=== PATIENT | female | born 1935 | race Caucasian/White ===

== ENCOUNTER 2017-03-12 15:36 | Inpatient (IN) ==
[2017-03-12 16:15] LABS: Basophils % 0.1 %; Eosinophils # 0.2 K/mcL (0.0-0.6); Eosinophils % 2.4 %; Hematocrit 20.9 % (35.3-44.9); Immature Granulocytes % 0.1 % (0-4); Lymphocytes # 2.7 K/mcL (0.6-4.6); Lymphocytes % 38.3 %; Mean Corpuscular HGB Conc 30.6 g/dL (31.6-35.5); Mean Corpuscular Volume 94.6 fL (83.0-100.0); Mean Platelet Volume 10.1 fL (9.4-12.4); Monocytes # 0.6 K/mcL (0.0-1.3); Monocytes % 8.3 %; Neutrophils # 3.6 K/mcL (1.6-8.9); Nucleated Red Blood Cells 0.3 /100 WBC (0); Platelet Count 284 K/mcL (140-400); Red Blood Count 2.21 M/mcL (3.82-4.97); Red Cell Distribution Width 14.2 % (11.5-14.5); Segmented Neutrophils % 50.8 %
[2017-03-12] MEDS ORDERED: 0.9 % Sodium Chloride 1,000 ML IVC ONE (16:20)
--- NOTE | 2017-03-12 16:20 | Emergency Department Note ---
Disposition Clinical Impression: GI bleed Qualifiers: GI bleed type/associated pathology: melena Qualified Code(s): K92.1 - Melena Anemia Qualifiers: Anemia type: unspecified type Qualified Code(s): D64.9 - Anemia, unspecified Disposition: Admitted As Inpatient Time of Disposition: 17:28 General Adult HPI - General Chief complaint: ED Weakness Stated complaint: Low hgb Time Seen by Provider: 03/12/17 15:40 Source: patient, EMS Mode of arrival: EMS Limitations: no limitations Nursing Notes Reviewed: Yes Vital Signs Reviewed: Yes - History of Present Illness HPI Narrative: 81-year-old female history of CAD, hypertension, diabetes, DVT on Eliquis presents to the ED via EMS from [facility] for abnormal hemoglobin. She is a poor historian and cannot provide insight into today's events. Per EMS report patient was sent here for a blood transfusion due to hemoglobin 6.0. She reports black tarry stools or a past several days. Denies any headache, chest pain, shortness of breath or abdominal pain. She reports episode of nausea last night which she believes was due to something she ate. She denies any trauma or fall. Upon medical record review she takes Eliquis for DVT as of November. In [facility] patient has been referred to Dr. Simmons for suspected G.I. bleed. Endoscopy was not performed due to no POA to give consent. Pain Scale: 0 - Related Data Allergies Allergy/AdvReac Type Severity Reaction Status Date / Time No Known Allergies Allergy Verified 03/12/17 16:33 All systems ED: reviewed and negative except as stated. Constitutional: Denies: fever, chills, weakness Cardiovascular: Denies: chest pain Respiratory: Denies: cough, dyspnea Gastrointestinal: Reports: melena. Denies: abdominal pain, nausea, vomiting Genitourinary: Denies: urgency, dysuria Musculoskeletal: Denies: back pain, neck pain Integumentary: Denies: rash, abrasion Neurological: Denies: headache Past Medical History - Past Medical History Attestation: Yes The following information was validated with the patient. Source: patient Medical history: Reports: coronary artery disease, diabetes, hypertension Psychiatric history: Reports: no psych history - Social History Smoking Status: Never smoker Smokeless Tobacco Status: No Alcohol use: Reports: none Drug use: Reports: none Physical Exam - General Limitations: no limitations General appearance: alert, in no apparent distress, other - Head Head exam: atraumatic, normocephalic, normal inspection - Eye Eye exam: Present: normal appearance, PERRL, EOMI, other (pale conjunctiva). Absent: scleral icterus - ENT ENT exam: normal exam, normal oropharynx, mucous membranes moist - Neck Neck exam: Present: normal inspection, full ROM, trachea midline - Chest Chest inspection: Present: normal inspection, symmetric chest wall rise - Respiratory Respiratory exam: Present: normal lung sounds bilaterally - Cardiovascular Cardiovascular exam: Present: regular rate, normal rhythm, normal heart sounds - Abdominal Exam Abdominal exam: Present: soft, Non-Tender, normal bowel sounds. Absent: tenderness, distention, guarding, rebound, rigidity - Rectal Exam Associate Juvenile Court Judge present during exam: Yes Rectal exam: Present: heme (+) stool, black stool, hemorrhoids - Extremities Exam Extremities exam: Present: normal inspection, full ROM, normal capillary refill. Absent: tenderness, pedal edema, calf tenderness - Back Exam Back exam: Present: normal inspection, full ROM. Absent: tenderness, CVA tenderness (R), CVA tenderness (L), vertebral tenderness - Neurological Exam Neurological exam: Present: alert, oriented X3 - Expanded Neurological Exam Patient oriented to: Present: person, place (She knows this is a hospital but answered [facility]), time (February is the month) Speech: Present: fluid speech Cranial nerves: EOM function (II, III, IV, ): Normal, facial sensation (V): Normal, facial palsy (VII): Normal, spinal accessory function (XI): Normal, tongue deviation (XII): Normal Upper motor neuron exam: lasha neglect: Absent bilaterally, pronator drift: Absent bilaterally Sensory exam upper extremity: light touch: Normal Sensory exam lower extremity: light touch: Normal - Psychiatric Psychiatric exam: Present: normal affect, normal mood - Skin Skin exam: Present: warm, dry, intact, normal color Course Course Narrative: 81-year-old female presents for possible blood transfusion. Report hemoglobin 6 at retirement. Reports melanic stool over the past several days. She appears in no acute distress. Conjunctiva pale. No sclera icterus. She is alert and oriented to person and time. She mistaken that this was [facility] but she knew that it was a hospital. Denies any chest pain or shortness of breath. Lung sounds are clear bilaterally. Abdomen is soft nontender nondistended. Rectal exam revealed a normal tone with black tarry stool. Will check that hemoglobin, chemistry, type and screen, and troponin. EKG performed showing LBBB, no old EKG for comparison. Anticipate admission. Review of medical records reveals scheduled EGD with Dr. Simmons in December 2016 but no endoscopy has been performed. She takes Eliquis for DVT - Reevaluation(s) Reevaluation #1: Stool hemoccult positive. Hemoglobin 6.4. Will transfuse 2 units pRBCs. Plan to admit. Patient reported to RN that she may have fallen today. Will order CT head with history of anticoagulant use. Awaiting hospitalist for admission. Time: 16:49 Reevaluation #2: CT head does not reveal acute intracranial abnormality. Will order protonix for GI bleed. Currently transfusing unit of pRBC. Time: 18:18 - Consultations Consultation #1: Spoke with on-call hospitalist lila Jacobs to admit for GI bleed anemia. No further orders at this time. Currently receiving 2 units pRBC transfusion. Consent obtained with attending physician Dr. Robin and myself. Time: 18:02 Vital Signs Temperature 98.0 F 03/12/17 15:44 Pulse Rate 88 03/12/17 15:44 Respiratory Rate 16 03/12/17 15:44 Blood Pressure 151/68 03/12/17 15:44 O2 Sat by Pulse Oximetry 98 03/12/17 15:44 Temperature 97.9 F 03/12/17 18:10 Pulse Rate 91 03/12/17 18:10 Respiratory Rate 18 03/12/17 18:10 Blood Pressure 139/54 03/12/17 18:10 O2 Sat by Pulse Oximetry 96 03/12/17 18:10 Oxygen Delivery Oxygen Delivery Room Air Medical Decision Making - Medical Records Medical records reviewed: Yes I reviewed the patient's medical records. - Lab Data Lab results reviewed: Yes I reviewed the patient's lab results. Result diagrams: 03/12/17 16:02 03/12/17 16:02 Lab Results 03/12/17 03/12/17 03/12/17 Range/Units 16:02 16:02 16:04 WBC 7.0 (4.3-11.1) K/mcL RBC 2.21 L (3.82-4.97) M/mcL Hgb 6.4 L (11.5-15.4) g/dL Hct 20.9 L (35.3-44.9) % MCV 94.6 (83.0-100.0) fL MCH 29.0 (28.0-33.3) pg MCHC 30.6 L (31.6-35.5) g/dL RDW 14.2 (11.5-14.5) % Plt Count 284 (140-400) K/mcL MPV 10.1 (9.4-12.4) fL Immature Gran % 0.1 (0-4) % Seg Neutrophils % 50.8 % Lymphocytes % 38.3 % Monocytes % 8.3 % Eosinophils % 2.4 % Basophils % 0.1 % Neutrophils # 3.6 (1.6-8.9) K/mcL Lymphocytes # 2.7 (0.6-4.6) K/mcL Monocytes # 0.6 (0.0-1.3) K/mcL Eosinophils # 0.2 (0.0-0.6) K/mcL Basophils # 0.0 (0.0-0.2) K/mcL Nucleated RBCs/100 WBC 0.3 H (0) /100 WBC Sodium 137 (136-145) mEq/L Potassium 4.5 (3.5-4.5) mEq/L Chloride 107 (98-109) mEq/L Carbon Dioxide 22 (19-29) mEq/L BUN 32 H (7-20) mg/dL Creatinine 1.26 H (0.57-1.11) mg/dL Est GFR ( Amer) 49 L (> 60) Est GFR (Non-Af Amer) 41 L (> 60) BUN/Creatinine Ratio 25 (6-26) Glucose 250 H (70-99) mg/dL Calculated Osmolality 299 (280-300) Calcium 8.6 (8.6-10.8) mg/dL Troponin I (0-0.03) ng/mL Stool Occult Blood Positive A (Negative) Blood Type Antibody Screen Crossmatch 03/12/17 03/12/17 Range/Units 16:09 16:10 WBC (4.3-11.1) K/mcL RBC (3.82-4.97) M/mcL Hgb (11.5-15.4) g/dL Hct (35.3-44.9) % MCV (83.0-100.0) fL MCH (28.0-33.3) pg MCHC (31.6-35.5) g/dL RDW (11.5-14.5) % Plt Count (140-400) K/mcL MPV (9.4-12.4) fL Immature Gran % (0-4) % Seg Neutrophils % % Lymphocytes % % Monocytes % % Eosinophils % % Basophils % % Neutrophils # (1.6-8.9) K/mcL Lymphocytes # (0.6-4.6) K/mcL Monocytes # (0.0-1.3) K/mcL Eosinophils # (0.0-0.6) K/mcL Basophils # (0.0-0.2) K/mcL Nucleated RBCs/100 WBC (0) /100 WBC Sodium (136-145) mEq/L Potassium (3.5-4.5) mEq/L Chloride (98-109) mEq/L Carbon Dioxide (19-29) mEq/L BUN (7-20) mg/dL Creatinine (0.57-1.11) mg/dL Est GFR ( Amer) (> 60) Est GFR (Non-Af Amer) (> 60) BUN/Creatinine Ratio (6-26) Glucose (70-99) mg/dL Calculated Osmolality (280-300) Calcium (8.6-10.8) mg/dL Troponin I 0.03 (0-0.03) ng/mL Stool Occult Blood (Negative) Blood Type AB POSITIVE Antibody Screen NEGATIVE Crossmatch See Detail - Radiology Data Radiology results reviewed: Yes I reviewed the patient's radiology results. Head CT 03/12/17 16:50 IMPRESSION: No acute intracranial abnormality is identified. Age-appropriate cortical atrophy, with chronic microvascular ischemic change. D/ / Darrell Zarate MD / Darrell Zarate MD Interpreting Provider: Darrell Zarate MD - EKG Data EKG #1 EKG attestation: Yes I reviewed and interpreted this EKG. EKG results narrative: EKG performed 1550 normal sinus rhythm with left bundle branch block QRS 143, there is appropriate disconcordant T wave inversion. No Sgarbossa criteria met. No old EKG available for comparison. Patient is not complaining of chest pain.
[2017-03-12 16:29] LABS: Calcium 8.6 mg/dL (8.6-10.8); Potassium 4.5 mEq/L (3.5-4.5)
[2017-03-12 16:34] LABS: Hemoglobin 6.4 g/dL (11.5-15.4)
--- NOTE | 2017-03-12 17:00 | Emergency Department Note ---
START Narrative - START START: I examined this patient and my medical decision-making was reviewed with the NETWORK OPERATIONS CENTER TECHNICIAN/PA/Advanced Practice Nurse/Resident Physician. I agree with the documented findings, disposition and treatment plan as described except to the extent set forth below. ED attending note: Patient seen with emergency medicine resident Dr. Goldsmith. Please see a copy of his note for details of the H&P, evaluation, management and disposition of this patient. 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 Patient complaining of black tarry stools she did have melenic guaiac positive stools. Hemoglobin is 6.4. 2 units PRBCs are being ordered for transfusion. Admission anticipated awaiting callback from hospitalist. Provided 45 minutes of critical care services for this patient.
[2017-03-12] MEDS ORDERED: Pantoprazole 40 MG VIAL IVP ONE ×2 (18:23→22:11)
[2017-03-12] MEDS ORDERED: Naloxone 0.4 MG/ML INJ IVP PRN (19:49)
[2017-03-12] MEDS ORDERED: Ondansetron ODT 4 MG TAB.RAPDIS PO PRN (19:57)
[2017-03-12] MEDS ORDERED: Cefuroxime PO 500 MG TABLET PO SCH (21:00)
[2017-03-12] MEDS ORDERED: metroNIDAZOLE 250 MG TABLET PO SCH (21:00)
[2017-03-12] MEDS ORDERED: Furosemide 40 MG/4 ML VIAL IVP ONE (21:24)
[2017-03-12] MEDS ORDERED: Ipratropium/Albuterol Neb 3 ML IH ONE (21:25)
[2017-03-12] MEDS ORDERED: Ipratropium/Albuterol Neb 3 ML ONE (21:27)
[2017-03-12 21:31] LABS: ABG Base Excess 0.4 mEq/L (-2.0 to 3.0); ABG Oxygen Saturation 99 % (95-98); ABG PCO2 33 mmHg (35-45); ABG PH 7.47 pH Units (7.32-7.45); ABG PO2 152 mmHg (85-104)
[2017-03-12 21:35] LABS: Blood Gas FiO2 40 %
[2017-03-12] MEDS ORDERED: Ondansetron 4 MG/2 ML VIAL IVP PRN (22:09)
--- NOTE | 2017-03-12 22:16 | Event Note ---
Date of Encounter: 03/12/17 Time of Encounter: 22:13 Patient seen and examined with nurse practitioner. 81-year-old female with Daisha the past few days. Hemoglobin 6 we are unsure of her baseline level. Suspected G.I. bleed probably upper. Protonix drip initiated. Patient had an event on arrival to the floor and actually a rapid response was called. nurse practitioner witnessed the patient choking on food. Her x-ray however shows evidence of pulmonary congestion after she had received one unit of blood. 40 IV Lasix was given. She is currently on 5 L of nasal oxygen. Will keep NPO. Speech to see. She denies any problems swallowing before
[2017-03-12] MEDS: Pantoprazole 40 MG in 0.9 % Sodium Chloride Mini Bag 100 ML IVC SCH (22:26)
[2017-03-12 22:53] LABS: INR 1.2; Prothrombin Time 12.6 Seconds (9.4-12.1)
[2017-03-12 22:56] LABS: Activated Partial Thrombo Time 30.6 Seconds (26.0-36.0)
--- NOTE | 2017-03-12 23:37 | Internal Med History&Physical ---
Date of Encounter: 03/13/17 Time of Encounter: 22:00 Assessment and Plan (1) GI bleed Current visit: Yes Status: Acute Patient has been monitored for possible GI bleed was supposed to undergo a endoscopy per however had not obtained consent from power of operator catalyst concentration she resides at [facility] and has been experiencing melena she had a drop in hemoglobin 6.4. Type and screen for 2 units PRBCs transfused. Continue to monitor for active bleeding Monitor CBC Patient's nothing by mouth Consult GI Protonix drip Qualifiers: GI bleed type/associated pathology: melena Qualified Code(s): K92.1 - Melena (2) CAD (coronary artery disease) Current visit: Yes Status: Acute He will continue with metoprolol will hold aspirin for now due to possible bleed Qualifiers: Coronary Disease-Associated Artery/Lesion type: [place] artery [place] vs. transplanted heart: [place] heart Associated angina: without angina Qualified Code(s): I25.10 - Atherosclerotic heart disease of [place] coronary artery without angina pectoris (3) Diabetes mellitus Current visit: Yes Status: Acute Patient is nothing by mouth Accu-Cheks every 6 hours with sliding scale. Once patient able to take oral will resume Accu-Cheks before meals at bedtime with sliding scale and basal insulin Qualifiers: Diabetes mellitus type: type 2 Diabetes mellitus complication status: without complication Diabetes mellitus terminal worker insulin use: with shelter use Qualified Code(s): E11.9 - Type 2 diabetes mellitus without complications ; Z79.4 - half-way (current) use of insulin (4) HTN (hypertension) Current visit: Yes Status: Acute Presently controlled we will continue with metoprolol Qualifiers: Hypertension type: essential hypertension Qualified Code(s): I10 - Essential (primary) hypertension (5) DVT prophylaxis Current visit: Yes Status: Acute (6) Hx of deep venous thrombosis Current visit: Yes Status: Acute 1 SCD - possible GI bleed Internal Medicine - H&P: HPI Chief complaint: low Hgb Admitted From: Emergency Dept Plans for Post Hospital Care: Home History of present illness: Ms. Sanchez is a 81 year old female past medical history of coronary artery disease hypertension dementia diabetes DVT on Eliquis information obtained from medical records patient is a poor historian has history of dementia. Coronary records patient resides in an [facility] she presently being monitored for possible GI bleed. Blood work drawn today revealed low hemoglobin in 6.4 She has been experiencing some black tarry stools. Apparently she has been referred to Dr. Simmons for suspected GI bleed she is to undergo endoscopy however it has not been performed due to power of operator catalyst concentration has not given consent. She was sent to the ER for evaluation. Upon presentation hemoglobin rechecked revealed hemoglobin 6.4 she stool occult positive troponin was 0.03 patient's creatinine was 1.20. Patient was typed and crossed for 2 units and and transfused. Protonic strip initiated she was admitted for further workup and evaluation.Upon arrival to the floor I walked into the room and witnessed the patient choking on food. A rapid response was called. She was suctioned Oxygen applied ABG/ xray obtained Her x-ray shows evidence of pulmonary congestion after she had received one unit of blood. 40 IV Lasix was given. She is currently on 5 L of nasal oxygen. Will keep NPO. She denies any problems swallowing, consult speech. Lung sound with scattered crackles heart sounds S1 S2 no rubs clicks gallops murmur noted Discussed case with Dr Tolbert who agrees with plan Past Med Surg Social Fam HX - Past Medical History Medical history: coronary artery disease, diabetes, hypertension, other Psychiatric history: no psych history - Past Surgical History Surgical History: cholecystectomy, hysterectomy, knee replacement - Social History Smoking Status: Never smoker Smokeless Tobacco Status: No Alcohol use: none Drug use: none - Family History Brother History Unknown: Yes Internal Medicine - H&P: Meds ALPRAZolam [Xanax 0.5 MG Tablet] 0.5 mg PO TID PRN 03/12/17 [History] Acetaminophen [Tylenol] 650 mg PO Q4H PRN 03/12/17 [History] Apixaban [Eliquis] 2.5 mg PO BID 03/12/17 [History] Aspirin Enteric Coated [Aspirin EC] 81 mg PO DAILY 03/12/17 [History] Cefuroxime PO [Ceftin] 500 mg PO BID 03/12/17 [History] Glimepiride [Amaryl] 4 mg PO BID 03/12/17 [History] Insulin Glargine [Lantus] 10 unit SQ QAM 03/12/17 [History] Insulin LISPRO [HumaLOG] 2 - 12 units SQ ACHS 03/12/17 [History] Metoprolol [Lopressor] 25 mg PO BID 03/12/17 [History] Ondansetron HCl [Zofran] 4 mg PO Q8H PRN 03/12/17 [History] OxyCODONE Immed Rel [Roxicodone 5 MG] 5 - 10 mg PO Q4HR PRN 03/12/17 [History] Sennosides/Docusate Sodium [Senna Plus] 1 each PO BID 03/12/17 [History] metroNIDAZOLE [Flagyl] 250 mg PO BID 03/12/17 [History] Allergies sulfamethoxazole [From Bactrim] Adverse Reaction (Verified 03/12/17 18:49) See Comments list from [place] trimethoprim [From Bactrim] Adverse Reaction (Verified 03/12/17 18:49) See Comments list from [place] ROS unobtainable: due to mental status All Systems PM: A 10-system review of systems was performed and is negative for pertinent findings except as documented above in the HPI. - Constitutional Vitals: Temp Pulse Resp BP Pulse Ox 97.9 F 134 24 150/72 91 03/12/17 21:30 03/12/17 22:02 03/12/17 22:02 03/12/17 21:30 03/12/17 22:02 General appearance: Present: A&O X 3 - Head Head exam: Present: atraumatic, normocephalic - Eye Eye exam: Present: PERRL, conjuntiva pink, sclera anicteric Pupils: Present: PERRL - Neck Neck exam general surgery: Present: supple, trachea midline. Absent: lymphadenopathy - Respiratory Respiratory exam: Present: rales. Absent: accessory muscle use, rhonchi, wheezes - Cardiovascular Cardiovascular exam: Present: RRR, +S1, +S2. Absent: diastolic murmur, gallop, rubs, systolic murmur - GI/Abdominal GI/Abdominal exam: Present: normal bowel sounds, soft, no peritoneal signs. Absent: distended, tenderness - Extremities Exam Extremities exam: Present: warm, radial pulses palpable and symetrical. Absent : calf tenderness, cyanotic, pedal edema - Neurological Exam Neurological exam: Present: CN II-XII intact, oriented X3, no focal deficits. Absent: pronater drift, facial droop, speech deficit - Skin Skin exam: Present: dry, intact Internal Med - H&P Results - Labs CBC & Chem 7: 03/12/17 16:02 03/12/17 16:02 - ABG Interpretation ABG results: 03/12/17 21:24 ABG pH 7.47 H ABG pCO2 33 L ABG pO2 152 H ABG HCO3 24.0 ABG Total CO2 25.0 ABG O2 Saturation 99 H ABG Base Excess 0.4 - Impressions ITS Impressions Chest X-Ray 03/12/17 21:29 IMPRESSION: Bilateral airspace disease is suspicious for pulmonary edema. Suspected left pleural effusion. Pneumonia could also have appearance. Follow-up is recommended D/ / Rosette Hidalgo Cha, MD / Rosette Hidalgo Cha, MD Interpreting Provider: Rosette Hidalgo Cha, MD - Diagnostic Studies Other Images Additional comments: Head CT 03/12/17 16:50 IMPRESSION: No acute intracranial abnormality is identified. Age-appropriate cortical atrophy, with chronic microvascular ischemic change. D/ / Darrell Zarate MD / Darrell Zarate MD Interpreting Provider: Darrell Zarate MD Chest X-Ray 03/12/17 21:29 IMPRESSION: Bilateral airspace disease is suspicious for pulmonary edema. Suspected left pleural effusion. Pneumonia could also have appearance. Follow-up is recommended D/ / Rosette Hidalgo Cha, MD / Rosette Hidalgo Cha, MD Interpreting Provider: Rosette Hidalgo Cha, MD - VTE Documentation of Mechanical Device: Graduated compression elastic hosiery
[2017-03-13] MEDS ORDERED: D5% in Water 1,000 ML IVC PRN (00:08)
[2017-03-13] MEDS ORDERED: Dextrose Gel 15 GM PO PRN ×2 (00:08)
[2017-03-13] MEDS ORDERED: *HR* Dextrose 50 % in Water (Syg) 50 ML SYRINGE IVP PRN (00:08)
[2017-03-13] MEDS: Pantoprazole 40 MG in 0.9 % Sodium Chloride Mini Bag 100 ML IVC SCH ×3 (02:35→23:23)
[2017-03-13] MEDS ORDERED: Pantoprazole 40 MG VIAL IVP SCH (06:00)
[2017-03-13] MEDS: Insulin LISPRO 300 UNITS/3 ML VIAL SQ SCH ×3 (06:08→17:21)
[2017-03-13 06:25] LABS: Basophils % 0.3 %; Eosinophils # 0.2 K/mcL (0.0-0.6); Hematocrit 20.4 % (35.3-44.9); Hemoglobin 6.4 g/dL (11.5-15.4); Immature Granulocytes % 0.5 % (0-4); Lymphocytes # 2.4 K/mcL (0.6-4.6); Lymphocytes % 35.3 %; Mean Corpuscular HGB Conc 31.4 g/dL (31.6-35.5); Mean Corpuscular Volume 92.3 fL (83.0-100.0); Mean Platelet Volume 9.9 fL (9.4-12.4); Monocytes # 0.6 K/mcL (0.0-1.3); Monocytes % 8.4 %; Neutrophils # 3.5 K/mcL (1.6-8.9); Nucleated Red Blood Cells 0.3 /100 WBC (0); Platelet Count 235 K/mcL (140-400); Red Blood Count 2.21 M/mcL (3.82-4.97); Red Cell Distribution Width 14.5 % (11.5-14.5); Segmented Neutrophils % 52.5 %
[2017-03-13 06:42] LABS: Calcium 8.3 mg/dL (8.6-10.8); Potassium 4.5 mEq/L (3.5-4.5)
[2017-03-13] MEDS ORDERED: Insulin DETEMIR 100 UNIT/ML X5UNITS SQ SCH (09:00)
--- NOTE | 2017-03-13 09:29 | Internal Med Progress Note ---
Date of Encounter: 03/13/17 Time of Encounter: 09:26 - Assessment and plan (1) CAD (coronary artery disease) Current Visit: No Status: Acute Qualifiers: Coronary Disease-Associated Artery/Lesion type: [place] artery [place] vs. transplanted heart: [place] heart Associated angina: without angina Qualified Code(s): I25.10 - Atherosclerotic heart disease of [place] coronary artery without angina pectoris (2) DVT prophylaxis Current Visit: Yes Status: Acute Assessment and plan: Due to GI bleed she is on SCDs only (3) Diabetes mellitus Current Visit: Yes Status: Acute Assessment and plan: Accu-Chek 4 times a day with sliding scale coverage Qualifiers: Diabetes mellitus type: type 2 Diabetes mellitus complication status: without complication Diabetes mellitus medical terminologist insulin use: with intermediate use Qualified Code(s): E11.9 - Type 2 diabetes mellitus without complications ; Z79.4 - [facility] (current) use of insulin (4) GI bleed Current Visit: Yes Status: Acute Assessment and plan: Patient is on the Levaquin and had melanotic stools. H&H every 6 transfused 2 units continue IV fluids and IV Protonix. General surgery plans to do EGD. Qualifiers: GI bleed type/associated pathology: melena Qualified Code(s): K92.1 - Melena (5) HTN (hypertension) Current Visit: Yes Status: Acute Assessment and plan: Continue home medicines for blood pressure as needed Qualifiers: Hypertension type: essential hypertension Qualified Code(s): I10 - Essential (primary) hypertension (6) Hx of deep venous thrombosis Current Visit: Yes Status: Acute Assessment and plan: Patient had DVT in November. I would like to know the details from the previous record about the exact location. She has been on Levaquin since however I am not sure if it has been a stop ever since she has recently developed malaise and not melena - Subjective Interval history: Ms. Latonya Berrios is an 81-year-old female who has come in with GI bleed. Apparently she has history of coronary artery disease hypertension diabetes and recent DVT diagnosed in November 2016. Patient has been on a liquid's and it is not clear to me if she currently takes it not but in any case few weeks back she developed melanotic stool problem and was seen by Dr. israel for an EGD which could not be performed as there was no one to provide consent. Patient to return to the ER with abdominal pain and hemoglobin of 6. She plans to be transfused and her surgery has been consulted for possible EGD. And denies any chest pain however it was noted that last night she choke on food and there ended up having aspiration. Chest x-ray showed bilateral atelectasis and some pleural effusion. I will add IV Zosyn for now while she is already on Protonix. Her antiplatelets and to look for nerve VII on hold. We will check her hemoglobin every 6 hours CBC and CMP on regular basis and will continue to give her IV fluid gently. I would like to know if she had any recent echocardiogram to evaluate her cardiac status. - Constitutional Vitals: Temp Pulse Resp BP Pulse Ox 98.6 F 91 18 131/70 94 03/13/17 07:53 03/13/17 07:53 03/13/17 07:53 03/13/17 07:53 03/13/17 07:53 General appearance: Present: A&O X 3 - Head Head exam: Present: atraumatic, normocephalic - Eye Eye exam: Present: PERRL, conjuntiva pink, sclera anicteric Pupils: Present: PERRL - Neck Neck exam general surgery: Present: supple, trachea midline. Absent: lymphadenopathy - Respiratory Respiratory exam: Present: CTAB. Absent: accessory muscle use, rales, rhonchi, wheezes - Cardiovascular Cardiovascular exam: Present: RRR, +S1, +S2. Absent: diastolic murmur, gallop, rubs, systolic murmur - GI/Abdominal GI/Abdominal exam: Present: normal bowel sounds, soft, no peritoneal signs. Absent: distended, tenderness - Extremities Exam Extremities exam: Present: warm, radial pulses palpable and symetrical. Absent : calf tenderness, cyanotic, pedal edema - Neurological Exam Neurological exam: Present: CN II-XII intact, oriented X3, no focal deficits. Absent: pronater drift, facial droop, speech deficit - Skin Skin exam: Present: dry, intact Internal Medicine: Result - Labs CBC & Chem 7: 03/13/17 10:03 03/13/17 06:11 Labs: Short CBC 03/13/17 Range/Units 06:11 WBC 6.7 (4.3-11.1) K/mcL Hgb 6.4 L (11.5-15.4) g/dL Hct 20.4 L (35.3-44.9) % Plt Count 235 (140-400) K/mcL Neutrophils # 3.5 (1.6-8.9) K/mcL BMP 03/13/17 06:11 Sodium 141 Potassium 4.5 Chloride 111 H Carbon Dioxide 23 BUN 31 H Creatinine 1.30 H Glucose 173 H Calcium 8.3 L - ABG Interpretation ABG results: ABG ABG pH 7.47 pH Units (7.32-7.45) H 03/12/17 21:24 ABG pCO2 33 mmHg (35-45) L 03/12/17 21:24 ABG pO2 152 mmHg (85-104) H 03/12/17 21:24 ABG O2 Saturation 99 % (95-98) H 03/12/17 21:24 PT/INR, D-dimer PT 12.6 Seconds (9.4-12.1) H 03/12/17 22:21 - VTE Documentation of Mechanical Device: Graduated compression elastic hosiery Consult Discharge Plan - Plan Referrals: Yissel Mclean MD [Primary Care Provider] -
[2017-03-13 10:19] LABS: Hematocrit 22.6 % (35.3-44.9)
--- NOTE | 2017-03-13 10:53 | Gastroenterology Consult Note ---
Date of Encounter: 03/13/17 Time of Encounter: 10:10 - Assessment and plan (1) GI bleed Current Visit: Yes Status: Acute Assessment and plan: Pt with melena. Plan for EGD today to r/o esophagitis, gastritis, duodenitis, PUD, MW tear, or AVM. Pt was alert and oriented x 3, and signed consent for EGD with RN present, who agreed with patient's decision making capability. Qualifiers: GI bleed type/associated pathology: melena Qualified Code(s): K92.1 - Melena (2) Anemia Current Visit: Yes Status: Acute Assessment and plan: Secondary to GI bleed. Hgb on admission 6.4, 4 units PRBC have been ordered. Continue to monitor CBC and transfuse PRBC as needed. plan for EGD today. Check iron and ferritin from ED sample. Qualifiers: Anemia type: unspecified type Qualified Code(s): D64.9 - Anemia, unspecified (3) CAD (coronary artery disease) Current Visit: No Status: Acute Qualifiers: Coronary Disease-Associated Artery/Lesion type: [place] artery [place] vs. transplanted heart: [place] heart Associated angina: without angina Qualified Code(s): I25.10 - Atherosclerotic heart disease of [place] coronary artery without angina pectoris - Time Spent With Patient Total time spent is greater than 50% in coordination of care (as documented) at patient's floor/unit and/or counseling patient: GI History of Present Illness - Data of Consult Patient: known to practice within the last 3 years Consult date: 03/13/17 Requesting Physician: July Cross - Consult Narrative Reason for consult: GI Bleed History of present illness: Ms. Sanchez is a 81 year old female with PMHx of CAD, DM, HTN, dementia, DVT on Eliquis who was sent to the ED with Hgb 6.4. She was experiencing black tarry stools. Upon presentation hemoglobin rechecked revealed hemoglobin 6.4 she stool occult positive troponin was 0.03 patient's creatinine was 1.20. She was started on PPI drip. On arrival to the floor, the INBOUND SALES MANAGER witnessed he patient choking on food. Her x-ray however shows evidence of pulmonary congestion after she had received one unit of blood. 40 IV Lasix was given. The patient was referred to GI in November 2016 for nausea. The pt saw Dr. Simmons on 01/20/17 for her nausea, and EGD was ordered, and consent was not signed. We were awaiting POA to sign consent. Per discussion with Mago Richardson ([email or web address]), the patient signs her own consents. The patient is alert and oriented this AM, and answering all questions appropriately. She denies fever, chills, chest pain, abdominal pain, nausea, vomiting, or hematochezia. Procedures: None NSAIDs: ASA Anticoagulation: Eliquis Past Med Surg Social Fam HX - Past Medical History Medical history: coronary artery disease, diabetes, hypertension, other Psychiatric history: no psych history - Past Surgical History Surgical History: cholecystectomy, hysterectomy, knee replacement - Social History Smoking Status: Never smoker Smokeless Tobacco Status: No Alcohol use: none Drug use: none - Family History Brother History Unknown: Yes - Gastrointestinal Gastrointestinal: Present: as per HPI - Constitutional Constitutional: as per HPI - EENT Eyes: as per HPI Ears: Present: as per HPI Nose, mouth and throat: Present: as per HPI - Cardiovascular Cardiovascular ROS: Present: as per HPI - Respiratory Respiratory IM: Present: as per HPI - Genitourinary Genitourinary: Absent: change in color, Urinary frequency - Neurological ROS Neurological GI: Present: as per HPI - Hematologic/Lymphatic Hematologic/Lymphatic pediatric: Present: as per HPI - Musculoskeletal Musculoskeletal ROS GI: Present: as per HPI - Integumentary Integumentary GI: Present: as per HPI - Psychiatric ROS Psychiatric GI: Present: as per HPI - Endocrine Endocrine IM: Present: as per HPI - Constitutional Vitals: Temp Pulse Resp BP Pulse Ox 98.6 F 91 18 131/70 94 03/13/17 07:53 03/13/17 07:53 03/13/17 07:53 03/13/17 07:53 03/13/17 07:53 General appearance: Present: cooperative, A&O X 3, no acute distress, answers questions appropriately - Head Head exam: Present: atraumatic, normocephalic - Eye Eye exam: Present: normal appearance, sclera anicteric - ENT ENT exam: Present: mucous membranes dry - Neck Neck exam general surgery: Present: normal inspection, trachea midline - Respiratory Respiratory exam: Present: decreased breath sounds, CTAB - Cardiovascular Cardiovascular exam: Present: RRR, +S1, +S2 - GI/Abdominal GI/Abdominal exam: Present: soft, no peritoneal signs. Absent: distended, firm , guarding, tenderness - Rectal Rectal exam: Present: deferred - Extremities Exam Extremities exam: Present: warm - Neurological Exam Neurological exam: Present: oriented X3, no focal deficits - Psychiatric Psychiatric exam: Present: normal affect, normal mood - Skin Skin exam: Present: dry, intact, normal color, warm Results - Labs CBC & Chem 7: 03/13/17 10:03 03/13/17 06:11 Labs: Last Result Calcium 8.3 mg/dL (8.6-10.8) L 03/13/17 06:11 Troponin I 0.03 ng/mL (0-0.03) 03/12/17 16:09 Stool Occult Blood Positive (Negative) A 03/12/17 16:04 Entire Visit Hgb 7.0 g/dL (11.5-15.4) L 03/13/17 10:03 Hct 22.6 % (35.3-44.9) L 03/13/17 10:03 PT 12.6 Seconds (9.4-12.1) H 03/12/17 22:21 - ABG ABG results: ABG ABG pH 7.47 pH Units (7.32-7.45) H 03/12/17 21:24 ABG pCO2 33 mmHg (35-45) L 03/12/17 21:24 ABG pO2 152 mmHg (85-104) H 03/12/17 21:24 ABG O2 Saturation 99 % (95-98) H 03/12/17 21:24 PT/INR, D-dimer PT 12.6 Seconds (9.4-12.1) H 03/12/17 22:21 Consult Discharge Plan - Plan Referrals: Yissel Mclean MD [Primary Care Provider] -
[2017-03-13] MEDS ORDERED: 0.9 % Sodium Chloride 250 ML ONE (13:17)
[2017-03-13] MEDS: Piperacillin/Tazobactam 3.375 GM in D5% in Water (Mini-Bag+) 100 ML IVPB SCH ×2 (17:22→23:24)
[2017-03-13 21:02] LABS: Hematocrit 27.2 % (35.3-44.9)
[2017-03-13 21:03] LABS: Hemoglobin 8.7 g/dL (11.5-15.4)
[2017-03-14] MEDS: Insulin LISPRO 300 UNITS/3 ML VIAL SQ SCH ×5 (00:19→21:08)
[2017-03-14] MEDS: Pantoprazole 40 MG in 0.9 % Sodium Chloride Mini Bag 100 ML IVC SCH ×3 (04:21→04:43)
[2017-03-14 04:59] LABS: Basophils % 0.3 %; Eosinophils # 0.3 K/mcL (0.0-0.6); Eosinophils % 3.8 %; Hemoglobin 8.9 g/dL (11.5-15.4); Immature Granulocytes % 0.3 % (0-4); Lymphocytes # 2.3 K/mcL (0.6-4.6); Lymphocytes % 26.1 %; Mean Corpuscular HGB Conc 31.8 g/dL (31.6-35.5); Mean Corpuscular Hemoglobin 28.7 pg (28.0-33.3); Mean Corpuscular Volume 90.3 fL (83.0-100.0); Mean Platelet Volume 9.7 fL (9.4-12.4); Monocytes # 0.8 K/mcL (0.0-1.3); Monocytes % 8.8 %; Neutrophils # 5.4 K/mcL (1.6-8.9); Platelet Count 251 K/mcL (140-400); Red Cell Distribution Width 14.6 % (11.5-14.5); Segmented Neutrophils % 60.7 %
[2017-03-14 05:27] LABS: Albumin 2.6 g/dL (3.5-5.0); Albumin/Globulin Ratio 0.8 (1.1-2.2); Bilirubin,Total 1.1 mg/dL (0.2-1.2); Calcium 8.4 mg/dL (8.6-10.8); Globulin 3.4 g/dL (2.4-3.5); Potassium 4.2 mEq/L (3.5-4.5)
[2017-03-14] MEDS: Piperacillin/Tazobactam 3.375 GM in D5% in Water (Mini-Bag+) 100 ML IVPB SCH ×2 (07:31→15:57)
[2017-03-14] MEDS ORDERED: *HR* Midazolam HCl 5 MG/5 ML VIAL IVP ONE (07:55)
[2017-03-14] MEDS ORDERED: *HR* FentaNYL (PF) 100 MCG/2 ML VIAL ONE (07:55)
[2017-03-14] MEDS ORDERED: Tetracaine/Benzocaine/Butamben 200MG/SPRAY (100SPY/BOT) MM ONE (08:25)
[2017-03-14] MEDS ORDERED: *HR* FentaNYL (PF) 100 MCG/2 ML VIAL IVP PRN (08:25)
[2017-03-14] MEDS ORDERED: *HR* Midazolam HCl 5 MG/5 ML VIAL IVP PRN (08:25)
[2017-03-14 10:42] LABS: Hematocrit 27.4 % (35.3-44.9); Hemoglobin 8.8 g/dL (11.5-15.4)
--- NOTE | 2017-03-14 12:31 | Electrocardiograph Report ---
[place] [id number] Test Date: 2017-03-12 Pat Name: Latonya Sanchez Department: 105 Room: 3A Gender: F Chorus Master: JOSE MANUEL : 1935 Requested By: Kayode Goldsmith Order Number: [id number] Reading MD: Tony Partida Measurements Intervals [place] Rate: 88 P: 60 PA: 183 QRS: 11 QRSD: 143 T: 193 QT: 403 QTc: 449 Interpretive Statements SINUS RHYTHM LEFT BUNDLE BRANCH BLOCK Electronically Signed On 03-14-2017 12:29:16 EDT by Tony Partida
[2017-03-14 16:18] LABS: Hematocrit 31.3 % (35.3-44.9); Hemoglobin 9.7 g/dL (11.5-15.4)
--- NOTE | 2017-03-14 18:44 | Internal Med Progress Note ---
Date of Encounter: 03/14/17 Time of Encounter: 18:42 - Assessment and plan (1) CAD (coronary artery disease) Current Visit: No Status: Acute Qualifiers: Coronary Disease-Associated Artery/Lesion type: [place] artery [place] vs. transplanted heart: [place] heart Associated angina: without angina Qualified Code(s): I25.10 - Atherosclerotic heart disease of [place] coronary artery without angina pectoris (2) DVT prophylaxis Current Visit: Yes Status: Acute (3) Diabetes mellitus Current Visit: Yes Status: Acute Qualifiers: Diabetes mellitus type: type 2 Diabetes mellitus complication status: without complication Diabetes mellitus terminal clerk insulin use: with halfway use Qualified Code(s): E11.9 - Type 2 diabetes mellitus without complications ; Z79.4 - skilled nursing (current) use of insulin (4) GI bleed Current Visit: Yes Status: Acute Qualifiers: GI bleed type/associated pathology: melena Qualified Code(s): K92.1 - Melena (5) HTN (hypertension) Current Visit: Yes Status: Acute Qualifiers: Hypertension type: essential hypertension Qualified Code(s): I10 - Essential (primary) hypertension (6) Hx of deep venous thrombosis Current Visit: Yes Status: Acute - Subjective Interval history: Ms. Latonya Berrios is an 81-year-old female who has come in with GI bleed. Apparently she has history of coronary artery disease hypertension diabetes and recent DVT diagnosed in November 2016. Patient has been on a liquid's and it is not clear to me if she currently takes it not but in any case few weeks back she developed melanotic stool problem and was seen by Dr. israel for an EGD which could not be performed as there was no one to provide consent. Patient to return to the ER with abdominal pain and hemoglobin of 6. She plans to be transfused and her surgery has been consulted for possible EGD. And denies any chest pain however it was noted that last night she choke on food and there ended up having aspiration. Chest x-ray showed bilateral atelectasis and some pleural effusion. I will add IV Zosyn for now while she is already on Protonix. Her antiplatelets and to look for nerve VII on hold. We will check her hemoglobin every 6 hours CBC and CMP on regular basis and will continue to give her IV fluid gently. I would like to know if she had any recent echocardiogram to evaluate her cardiac status. 03/14 patient was seen this morning and she looked much better however in the afternoon she started looking exhausted coughing and developed low-grade temperature tachycardia. We are going to get a chest x-ray which is being ordered. Currently she is on Zosyn which provides survey Preet for which for aspiration pneumonia however if she develop white count of fever and we may add vancomycin to cover for hospital-acquired pneumonia. Hemoglobin is stable and is 9.7 this morning. She is iron deficient and might need some IV iron but vital due to fever I will avoid it. Her creatinine is slowly going up and now it is 1.6. - Constitutional Vitals: Temp Pulse Resp BP Pulse Ox 100.3 F H 103 18 166/88 95 03/14/17 18:18 03/14/17 18:18 03/14/17 18:18 03/14/17 18:18 03/14/17 18:18 General appearance: Present: A&O X 3 - Head Head exam: Present: atraumatic, normocephalic - Eye Eye exam: Present: PERRL, conjuntiva pink, sclera anicteric Pupils: Present: PERRL - Neck Neck exam general surgery: Present: supple, trachea midline. Absent: lymphadenopathy - Respiratory Respiratory exam: Present: CTAB. Absent: accessory muscle use, rales, rhonchi, wheezes - Cardiovascular Cardiovascular exam: Present: RRR, +S1, +S2. Absent: diastolic murmur, gallop, rubs, systolic murmur - GI/Abdominal GI/Abdominal exam: Present: normal bowel sounds, soft, no peritoneal signs. Absent: distended, tenderness - Extremities Exam Extremities exam: Present: warm, radial pulses palpable and symetrical. Absent : calf tenderness, cyanotic, pedal edema - Neurological Exam Neurological exam: Present: CN II-XII intact, oriented X3, no focal deficits. Absent: pronater drift, facial droop, speech deficit - Skin Skin exam: Present: dry, intact Internal Medicine: Result - Labs CBC & Chem 7: 03/14/17 15:46 03/14/17 04:36 Labs: Short CBC 03/13/17 03/14/17 03/14/17 Range/Units 20:53 04:36 09:10 WBC 8.9 (4.3-11.1) K/mcL Hgb 8.7 L D 8.9 L 8.8 L (11.5-15.4) g/dL Hct 27.2 L 28.0 L 27.4 L (35.3-44.9) % Plt Count 251 (140-400) K/mcL Neutrophils # 5.4 (1.6-8.9) K/mcL 03/14/17 Range/Units 15:46 WBC (4.3-11.1) K/mcL Hgb 9.7 L (11.5-15.4) g/dL Hct 31.3 L (35.3-44.9) % Plt Count (140-400) K/mcL Neutrophils # (1.6-8.9) K/mcL BMP 03/14/17 04:36 Sodium 139 Potassium 4.2 Chloride 110 H Carbon Dioxide 21 BUN 27 H Creatinine 1.36 H Glucose 122 H Calcium 8.4 L Liver Function 03/14/17 Range/Units 04:36 Total Bilirubin 1.1 (0.2-1.2) mg/dL AST 19 (5-34) Units/L ALT 16 (0-55) Units/L Alkaline Phosphatase 82 (38-126) Units/L Albumin 2.6 L (3.5-5.0) g/dL - ABG Interpretation ABG results: ABG ABG pH 7.47 pH Units (7.32-7.45) H 03/12/17 21:24 ABG pCO2 33 mmHg (35-45) L 03/12/17 21:24 ABG pO2 152 mmHg (85-104) H 03/12/17 21:24 ABG O2 Saturation 99 % (95-98) H 03/12/17 21:24 PT/INR, D-dimer PT 12.6 Seconds (9.4-12.1) H 03/12/17 22:21 - VTE Documentation of Mechanical Device: Graduated compression elastic hosiery Consult Discharge Plan - Plan Referrals: Yissel Mclean MD [Primary Care Provider] -
[2017-03-14] MEDS ORDERED: Furosemide 20 MG/2 ML VIAL IVP ONE (19:07)
[2017-03-14 21:53] LABS: Hematocrit 29.7 % (35.3-44.9); Hemoglobin 9.6 g/dL (11.5-15.4)
[2017-03-15] MEDS: Piperacillin/Tazobactam 3.375 GM in D5% in Water (Mini-Bag+) 100 ML IVPB SCH ×4 (00:10→23:26)
[2017-03-15 05:38] LABS: Basophils % 0.3 %; Eosinophils # 0.1 K/mcL (0.0-0.6); Eosinophils % 0.6 %; Hematocrit 28.9 % (35.3-44.9); Hemoglobin 9.2 g/dL (11.5-15.4); Immature Granulocytes % 0.5 % (0-4); Lymphocytes # 2.3 K/mcL (0.6-4.6); Lymphocytes % 22.6 %; Mean Corpuscular HGB Conc 31.8 g/dL (31.6-35.5); Mean Corpuscular Hemoglobin 28.8 pg (28.0-33.3); Mean Corpuscular Volume 90.3 fL (83.0-100.0); Mean Platelet Volume 9.6 fL (9.4-12.4); Monocytes # 1.1 K/mcL (0.0-1.3); Monocytes % 10.5 %; Neutrophils # 6.7 K/mcL (1.6-8.9); Platelet Count 240 K/mcL (140-400); Red Cell Distribution Width 14.3 % (11.5-14.5); Segmented Neutrophils % 65.5 %
[2017-03-15 05:52] LABS: Albumin 2.6 g/dL (3.5-5.0); Albumin/Globulin Ratio 0.7 (1.1-2.2); Bilirubin,Total 1.6 mg/dL (0.2-1.2); Calcium 8.7 mg/dL (8.6-10.8); Globulin 3.5 g/dL (2.4-3.5); Potassium 4.1 mEq/L (3.5-4.5); Total Protein 6.1 g/dL (6.0-8.3)
[2017-03-15 09:06] LABS: Hematocrit 29.3 % (35.3-44.9); Hemoglobin 9.3 g/dL (11.5-15.4)
[2017-03-15] MEDS: Insulin LISPRO 300 UNITS/3 ML VIAL SQ SCH ×4 (09:14→22:13)
[2017-03-15] MEDS ORDERED: SODIUM CHLORIDE/NAHCO3/KCL/PEG 4,000 ML SOLN.RECON PO ONE (09:49)
--- NOTE | 2017-03-15 14:10 | Internal Med Progress Note ---
Date of Encounter: 03/15/17 Time of Encounter: 14:08 - Assessment and plan (1) CAD (coronary artery disease) Current Visit: No Status: Acute Qualifiers: Coronary Disease-Associated Artery/Lesion type: [place] artery [place] vs. transplanted heart: [place] heart Associated angina: without angina Qualified Code(s): I25.10 - Atherosclerotic heart disease of [place] coronary artery without angina pectoris (2) DVT prophylaxis Current Visit: Yes Status: Acute (3) Diabetes mellitus Current Visit: Yes Status: Acute Qualifiers: Diabetes mellitus type: type 2 Diabetes mellitus complication status: without complication Diabetes mellitus termite technician insulin use: with fdc use Qualified Code(s): E11.9 - Type 2 diabetes mellitus without complications ; Z79.4 - [facility] (current) use of insulin (4) GI bleed Current Visit: Yes Status: Acute Qualifiers: GI bleed type/associated pathology: melena Qualified Code(s): K92.1 - Melena (5) HTN (hypertension) Current Visit: Yes Status: Acute Qualifiers: Hypertension type: essential hypertension Qualified Code(s): I10 - Essential (primary) hypertension (6) Hx of deep venous thrombosis Current Visit: Yes Status: Acute - Subjective Interval history: Ms. Latonya Berrios is an 81-year-old female who has come in with GI bleed. Apparently she has history of coronary artery disease hypertension diabetes and recent DVT diagnosed in November 2016. Patient has been on a liquid's and it is not clear to me if she currently takes it not but in any case few weeks back she developed melanotic stool problem and was seen by Dr. israel for an EGD which could not be performed as there was no one to provide consent. Patient to return to the ER with abdominal pain and hemoglobin of 6. She plans to be transfused and her surgery has been consulted for possible EGD. And denies any chest pain however it was noted that last night she choke on food and there ended up having aspiration. Chest x-ray showed bilateral atelectasis and some pleural effusion. I will add IV Zosyn for now while she is already on Protonix. Her antiplatelets and to look for nerve VII on hold. We will check her hemoglobin every 6 hours CBC and CMP on regular basis and will continue to give her IV fluid gently. I would like to know if she had any recent echocardiogram to evaluate her cardiac status. 03/14 patient was seen this morning and she looked much better however in the afternoon she started looking exhausted coughing and developed low-grade temperature tachycardia. We are going to get a chest x-ray which is being ordered. Currently she is on Zosyn which provides survey Preet for which for aspiration pneumonia however if she develop white count of fever and we may add vancomycin to cover for hospital-acquired pneumonia. Hemoglobin is stable and is 9.7 this morning. She is iron deficient and might need some IV iron but vital due to fever I will avoid it. Her creatinine is slowly going up and now it is 1.6. 03/15 was still complaining of not feeling good however her examination is pretty unremarkable especially the abdominal examination. Yesterday we did a chest x-ray showed bilateral effusion more on the left and right pneumonia on the left and vascular congestion. I gave her Lasix 20 mg and I think that seemed to help her. I will repeat the same dose today. Her lab work essentially has improved showing normal white count hemoglobin is stable and renal function are improving however the bilirubin is 1.6 by rest of the LFTs are normal. I repeated tomorrow to see which direction they are going but if they worsen he can certainly lead to an ultrasound. - Constitutional Vitals: Temp Pulse Resp BP Pulse Ox 99.1 F 84 18 151/74 100 03/15/17 12:26 03/15/17 12:26 03/15/17 12:26 03/15/17 12:26 03/15/17 12:26 General appearance: Present: A&O X 3 - Head Head exam: Present: atraumatic, normocephalic - Eye Eye exam: Present: PERRL, conjuntiva pink, sclera anicteric Pupils: Present: PERRL - Neck Neck exam general surgery: Present: supple, trachea midline. Absent: lymphadenopathy - Respiratory Respiratory exam: Present: CTAB. Absent: accessory muscle use, rales, rhonchi, wheezes - Cardiovascular Cardiovascular exam: Present: RRR, +S1, +S2. Absent: diastolic murmur, gallop, rubs, systolic murmur - GI/Abdominal GI/Abdominal exam: Present: normal bowel sounds, soft, no peritoneal signs. Absent: distended, tenderness - Extremities Exam Extremities exam: Present: warm, radial pulses palpable and symetrical. Absent : calf tenderness, cyanotic, pedal edema - Neurological Exam Neurological exam: Present: CN II-XII intact, oriented X3, no focal deficits. Absent: pronater drift, facial droop, speech deficit - Skin Skin exam: Present: dry, intact Internal Medicine: Result - Labs CBC & Chem 7: 03/15/17 08:59 03/15/17 05:19 Labs: Short CBC 03/14/17 03/14/17 03/15/17 Range/Units 15:46 21:37 05:19 WBC 10.2 (4.3-11.1) K/mcL Hgb 9.7 L 9.6 L 9.2 L (11.5-15.4) g/dL Hct 31.3 L 29.7 L 28.9 L (35.3-44.9) % Plt Count 240 (140-400) K/mcL Neutrophils # 6.7 (1.6-8.9) K/mcL 03/15/17 Range/Units 08:59 WBC (4.3-11.1) K/mcL Hgb 9.3 L (11.5-15.4) g/dL Hct 29.3 L (35.3-44.9) % Plt Count (140-400) K/mcL Neutrophils # (1.6-8.9) K/mcL BMP 03/15/17 05:19 Sodium 136 Potassium 4.1 Chloride 106 Carbon Dioxide 23 BUN 20 Creatinine 1.19 H Glucose 201 H Calcium 8.7 Liver Function 03/15/17 Range/Units 05:19 Total Bilirubin 1.6 H (0.2-1.2) mg/dL AST 21 (5-34) Units/L ALT 11 (0-55) Units/L Alkaline Phosphatase 74 (38-126) Units/L Albumin 2.6 L (3.5-5.0) g/dL - ABG Interpretation ABG results: ABG ABG pH 7.47 pH Units (7.32-7.45) H 03/12/17 21:24 ABG pCO2 33 mmHg (35-45) L 03/12/17 21:24 ABG pO2 152 mmHg (85-104) H 03/12/17 21:24 ABG O2 Saturation 99 % (95-98) H 03/12/17 21:24 PT/INR, D-dimer PT 12.6 Seconds (9.4-12.1) H 03/12/17 22:21 - Impressions Impressions Chest X-Ray 03/14/17 18:39 IMPRESSION: Findings are overall most consistent with CHF with bilateral pleural effusions. Asymmetric airspace disease in the left lung base could represent atelectasis or concurrent pneumonia D/ / Tao Hawkins MD / Tao Hawkins MD Interpreting Provider: Tao Hawkins MD - VTE Documentation of Mechanical Device: Graduated compression elastic hosiery Consult Discharge Plan - Plan Referrals: Yissel Mclean MD [Primary Care Provider] -
[2017-03-15] MEDS ORDERED: Furosemide 20 MG/2 ML VIAL IVP ONE (14:12)
[2017-03-15 15:12] LABS: Hematocrit 31.1 % (35.3-44.9)
[2017-03-16 05:12] LABS: Basophils % 0.3 %; Eosinophils % 0.1 %; Hematocrit 29.2 % (35.3-44.9); Hemoglobin 9.4 g/dL (11.5-15.4); Immature Granulocytes % 0.5 % (0-4); Lymphocytes % 14.7 %; Mean Corpuscular HGB Conc 32.2 g/dL (31.6-35.5); Mean Corpuscular Hemoglobin 28.8 pg (28.0-33.3); Mean Corpuscular Volume 89.6 fL (83.0-100.0); Mean Platelet Volume 10.9 fL (9.4-12.4); Monocytes # 1.3 K/mcL (0.0-1.3); Monocytes % 9.5 %; Platelet Count 187 K/mcL (140-400); Red Blood Count 3.26 M/mcL (3.82-4.97); Segmented Neutrophils % 74.9 %
[2017-03-16 05:21] LABS: Albumin 2.3 g/dL (3.5-5.0); Albumin/Globulin Ratio 0.7 (1.1-2.2); Bilirubin,Total 1.7 mg/dL (0.2-1.2); Calcium 8.2 mg/dL (8.6-10.8); Globulin 3.4 g/dL (2.4-3.5); Total Protein 5.7 g/dL (6.0-8.3)
[2017-03-16 05:22] LABS: Potassium 4.1 mEq/L (3.5-4.5)
[2017-03-16 05:26] LABS: Neutrophils # 10.3 K/mcL (1.6-8.9)
[2017-03-16 05:28] LABS: Platelet Estimate Normal (Normal)
[2017-03-16] MEDS: Piperacillin/Tazobactam 3.375 GM in D5% in Water (Mini-Bag+) 100 ML IVPB SCH ×3 (07:32→23:59)
[2017-03-16] MEDS: Insulin LISPRO 300 UNITS/3 ML VIAL SQ SCH ×4 (07:37→21:17)
[2017-03-16] MEDS ORDERED: Iron Dextran Complex 100 MG in 0.9 % Sodium Chloride 500 ML IVPB SCH (12:45)
[2017-03-16] MEDS ORDERED: Ferumoxytol 510 MG in 0.9 % Sodium Chloride 100 ML IVPB ONE (13:15)
--- NOTE | 2017-03-16 13:47 | Internal Med Progress Note ---
Date of Encounter: 03/16/17 Time of Encounter: 13:51 - Assessment and plan (1) CAD (coronary artery disease) Current Visit: No Status: Acute Qualifiers: Coronary Disease-Associated Artery/Lesion type: [place] artery [place] vs. transplanted heart: [place] heart Associated angina: without angina Qualified Code(s): I25.10 - Atherosclerotic heart disease of [place] coronary artery without angina pectoris (2) DVT prophylaxis Current Visit: Yes Status: Acute Assessment and plan: Due to GI bleed she is on SCDs only (3) Diabetes mellitus Current Visit: Yes Status: Acute Assessment and plan: Accu-Chek 4 times a day with sliding scale coverage Lantus 15 units added Qualifiers: Diabetes mellitus type: type 2 Diabetes mellitus complication status: without complication Diabetes mellitus prison insulin use: with intermission coordinator use Qualified Code(s): E11.9 - Type 2 diabetes mellitus without complications ; Z79.4 - terminal make up operator (current) use of insulin (4) GI bleed Current Visit: Yes Status: Acute Assessment and plan: EGD done she will be on Protonix. Qualifiers: GI bleed type/associated pathology: melena Qualified Code(s): K92.1 - Melena (5) HTN (hypertension) Current Visit: Yes Status: Acute Qualifiers: Hypertension type: essential hypertension Qualified Code(s): I10 - Essential (primary) hypertension (6) Hx of deep venous thrombosis Current Visit: Yes Status: Acute - Subjective Interval history: Ms. Latonya Berrios is an 81-year-old female who has come in with GI bleed. Apparently she has history of coronary artery disease hypertension diabetes and recent DVT diagnosed in November 2016. Patient has been on a liquid's and it is not clear to me if she currently takes it not but in any case few weeks back she developed melanotic stool problem and was seen by Dr. israel for an EGD which could not be performed as there was no one to provide consent. Patient to return to the ER with abdominal pain and hemoglobin of 6. She plans to be transfused and her surgery has been consulted for possible EGD. And denies any chest pain however it was noted that last night she choke on food and there ended up having aspiration. Chest x-ray showed bilateral atelectasis and some pleural effusion. I will add IV Zosyn for now while she is already on Protonix. Her antiplatelets and to look for nerve VII on hold. We will check her hemoglobin every 6 hours CBC and CMP on regular basis and will continue to give her IV fluid gently. I would like to know if she had any recent echocardiogram to evaluate her cardiac status. 03/14 patient was seen this morning and she looked much better however in the afternoon she started looking exhausted coughing and developed low-grade temperature tachycardia. We are going to get a chest x-ray which is being ordered. Currently she is on Zosyn which provides survey August for which for aspiration pneumonia however if she develop white count of fever and we may add vancomycin to cover for hospital-acquired pneumonia. Hemoglobin is stable and is 9.7 this morning. She is iron deficient and might need some IV iron but vital due to fever I will avoid it. Her creatinine is slowly going up and now it is 1.6. 03/15 was still complaining of not feeling good however her examination is pretty unremarkable especially the abdominal examination. Yesterday we did a chest x-ray showed bilateral effusion more on the left and right pneumonia on the left and vascular congestion. I gave her Lasix 20 mg and I think that seemed to help her. I will repeat the same dose today. Her lab work essentially has improved showing normal white count hemoglobin is stable and renal function are improving however the bilirubin is 1.6 by rest of the LFTs are normal. I repeated tomorrow to see which direction they are going but if they worsen he can certainly lead to an ultrasound. 03/16 Lasix seems to be helping patient well. Need to take her Huffman off. I will keep on Lasix 20 mg daily. Lantus 15 units at it. Her total bilirubin is rising now to 1.7. Ultrasound liver ordered. Follow ultrasound - Constitutional Vitals: Temp Pulse Resp BP Pulse Ox 98.4 F 79 18 102/71 100 03/16/17 10:50 03/16/17 10:50 03/16/17 10:50 03/16/17 10:50 03/16/17 10:50 General appearance: Present: A&O X 3 - Head Head exam: Present: atraumatic, normocephalic - Eye Eye exam: Present: PERRL, conjuntiva pink, sclera anicteric Pupils: Present: PERRL - Neck Neck exam general surgery: Present: supple, trachea midline. Absent: lymphadenopathy - Respiratory Respiratory exam: Present: CTAB. Absent: accessory muscle use, rales, rhonchi, wheezes - Cardiovascular Cardiovascular exam: Present: RRR, +S1, +S2. Absent: diastolic murmur, gallop, rubs, systolic murmur - GI/Abdominal GI/Abdominal exam: Present: normal bowel sounds, soft, no peritoneal signs. Absent: distended, tenderness - Extremities Exam Extremities exam: Present: pedal edema, warm, radial pulses palpable and symetrical. Absent: calf tenderness, cyanotic - Neurological Exam Neurological exam: Present: CN II-XII intact, oriented X3, no focal deficits. Absent: pronater drift, facial droop, speech deficit - Skin Skin exam: Present: dry, intact Internal Medicine: Result - Labs CBC & Chem 7: 03/16/17 03:59 03/16/17 03:59 Labs: Short CBC 03/15/17 03/16/17 Range/Units 14:57 03:59 WBC 13.8 H (4.3-11.1) K/mcL Hgb 10.0 L 9.4 L (11.5-15.4) g/dL Hct 31.1 L 29.2 L (35.3-44.9) % Plt Count 187 (140-400) K/mcL Neutrophils # 10.3 H (1.6-8.9) K/mcL BMP 03/16/17 03:59 Sodium 134 L Potassium 4.1 Chloride 105 Carbon Dioxide 19 BUN 20 Creatinine 1.16 H Glucose 203 H Calcium 8.2 L Liver Function 03/16/17 Range/Units 03:59 Total Bilirubin 1.7 H (0.2-1.2) mg/dL AST 20 (5-34) Units/L ALT 10 (0-55) Units/L Alkaline Phosphatase 60 (38-126) Units/L Albumin 2.3 L (3.5-5.0) g/dL - ABG Interpretation ABG results: ABG ABG pH 7.47 pH Units (7.32-7.45) H 03/12/17 21:24 ABG pCO2 33 mmHg (35-45) L 03/12/17 21:24 ABG pO2 152 mmHg (85-104) H 03/12/17 21:24 ABG O2 Saturation 99 % (95-98) H 03/12/17 21:24 PT/INR, D-dimer PT 12.6 Seconds (9.4-12.1) H 03/12/17 22:21 - VTE Documentation of Mechanical Device: Graduated compression elastic hosiery Consult Discharge Plan - Plan Referrals: Yissel Mclean MD [Primary Care Provider] -
[2017-03-16] MEDS ORDERED: *HR* Midazolam HCl 2 MG/2 ML VIAL IVP PRN (15:35)
[2017-03-16] MEDS ORDERED: Simethicone 40 MG/0.6 ML MLS IR ONE (15:35)
[2017-03-16] MEDS ORDERED: *HR* FentaNYL (PF) 100 MCG/2 ML VIAL IVP PRN (15:35)
[2017-03-16] MEDS ORDERED: *HR* Midazolam HCl 5 MG/5 ML VIAL IVP ONE (15:36)
[2017-03-16] MEDS ORDERED: *HR* FentaNYL (PF) 100 MCG/2 ML VIAL ONE (15:37)
--- NOTE | 2017-03-16 15:39 | Pre-Sedation Evaluation ---
Pre-sedation evaluation - Pre-sedation checklist Date of procedure: 03/16/17 Procedure: Colonoscopy Recent Vitals: Last Vital Signs Temp 98.4 F 03/16/17 10:50 Pulse 79 03/16/17 10:50 Resp 18 03/16/17 10:50 BP 102/71 03/16/17 10:50 Pulse Ox 100 03/16/17 10:50 H&P (including ROS) documented in medical record: Yes Previous reaction to sedatives/anesthetics: No Dietary Status: NPO after Midnight Airway Assessment: Patient can open mouth completely, TMJ function normal Dentition: dentures removed Possible difficult airway: No ASA Classification *see protocol: CLASS II-Mild systemic disease
[2017-03-16] MEDS ORDERED: 0.9 % Sodium Chloride 1,000 ML IVC SCH (16:00)
--- NOTE | 2017-03-16 16:23 | Internal Med Progress Note ---
Date of Encounter: 03/16/17 Time of Encounter: 16:21 - Assessment and plan (1) Gastroparesis Current Visit: Yes Status: Chronic Assessment and plan: Looking back through the Notes in [facility]. 3 months ago seen in the GI office.. she had nausea. The possible Gastroparesis would explain this. Therefore she requires more frequent feedings, HOB elevated and Pureed diet. (2) AVM (arteriovenous malformation) of colon Current Visit: Yes Status: Acute Assessment and plan: This was small, no signs of recent bleeding and prob. a incidental finding. This was cauterized during colonoscopy. (3) Anemia Current Visit: Yes Status: Acute Assessment and plan: The etiology of this is elusive..do not have baseling HGB. There is no blood in her GI tract. Either one she bled from the small intestine, complicated by Eliquis OR she has iron Def. with another abnormality. Those labs I have ordered. I discussed this with the Hospitalist. Qualifiers: Anemia type: unspecified type Qualified Code(s): D64.9 - Anemia, unspecified - Constitutional Vitals: Temp Pulse Resp BP Pulse Ox 99.6 F 86 16 96/46 97 03/16/17 15:44 03/16/17 16:09 03/16/17 16:09 03/16/17 16:09 03/16/17 16:09 General appearance: Present: A&O X 3 Internal Medicine: Result - Labs CBC & Chem 7: 03/16/17 03:59 03/16/17 03:59 Labs: Short CBC 03/16/17 Range/Units 03:59 WBC 13.8 H (4.3-11.1) K/mcL Hgb 9.4 L (11.5-15.4) g/dL Hct 29.2 L (35.3-44.9) % Plt Count 187 (140-400) K/mcL Neutrophils # 10.3 H (1.6-8.9) K/mcL BMP 03/16/17 03:59 Sodium 134 L Potassium 4.1 Chloride 105 Carbon Dioxide 19 BUN 20 Creatinine 1.16 H Glucose 203 H Calcium 8.2 L Liver Function 03/16/17 Range/Units 03:59 Total Bilirubin 1.7 H (0.2-1.2) mg/dL AST 20 (5-34) Units/L ALT 10 (0-55) Units/L Alkaline Phosphatase 60 (38-126) Units/L Albumin 2.3 L (3.5-5.0) g/dL - ABG Interpretation ABG results: ABG ABG pH 7.47 pH Units (7.32-7.45) H 03/12/17 21:24 ABG pCO2 33 mmHg (35-45) L 03/12/17 21:24 ABG pO2 152 mmHg (85-104) H 03/12/17 21:24 ABG O2 Saturation 99 % (95-98) H 03/12/17 21:24 PT/INR, D-dimer PT 12.6 Seconds (9.4-12.1) H 03/12/17 22:21 - VTE Documentation of Mechanical Device: Graduated compression elastic hosiery Consult Discharge Plan - Plan Referrals: Yissel Mclean MD [Primary Care Provider] -
[2017-03-16] MEDS: VITAMIN A TP SCH ×2 (17:34→21:05)
[2017-03-16] MEDS: [UNRECOGNIZED DRUG - OTHER] TP SCH ×2 (17:34→21:05)
[2017-03-16] MEDS: Furosemide 20 MG TABLET PO SCH (17:34)
[2017-03-16 19:59] LABS: Folate 13.4 ng/mL (7.0-31.4)
[2017-03-16] MEDS: Insulin DETEMIR 100 UNIT/ML X5UNITS SQ SCH (21:17)
[2017-03-17 07:46] LABS: Basophils % 0.4 %; Eosinophils # 0.2 K/mcL (0.0-0.6); Eosinophils % 2.2 %; Hematocrit 25.1 % (35.3-44.9); Hemoglobin 8.1 g/dL (11.5-15.4); Immature Granulocytes % 0.4 % (0-4); Lymphocytes # 2.2 K/mcL (0.6-4.6); Lymphocytes % 23.2 %; Mean Corpuscular HGB Conc 32.3 g/dL (31.6-35.5); Mean Platelet Volume 10.4 fL (9.4-12.4); Monocytes # 0.8 K/mcL (0.0-1.3); Monocytes % 8.4 %; Neutrophils # 6.3 K/mcL (1.6-8.9); Platelet Count 216 K/mcL (140-400); Red Blood Count 2.79 M/mcL (3.82-4.97); Red Cell Distribution Width 13.8 % (11.5-14.5); Segmented Neutrophils % 65.4 %
[2017-03-17 08:02] LABS: Albumin 2.1 g/dL (3.5-5.0); Albumin/Globulin Ratio 0.6 (1.1-2.2); Calcium 8.5 mg/dL (8.6-10.8); Globulin 3.5 g/dL (2.4-3.5); Potassium 3.4 mEq/L (3.5-4.5); Total Protein 5.6 g/dL (6.0-8.3)
[2017-03-17] MEDS: Piperacillin/Tazobactam 3.375 GM in D5% in Water (Mini-Bag+) 100 ML IVPB SCH (08:58)
[2017-03-17] MEDS: [UNRECOGNIZED DRUG - OTHER] TP SCH ×3 (09:01→20:44)
[2017-03-17] MEDS: VITAMIN A TP SCH ×3 (09:01→20:44)
[2017-03-17] MEDS: Furosemide 20 MG TABLET PO SCH (09:02)
[2017-03-17] MEDS: Insulin LISPRO 300 UNITS/3 ML VIAL SQ SCH ×4 (09:08→20:32)
[2017-03-17] MEDS ORDERED: Ferumoxytol 510 MG in 0.9 % Sodium Chloride 100 ML IVPB ONE (12:15)
--- NOTE | 2017-03-17 15:42 | Internal Med Progress Note ---
Date of Encounter: 03/17/17 Time of Encounter: 15:36 - Assessment and plan (1) CAD (coronary artery disease) Current Visit: No Status: Acute Qualifiers: Coronary Disease-Associated Artery/Lesion type: [place] artery [place] vs. 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 Latonya Berrios is an 81-year-old female who has come in with GI bleed. Apparently she has history of coronary artery disease hypertension diabetes and recent DVT diagnosed in November 2016. Patient has been on a liquid's and it is not clear to me if she currently takes it not but in any case few weeks back she developed melanotic stool problem and was seen by Dr. israel for an EGD which could not be performed as there was no one to provide consent. Patient to return to the ER with abdominal pain and hemoglobin of 6. She plans to be transfused and her surgery has been consulted for possible EGD. And denies any chest pain however it was noted that last night she choke on food and there ended up having aspiration. Chest x-ray showed bilateral atelectasis and some pleural effusion. I will add IV Zosyn for now while she is already on Protonix. Her antiplatelets and to look for nerve VII on hold. We will check her hemoglobin every 6 hours CBC and CMP on regular basis and will continue to give her IV fluid gently. I would like to know if she had any recent echocardiogram to evaluate her cardiac status. 03/14 patient was seen this morning and she looked much better however in the afternoon she started looking exhausted coughing and developed low-grade temperature tachycardia. We are going to get a chest x-ray which is being ordered. Currently she is on Zosyn which provides survey Preet for which for aspiration pneumonia however if she develop white count of fever and we may add vancomycin to cover for hospital-acquired pneumonia. Hemoglobin is stable and is 9.7 this morning. She is iron deficient and might need some IV iron but vital due to fever I will avoid it. Her creatinine is slowly going up and now it is 1.6. 03/15 was still complaining of not feeling good however her examination is pretty unremarkable especially the abdominal examination. Yesterday we did a chest x-ray showed bilateral effusion more on the left and right pneumonia on the left and vascular congestion. I gave her Lasix 20 mg and I think that seemed to help her. I will repeat the same dose today. Her lab work essentially has improved showing normal white count hemoglobin is stable and renal function are improving however the bilirubin is 1.6 by rest of the LFTs are normal. I repeated tomorrow to see which direction they are going but if they worsen he can certainly lead to an ultrasound. 03/16 Lasix seems to be helping patient well. Need to take her Huffman off. I will keep on Lasix 20 mg daily. Lantus 15 units at it. Her total bilirubin is rising now to 1.7. Ultrasound liver ordered. Follow ultrasound 03/17 Ultrasound liver showed some fluid around the gallbladder. While we are waiting for further gastroenterology to give opinion HIDA scan can be scheduled. Discuss with Dr. Obrien yesterday. Patient will be off blood thinners and antiplatelets - Constitutional Vitals: Temp Pulse Resp BP Pulse Ox 98.2 F 77 18 132/66 95 03/17/17 11:44 03/17/17 11:44 03/17/17 11:44 03/17/17 11:44 03/17/17 11:44 General appearance: Present: A&O X 3 - Head Head exam: Present: atraumatic, normocephalic - Eye Eye exam: Present: PERRL, conjuntiva pink, sclera anicteric Pupils: Present: PERRL - Neck Neck exam general surgery: Present: supple, trachea midline. Absent: lymphadenopathy - Respiratory Respiratory exam: Present: CTAB. Absent: accessory muscle use, rales, rhonchi, wheezes - Cardiovascular Cardiovascular exam: Present: RRR, +S1, +S2. Absent: diastolic murmur, gallop, rubs, systolic murmur - GI/Abdominal GI/Abdominal exam: Present: normal bowel sounds, soft, no peritoneal signs. Absent: distended, tenderness - Extremities Exam Extremities exam: Present: pedal edema, warm, radial pulses palpable and symetrical. Absent: calf tenderness, cyanotic - Neurological Exam Neurological exam: Present: CN II-XII intact, oriented X3, no focal deficits. Absent: pronater drift, facial droop, speech deficit - Skin Skin exam: Present: dry, intact Internal Medicine: Result - Labs CBC & Chem 7: 03/17/17 06:20 03/17/17 06:20 Labs: Short CBC 03/17/17 Range/Units 06:20 WBC 9.6 (4.3-11.1) K/mcL Hgb 8.1 L (11.5-15.4) g/dL Hct 25.1 L (35.3-44.9) % Plt Count 216 (140-400) K/mcL Neutrophils # 6.3 (1.6-8.9) K/mcL BMP 03/17/17 06:20 Sodium 137 Potassium 3.4 L Chloride 106 Carbon Dioxide 25 BUN 20 Creatinine 1.27 H Glucose 70 Calcium 8.5 L Liver Function 03/17/17 Range/Units 06:20 Total Bilirubin 1.0 (0.2-1.2) mg/dL AST 14 (5-34) Units/L ALT 8 (0-55) Units/L Alkaline Phosphatase 58 (38-126) Units/L Albumin 2.1 L (3.5-5.0) g/dL - ABG Interpretation ABG results: ABG ABG pH 7.47 pH Units (7.32-7.45) H 03/12/17 21:24 ABG pCO2 33 mmHg (35-45) L 03/12/17 21:24 ABG pO2 152 mmHg (85-104) H 03/12/17 21:24 ABG O2 Saturation 99 % (95-98) H 03/12/17 21:24 PT/INR, D-dimer PT 12.6 Seconds (9.4-12.1) H 03/12/17 22:21 - Impressions Impressions Gallbladder Ultrasound 03/17/17 13:00 IMPRESSION: 1. Gallbladder is contracted and poorly visualized. This can be seen if the patient has not been fasting prior to exam. 2. Possible small amount of non-specific free fluid near the gallbladder fossa. 3. Suspected hepatic steatosis. 4. Right pleural effusion is incidentally noted. D/ / 03/17/2017 15:02:09 Omar Mata MD / christian Interpreting Provider: Omar Mata MD - VTE Documentation of Mechanical Device: Graduated compression elastic hosiery Consult Discharge Plan - Plan Referrals: Yissel Mclean MD [Primary Care Provider] -
[2017-03-18] MEDS: Insulin DETEMIR 100 UNIT/ML X5UNITS SQ SCH (00:11)
[2017-03-18 07:26] LABS: Basophils % 0.5 %; Eosinophils # 0.2 K/mcL (0.0-0.6); Eosinophils % 2.6 %; Hematocrit 27.3 % (35.3-44.9); Hemoglobin 8.7 g/dL (11.5-15.4); Immature Granulocytes % 0.4 % (0-4); Lymphocytes % 23.2 %; Mean Corpuscular HGB Conc 31.9 g/dL (31.6-35.5); Mean Corpuscular Hemoglobin 28.7 pg (28.0-33.3); Mean Corpuscular Volume 90.1 fL (83.0-100.0); Mean Platelet Volume 10.1 fL (9.4-12.4); Monocytes # 0.7 K/mcL (0.0-1.3); Monocytes % 8.3 %; Neutrophils # 5.5 K/mcL (1.6-8.9); Platelet Count 272 K/mcL (140-400); Red Blood Count 3.03 M/mcL (3.82-4.97); Red Cell Distribution Width 13.6 % (11.5-14.5)
[2017-03-18 07:56] LABS: Albumin 2.1 g/dL (3.5-5.0); Albumin/Globulin Ratio 0.5 (1.1-2.2); Bilirubin,Total 0.7 mg/dL (0.2-1.2); Calcium 8.6 mg/dL (8.6-10.8); Potassium 3.5 mEq/L (3.5-4.5); Total Protein 6.1 g/dL (6.0-8.3)
[2017-03-18] MEDS: Insulin LISPRO 300 UNITS/3 ML VIAL SQ SCH ×2 (09:52→12:24)
[2017-03-18] MEDS: Furosemide 20 MG TABLET PO SCH (09:52)
[2017-03-18] MEDS: [UNRECOGNIZED DRUG - OTHER] TP SCH (09:52)
[2017-03-18] MEDS: VITAMIN A TP SCH (09:52)
[2017-03-18 12:00] VITALS: BP 130/87
--- NOTE | 2017-03-18 13:48 | Discharge Summary ---
Date of Encounter: 03/18/17 Time of Encounter: 13:41 - Discharge Diagnosis (1) CAD (coronary artery disease) Priority: Secondary Status: Acute Qualifiers: Coronary Disease-Associated Artery/Lesion type: [place] artery [place] vs. transplanted heart: [place] heart Associated angina: without angina Qualified Code(s): I25.10 - Atherosclerotic heart disease of [place] coronary artery without angina pectoris (2) DVT prophylaxis Priority: Secondary Status: Acute (3) Diabetes mellitus Priority: Secondary Status: Acute Qualifiers: Diabetes mellitus type: type 2 Diabetes mellitus complication status: without complication Diabetes mellitus [place] insulin use: with prison use Qualified Code(s): E11.9 - Type 2 diabetes mellitus without complications ; Z79.4 - long term care pharmacist (current) use of insulin (4) GI bleed Priority: Primary Status: Acute Qualifiers: GI bleed type/associated pathology: melena Qualified Code(s): K92.1 - Melena (5) HTN (hypertension) Priority: Secondary Status: Acute Qualifiers: Hypertension type: essential hypertension Qualified Code(s): I10 - Essential (primary) hypertension (6) Hx of deep venous thrombosis Priority: Secondary Status: Acute (7) Congestive heart failure Priority: Secondary Status: Acute Qualifiers: Congestive heart failure type: unspecified congestive heart failure type Congestive heart failure chronicity: acute Qualified Code(s): I50.9 - Heart failure, unspecified - Discharge Medications Prescriptions: Amoxicillin/Clavulanate [Augmentin] 500 mg PO BIDWM #16 tablet Furosemide [Lasix] 20 mg PO DAILY #30 tablet Lisinopril 2.5 mg PO DAILY #30 tablet Omeprazole [PriLOSEC] 20 mg PO BID #60 capsule.dr Home Medications: ALPRAZolam [Xanax 0.5 MG Tablet] 0.5 mg PO TID PRN 03/12/17 [History] Acetaminophen [Tylenol] 650 mg PO Q4H PRN 03/12/17 [History] Glimepiride [Amaryl] 4 mg PO BID 03/12/17 [History] Insulin LISPRO [HumaLOG] 2 - 12 units SQ ACHS 03/12/17 [History] Metoprolol [Lopressor] 25 mg PO BID 03/12/17 [History] Ondansetron HCl [Zofran] 4 mg PO Q8H PRN 03/12/17 [History] OxyCODONE Immed Rel [Roxicodone 5 MG] 5 - 10 mg PO Q4HR PRN 03/12/17 [History] Sennosides/Docusate Sodium [Senna Plus] 1 each PO BID 03/12/17 [History] Amoxicillin/Clavulanate [Augmentin] 500 mg PO BIDWM #16 tablet 03/18/17 [Rx] Furosemide [Lasix] 20 mg PO DAILY #30 tablet 03/18/17 [Rx] Insulin Glargine [Lantus] 15 unit SQ QAM #0 03/18/17 [Rx] Lisinopril 2.5 mg PO DAILY #30 tablet 03/18/17 [Rx] Omeprazole [PriLOSEC] 20 mg PO BID #60 capsule. 03/18/17 [Rx] Allergies/Adverse Reactions: Allergies sulfamethoxazole [From Bactrim] Adverse Reaction (Verified 03/12/17 18:49) See Comments list from [facility] trimethoprim [From Bactrim] Adverse Reaction (Verified 03/12/17 18:49) See Comments list from [facility] Procedures/tests Complete & Pending: Procedures Performed prior 72 hours Category Date Time Status NM hepatobiliary [NM] Stat Exams 03/17/17 15:30 Completed US gall bladder [US] Stat Exams 03/17/17 13:00 Draft Date of admission: 03/13/17 00:07 Primary care physician: Yissel Mclean MD Discharging clinician: Marck Oh Anticipated date of discharge: 03/18/17 - Patient Status Disposition: Transfer SNF Condition: Fair Overall status at discharge: patient is back to baseline - Discharge Instructions Follow Up With: Yissel Mclean MD [Primary Care Provider] - - Diet and Activity Activity: as per physical therapy, resume usual activities as tolerated Diet: advance to your usual diet, diabetic diet, low fat, low cholesterol, low salt diet Hospital course: Ms. Sanchez is a 81 year old female who has come in with GI bleed. Apparently she has history of coronary artery disease hypertension diabetes and recent DVT diagnosed in November 2016. Patient has been on a Elliquis and it is not clear to me if she currently takes it or not but in any case few weeks back she developed melanotic stool problem and was seen by Dr. israel for an EGD which could not be performed as there was no one to provide consent. Patient to return to the ER with abdominal pain and hemoglobin of 6. She plans to be transfused and her surgery has been consulted for possible EGD. And denies any chest pain however it was noted that last night she choke on food and there ended up having aspiration. Swallowing evaluation recommended. puree Diet with thin liquids Chest x-ray showed bilateral atelectasis and some pleural effusion. She was treated with IV Zosyn repeat chest x-ray showed bilateral effusion more on the left and right pneumonia on the left and vascular congestion. She was given Lasix and she diuresed well. After diuresis her renal function improved. the bilirubin is 1.6 but rest of the LFTs are normal. Ultrasound liver was unremarkable. She had cholecystectomy in the past. I made the following adjustment in her home medication including taking her off elliquis and aspirin as I discuss it with Dr. Obrien , her family doctor and I added Lasix 20 mg daily and Lantus dose is increased 15 units . Her bilirubin has normalized. Further care and decision to restart antiplatelets and anticoagulation as per primary care physician Dr. Obrien. It is recommended that she should get an echocardiogram from Dr. Obrien office. I have already added low-dose lisinopril but her renal function needs to be followed. Current creatinine is 1.17 which is improving day by day. - Time Spent with Patient Total time spent providing and/or coordinating discharge services: Greater than 30 minutes - Constitutional Vitals: Temp Pulse Resp BP Pulse Ox 98.5 F 76 19 130/87 95 03/18/17 11:59 03/18/17 11:59 03/18/17 11:59 03/18/17 11:59 03/18/17 11:59 General appearance: Present: A&O X 3 - Head Head exam: Present: atraumatic, normocephalic - Eye Eye exam: Present: PERRL, conjuntiva pink, sclera anicteric Pupils: Present: PERRL - Neck Neck exam general surgery: Present: supple, trachea midline. Absent: lymphadenopathy - Respiratory Respiratory exam: Present: CTAB. Absent: accessory muscle use, rales, rhonchi, wheezes - Cardiovascular Cardiovascular exam: Present: RRR, +S1, +S2. Absent: diastolic murmur, gallop, rubs, systolic murmur - GI/Abdominal GI/Abdominal exam: Present: normal bowel sounds, soft, no peritoneal signs. Absent: distended, tenderness - Extremities Exam Extremities exam: Present: pedal edema, warm, radial pulses palpable and symetrical. Absent: calf tenderness, cyanotic - Neurological Exam Neurological exam: Present: CN II-XII intact, oriented X3, no focal deficits. Absent: pronater drift, facial droop, speech deficit - Skin Skin exam: Present: dry, intact - VTE Documentation of Mechanical Device: Graduated compression elastic hosiery
--- NOTE | 2017-03-18 14:07 | Physician Discharge Referral ---
ExtendedCare Referral Info Transfer To: f Provider in Charge: fallon Provider in Charge after Transfer: PCP Institutional Level of Care: Skilled - Diagnosis (1) CAD (coronary artery disease) Status: Acute (2) DVT prophylaxis Status: Acute (3) Diabetes mellitus Status: Acute (4) GI bleed Status: Acute (5) HTN (hypertension) Status: Acute (6) Hx of deep venous thrombosis Status: Acute (7) Congestive heart failure Status: Acute - Transfer Medications Prescriptions: Amoxicillin/Clavulanate [Augmentin] 500 mg PO BIDWM #16 tablet Furosemide [Lasix] 20 mg PO DAILY #30 tablet Lisinopril 2.5 mg PO DAILY #30 tablet Omeprazole [PriLOSEC] 20 mg PO BID #60 capsule. Home Medications: ALPRAZolam [Xanax 0.5 MG Tablet] 0.5 mg PO TID PRN 03/12/17 [History] Acetaminophen [Tylenol] 650 mg PO Q4H PRN 03/12/17 [History] Glimepiride [Amaryl] 4 mg PO BID 03/12/17 [History] Insulin LISPRO [HumaLOG] 2 - 12 units SQ ACHS 03/12/17 [History] Metoprolol [Lopressor] 25 mg PO BID 03/12/17 [History] Ondansetron HCl [Zofran] 4 mg PO Q8H PRN 03/12/17 [History] OxyCODONE Immed Rel [Roxicodone 5 MG] 5 - 10 mg PO Q4HR PRN 03/12/17 [History] Sennosides/Docusate Sodium [Senna Plus] 1 each PO BID 03/12/17 [History] Amoxicillin/Clavulanate [Augmentin] 500 mg PO BIDWM #16 tablet 03/18/17 [Rx] Furosemide [Lasix] 20 mg PO DAILY #30 tablet 03/18/17 [Rx] Insulin Glargine [Lantus] 15 unit SQ QAM #0 03/18/17 [Rx] Lisinopril 2.5 mg PO DAILY #30 tablet 03/18/17 [Rx] Omeprazole [PriLOSEC] 20 mg PO BID #60 capsule. 03/18/17 [Rx] Allergies/Adverse Reactions: Allergies sulfamethoxazole [From Bactrim] Adverse Reaction (Verified 03/12/17 18:49) See Comments list from [place] trimethoprim [From Bactrim] Adverse Reaction (Verified 03/12/17 18:49) See Comments list from [place] - Respiratory Orders Smoking Cessation: Smoking cessation has been advised. For more information, call the [place] Tobacco Quit Line at 7-440-CAZY-NOW. CERTIFICATION: I certify that the transfer of the above named patient to an Extended Care Facility is necessary for the continuing treatment of the diagnosis listed. The above information is true and accurate reflection of patient's current condition. Confidential - Redisclosure prohibited without a patient's written consent.
[2017-03-18] MEDS ORDERED: Amoxicillin/Clavulanate 500 MG TABLET PO SCH (17:00)
== END 2017-03-18 16:00 | DRG 377 ==
LOC: 3ANU 15:36 → EMEROO 15:36 → 3ANU 19:00
PROVIDERS: ADMIT Nurse Practitioner Acute Care; ATTEND Nurse Practitioner Family

== ENCOUNTER 2019-03-19 16:22 | Inpatient (IN) ==
--- NOTE | 2019-03-19 16:41 | Emergency Department Note ---
Disposition Clinical Impression: Altered mental status Disposition: Admitted As Inpatient Condition: Fair Time of Disposition: 22:05 General Adult HPI - General Chief complaint: ED Neuro Symptoms/Deficit Stated complaint: stroke like symptoms Time Seen by Provider: 03/19/19 16:28 Source: EMS Limitations: no limitations - History of Present Illness HPI Narrative: Ms. Madera is a 83-year-old female presented to the ED from [place] due to neurological deficit. Per EMS she was last seen well at 7 AM today at her nursing facility. EMS they have noticed speech dysarthria and weakness on left side although at admission to the ED she see appears to have a right-sided facial droop. In route her glucose was noted to be 300 received 5 units of insulin with known history of diabetes. In the ED she is unable to verbalize need for some time as she reports she is having difficulty speaking. She is not complaining of any symptoms. Is awake and alert but cannot verbalize her name or date of breath. She has no other complaint at this time. She does wince to deep palpation of her abdomen. Unsure of her baseline that she is unable to verbalize very much of the questionnaires. Pain Scale: 0 - Related Data Home Medications Medication Instructions Recorded Confirmed Acetaminophen [Tylenol] 650 mg PO Q4H PRN 03/12/17 03/19/19 Glimepiride [Amaryl] 4 mg PO BID 03/12/17 03/19/19 Insulin LISPRO [HumaLOG] 2 - 12 units SQ ACHS 03/12/17 03/19/19 Metoprolol [Lopressor] 25 mg PO BID 03/12/17 03/19/19 Acetaminophen [Tylenol 650mg SUPP] 650 mg RC Q4H PRN 03/19/19 03/19/19 Insulin Glargine [Lantus] 26 unit SQ QAM 03/19/19 03/19/19 Lidocaine HCl [Aspercreme] 1 gm TP Q6H PRN 03/19/19 03/19/19 Polyvinyl Alcohol [Artificial 1 drop OP BID PRN 03/19/19 03/19/19 Tears] Previous Rx's Medication Instructions Recorded Furosemide [Lasix] 20 mg PO DAILY #30 tablet 03/18/17 Lisinopril 2.5 mg PO DAILY #30 tablet 03/18/17 Omeprazole [PriLOSEC] 20 mg PO BID #60 capsule. 03/18/17 Allergies Allergy/AdvReac Type Severity Reaction Status Date / Time sulfamethoxazole AdvReac See Verified 03/12/17 18:49 [From Bactrim] Comments trimethoprim [From Bactrim] AdvReac See Verified 03/12/17 18:49 Comments All systems ED: reviewed and negative except as stated. Limitations: ROS unobtainable due to patients medical condition (Unable to obtain all the ROS due to her mental status) Constitutional: Denies: fever, chills, weakness Eyes: Denies: eye pain, eye discharge, vision change ENT ED: Denies: ear pain Cardiovascular: Denies: chest pain, palpitations, dyspnea on exertion Respiratory: Denies: cough, dyspnea, wheezes Gastrointestinal: Reports: abdominal pain (Her pelvic region). Denies: nausea, vomiting Genitourinary: Denies: urgency, dysuria Integumentary: Denies: rash, abrasion Neurological: Reports: other (Difficulty speaking). Denies: headache Past Medical History - Past Medical History Medical history: Reports: coronary artery disease, diabetes, hypertension, other Surgical history: Reports: cholecystectomy, hysterectomy, knee replacement Psychiatric history: Reports: no psych history - Social History Smoking Status: Never smoker Smokeless Tobacco Status: No Alcohol use: Reports: none Drug use: Reports: none Physical Exam - General Limitations: no limitations General appearance: alert, in no apparent distress - Head Head exam: atraumatic, normocephalic - Eye Eye exam: Present: normal appearance, EOMI. Absent: scleral icterus - ENT ENT exam: normal exam, normal oropharynx, mucous membranes moist - Neck Neck exam: Present: normal inspection, full ROM, trachea midline - Chest Chest inspection: Present: normal inspection, symmetric chest wall rise. Absent: tenderness - Respiratory Respiratory exam: Present: normal lung sounds bilaterally. Absent: respiratory distress, wheezes - Cardiovascular Cardiovascular exam: Present: regular rate, normal rhythm, +S1, +S2 - Extremities Exam Extremities exam: Present: normal inspection. Absent: tenderness, pedal edema - Neurological Exam Neurological exam: Present: alert, other (Dysarthria and right facial droop). Absent: oriented X3 (Cannot verbalize orientation), CN II-XII intact (Extraocular movement nonintact ) - Skin Skin exam: Present: warm, dry, intact Course Vital Signs Temperature 98.1 F 03/19/19 16:24 Pulse Rate 76 03/19/19 16:24 Respiratory Rate 18 03/19/19 16:24 Blood Pressure 174/149 03/19/19 16:24 O2 Sat by Pulse Oximetry 100 03/19/19 16:24 Temperature 97.9 F 03/19/19 22:00 Pulse Rate 76 03/19/19 22:00 Respiratory Rate 15 03/19/19 22:00 Blood Pressure 153/62 03/19/19 22:00 O2 Sat by Pulse Oximetry 98 03/19/19 22:00 Oxygen Delivery Oxygen Delivery Room Air Medical Decision Making - MDM Narrative Medical decision making narrative: Ms. Madera is 83-year-old female presented from [facility] due to new neurological findings. Per EMS they had reported she had left-sided body weakness and difficulty speaking. She was last seen well at 7 AM. Unknown of her baseline but according to EMS her speech was intact yesterday when she was last seen well. Stroke alert was called. She underwent CT of the head which did not show any acute abnormalities. Spoke with Dr. Hendrix over the phone from [place] [facility] and he reported not seeing any acute abnormalities. CTA of the head and neck were also ordered no acute intracranial abnormalities were noted there were findings of nodularities in her lung. Analysis has been ordered due to changes in her mentation. Would benefit from MRI. Spoke with the admitting hospitalist and she would be admitted to observation unit further workup on her mentation. - Lab Data Lab results reviewed: Yes I reviewed the patient's lab results. Result diagrams: 03/19/19 16:34 03/19/19 16:34 Lab Results 03/19/19 03/19/19 03/19/19 Range/Units 16:34 16:34 16:34 WBC 8.3 (4.3-11.1) K/mcL RBC 3.67 L (3.82-4.97) M/mcL Hgb 11.5 (11.5-15.4) g/dL Hct 36.1 (35.3-44.9) % MCV 98.4 (83.0-100.0) fL MCH 31.3 (28.0-33.3) pg MCHC 31.9 (31.6-35.5) g/dL RDW 12.5 (11.5-14.5) % Plt Count 230 (140-400) K/mcL MPV 10.0 (9.4-12.4) fL PT 10.7 (9.4-12.1) Seconds INR 0.9 APTT 36.5 H (26.0-36.0) Seconds Sodium 140 (136-145) mEq/L Potassium 4.6 (3.5-5.1) mEq/L Chloride 104 (98-107) mEq/L Carbon Dioxide 26 (23-29) mEq/L BUN 28 H (8-23) mg/dL Creatinine 1.44 H (0.60-1.20) mg/dL Est GFR ( Amer) 42 L (> 60) Est GFR (Non-Af Amer) 35 L (> 60) BUN/Creatinine Ratio 19 (6-26) Glucose 269 H (70-105) mg/dL Calculated Osmolality 305 H (280-300) Calcium 9.3 (8.6-10.3) mg/dL Troponin I < 0.03 (< 0.04) ng/mL - Radiology Data Radiology results reviewed: Yes I reviewed the patient's radiology results. Attestation Statement - Attestation Attestation: I, Tony Elizabeth, examined this patient and my medical decision-making was reviewed with the [employer]/PA/Advanced Practice Nurse/Resident Physician. I agree with the documented findings, disposition and treatment plan as described except to the extent set forth below. 83-year-old female presents emergency Department with concerns of dysarthria. Patient was noted to have left upper and left lower extremity weakness by the senior care facility intermittently since 7 AM this morning. On her physical exam she does have dysarthria which she states is not her baseline she also has a right lower facial droop. There is a mild right pronator drift on my exam. Stroke alert was called after the initial evaluation. CT does not show evidence of intracranial hemorrhage. [facility] agreed that she is not a candidate for TPA. CTA of the head and neck were negative negative for obvious abnormality. She will be admitted to hospitalist for further care and evaluation. She was given aspirin at the senior care facility prior to arrival.
[2019-03-19] MEDS ORDERED: Isovue-370 500 ML BOTTLE IVP ONE (16:51)
[2019-03-19 16:55] LABS: Hematocrit 36.1 % (35.3-44.9); Hemoglobin 11.5 g/dL (11.5-15.4); Mean Corpuscular HGB Conc 31.9 g/dL (31.6-35.5); Mean Corpuscular Hemoglobin 31.3 pg (28.0-33.3); Mean Corpuscular Volume 98.4 fL (83.0-100.0); Platelet Count 230 K/mcL (140-400); Red Blood Count 3.67 M/mcL (3.82-4.97); Red Cell Distribution Width 12.5 % (11.5-14.5); White Blood Count 8.3 K/mcL (4.3-11.1)
[2019-03-19 17:03] LABS: INR 0.9; Prothrombin Time 10.7 Seconds (9.4-12.1)
[2019-03-19 17:06] LABS: Activated Partial Thrombo Time 36.5 Seconds (26.0-36.0)
[2019-03-19 17:15] LABS: BUN/Creatinine Ratio 19 (6-26); Blood Urea Nitrogen 28 mg/dL (8-23); Calcium 9.3 mg/dL (8.6-10.3); Carbon Dioxide 26 mEq/L (23-29); Chloride 104 mEq/L (98-107); Glucose 269 mg/dL (70-105); Osmolality,Calculated 305 (280-300); Potassium 4.6 mEq/L (3.5-5.1); Sodium 140 mEq/L (136-145); Troponin I < 0.03 ng/mL (< 0.04); eGFR For African Americans 42 (> 60); eGFR For Non-African Americans 35 (> 60)
[2019-03-19] MEDS ORDERED: *HR* LORazepam 2 MG/ML VIAL IVP ONE (18:52)
[2019-03-19] MEDS ORDERED: *HR* Dextrose 50 % in Water (Syg) 50 ML SYRINGE IVP PRN (20:29)
[2019-03-19] MEDS ORDERED: D5% in Water 1,000 ML IVC PRN (20:29)
[2019-03-19] MEDS ORDERED: Dextrose Gel 15 GM/37.5 ML TUBE PO PRN ×2 (20:29)
--- NOTE | 2019-03-19 20:32 | Internal Med History&Physical ---
Date of Encounter: 03/19/19 Time of Encounter: 20:30 Internal Medicine - H&P: HPI Chief complaint: Stroke like Sx History of present illness: Ms. Sanchez is a 83 year old female with past medical history of coronary artery disease hypertension, dementia, diabetes, and DVT who presented from [facility] due to concern for strokelike symptoms. Information o btained from medical records patient is a poor historian and has significant dysarthria on current presentation. Per EMS patient was last seen well at 7 AM earlier today. Reports of dysarthria and weakness on the left side reported. Stroke alert was called shortly after arrival. Workup including CT of the head and CTA of the head and neck was unremarkable for any acute findings. Laboratory workup was also relatively benign aside for mild elevation in patient's creatinine. UA is still pending but patient has leukocytosis or fever. On arrival patient was hypertensive with a blood pressure 174.149. On my assessment patient had a significant dysarthria and right-sided facial paresis and so I was unable to understand what she was saying. Patient was able to follow commands. Patient will be admitted for CVA workup. Patient is a DNR CCA DNI. Past Med Surg Social Fam HX - Past Medical History Medical history: coronary artery disease, diabetes, hypertension, other Additional medical history: Anemia Psychiatric history: no psych history - Past Surgical History Surgical History: cholecystectomy, hysterectomy, knee replacement Additional surgical history: knee - Social History Smoking Status: Never smoker Smokeless Tobacco Status: No Alcohol use: none Drug use: none Internal Medicine - H&P: Meds Acetaminophen [Tylenol] 650 mg PO Q4H PRN 03/12/17 [History] Glimepiride [Amaryl] 4 mg PO BID 03/12/17 [History] Insulin LISPRO [HumaLOG] 2 - 12 units SQ ACHS 03/12/17 [History] Metoprolol [Lopressor] 25 mg PO BID 03/12/17 [History] Furosemide [Lasix] 20 mg PO DAILY #30 tablet 03/18/17 [Rx] Lisinopril 2.5 mg PO DAILY #30 tablet 03/18/17 [Rx] Omeprazole [PriLOSEC] 20 mg PO BID #60 capsule. 03/18/17 [Rx] Acetaminophen [Tylenol 650mg SUPP] 650 mg RC Q4H PRN 03/19/19 [History] Insulin Glargine [Lantus] 26 unit SQ QAM 03/19/19 [History] Lidocaine HCl [Aspercreme] 1 gm TP Q6H PRN 03/19/19 [History] Polyvinyl Alcohol [Artificial Tears] 1 drop OP BID PRN 03/19/19 [History] Allergy/AdvReac Type Severity Reaction Status Date / Time sulfamethoxazole AdvReac See Verified 03/12/17 18:49 [From Bactrim] Comments trimethoprim [From Bactrim] AdvReac See Verified 03/12/17 18:49 Comments All Systems PM: A 10-system review of systems was performed and is negative for pertinent findings except as documented above in the HPI. - Constitutional Constitutional: no chills, no fever(s), no night sweats - EENT Eyes: no change in vision, no discharge, no pain, no photophobia Ears: no ear discharge, no ear pain, no tinnitus Nose, mouth and throat: no dysphagia, no nasal discharge, no neck pain, no sore throat - Cardiovascular Cardiovascular ROS IM: no chest pain, no diaphoresis, no dyspnea, no lightheadedness, no palpitations, no syncope - Respiratory Respiratory: no cough, no dyspnea, no wheezing, no excessive phlegm production - Gastrointestinal Gastrointestinal: no abdominal pain, no diarrhea, no hematemesis, no hematoche uriel, no melena, no nausea, no vomiting - Genitourinary Genitourinary: no change in urinary stream, no dysuria, no flank pain, no hematuria - Musculoskeletal Musculoskeletal ROS IM: no numbness, no tingling - Integumentary Integumentary IM: no rash, no unusual bruising - Neurological Neurological ROS: no confusion, no convulsions, no focal weakness, no numbness, no tingling, no tremor(s) - Hematologic/Lymphatic Hematologic/Lymphatic: no easy bruising - Constitutional Vitals: Temp Pulse Resp BP Pulse Ox 98.1 F 78 17 169/74 99 03/19/19 16:24 03/19/19 18:00 03/19/19 20:14 03/19/19 20:14 03/19/19 18:00 Exam: General: Alert and oriented 1 however unable to assess person or place due to dysarthria Skin:Normal color, no rash, no lesions. HEENT:EOM, pupils equal, round and reactive. Cardiovascular:Normal S1 & S2, no rubs, murmurs or gallops. No JVD. Pulse regular. Lungs:Normal breath sounds, no wheezes or crackles. Abdomen:Soft, non-tender, no rigidity. Extremities:No deformity, no edema or tenderness, no joint swelling or clubbing. Neurological: Patient able to follow commands. Pupils sluggish to react. Right-sided facial paresis. Remainder of cranial nerves intact. Sensation intact. Muscle strength in the upper extremities 5 out of 5 bilaterally. Muscle strength lower extremities 4 out of 5 bilaterally. No dysmetria Pulses:Carotid and radial pulses normal +2. Rest of the physical exam is non contributory Internal Med - H&P Results - Labs CBC & Chem 7: 03/20/19 00:50 03/20/19 00:50 Labs: Short CBC 03/19/19 Range/Units 16:34 WBC 8.3 (4.3-11.1) K/mcL Hgb 11.5 (11.5-15.4) g/dL Hct 36.1 (35.3-44.9) % Plt Count 230 (140-400) K/mcL BMP 03/19/19 16:34 Sodium 140 Potassium 4.6 Chloride 104 Carbon Dioxide 26 BUN 28 H Creatinine 1.44 H Glucose 269 H Calcium 9.3 Cardiac Enzymes 03/19/19 Range/Units 16:34 Troponin I < 0.03 (< 0.04) ng/mL - Impressions ITS Impressions Chest X-Ray 03/19/19 16:29 IMPRESSION: No acute cardiopulmonary disease. D/ / Kristi Kate MD / Kristi Kate MD Interpreting Provider: Kristi Kate MD Head CT 03/19/19 16:29 IMPRESSION: No findings diagnostic of an acute infarct Small prior infarcts are suggested in the cerebellum Mild small vessel ischemic changes in the white matter. Critical results were called by Dr. Willian Villanueva to Patricia Moffett on 03/19/2019 at 16:56. D/ / Willian Villanueva / Willian Villanueva Interpreting Provider: Willian Villanueva Head CTA 03/19/19 16:51 IMPRESSION: No focal significant arterial narrowing in the neck No focal significant arterial narrowing in the head Low-density and high density small thyroid lesions are likely benign. No follow-up imaging is recommended Small upper lung zone nodules as described. RECOMMENDATIONS: Fleischner Society guidelines for follow-up and management of incidentally detected pulmonary nodules: Multiple Solid Nodules: Nodule size less than 6 mm In a low-risk patient, no routine follow-up. In a high-risk patient, optional CT at 12 months. Nodule size equals 6-8 mm In a low-risk patient, CT at 3-6 months, then consider CT at 18-24 months. In a high-risk patient, CT at 3-6 months, then CT at 18-24 months. Nodule size greater than 8 mm In a low-risk patient, CT at 3-6 months, then consider CT at 18-24 months. In a high-risk patient, CT at 3-6 months, then CT at 18-24 months. - Low risk patients include individuals with minimal or absent history of smoking and other known risk factors. - High risk patients include individuals with a history or smoking or known risk factors. Radiology 2017 http://pubs.rsna.org/doi/full/10.1148/radiol.5457699034 D/ / Willian Villanueva / Willian Villanueva Interpreting Provider: Willian Villanueva Neck CTA 03/19/19 16:51 IMPRESSION: No focal significant arterial narrowing in the neck No focal significant arterial narrowing in the head Low-density and high density small thyroid lesions are likely benign. No follow-up imaging is recommended Small upper lung zone nodules as described. RECOMMENDATIONS: Fleischner Society guidelines for follow-up and management of incidentally detected pulmonary nodules: Multiple Solid Nodules: Nodule size less than 6 mm In a low-risk patient, no routine follow-up. In a high-risk patient, optional CT at 12 months. Nodule size equals 6-8 mm In a low-risk patient, CT at 3-6 months, then consider CT at 18-24 months. In a high-risk patient, CT at 3-6 months, then CT at 18-24 months. Nodule size greater than 8 mm In a low-risk patient, CT at 3-6 months, then consider CT at 18-24 months. In a high-risk patient, CT at 3-6 months, then CT at 18-24 months. - Low risk patients include individuals with minimal or absent history of smoking and other known risk factors. - High risk patients include individuals with a history or smoking or known risk factors. Radiology 2017 http://pubs.rsna.org/doi/full/10.1148/radiol.[email or web address] D/ / Willian Villanueva / Willian Villanueva Interpreting Provider: Willian Villanueva - Assessment and Plan (1) CVA (cerebral vascular accident) Current Visit: Yes Status: Acute Assessment and plan: 83-year-old female with a past medical history of diabetes and hypertension presenting from longterm with stroke like symptoms concerning for CVA. Noted to have significant dysarthria and right-sided facial paresis. Baseline according to longterm is a patient with is able to speak normally. Pupils were sluggish to react to light. Reports of pronator drift appreciated in the ED was not noted. No evidence of unilateral weakness. Laboratory workup notable for hyperglycemia and mild acute kidney injury. CT of the head showing nothing of acute however small prior infarcts are suggested in the cerebellum as well as mild small vessel ischemic changes in the white matter. CTA of the he ad/neck showing no focal significant arterial narrowing. -Telemetry -Hold antihypertensives to allow for permissive hypertension -Neurochecks -Bedside swallow evaluation to follow -Obtain echo and carotid duplex in the morning -PT/OT consult -MRI without contrast in the morning -Neurology consult Qualifiers: CVA mechanism: unspecified Qualified Code(s): I63.9 - Cerebral infarction, unspecified (2) CAD (coronary artery disease) Current Visit: No Status: Acute Assessment and plan: History of coronary artery disease. -Hold evening dose of metoprolol and resume after 24 hours. Continue with statin patient able to take by mouth. Qualifiers: Coronary Disease-Associated Artery/Lesion type: [place] artery [place] vs. transplanted heart: [place] heart Associated angina: angina presence unspecified Qualified Code(s): I25.10 - Atherosclerotic heart disease of [place] coronary artery without angina pectoris (3) Congestive heart failure Current Visit: No Status: Acute Assessment and plan: History of congestive heart failure documented in patient's PMH. Patient does not appear to be volume overloaded at this time. -Monitor I's and O's; daily weights -We will hold tonight's Lasix due to mild elevation in patient's creatinine. -Follow up echocardiogram Qualifiers: Heart failure chronicity: unspecified Qualified Code(s): I50.9 - Heart failure, unspecified (4) Diabetes mellitus Current Visit: No Status: Acute Assessment and plan: History of type 2 diabetes. Blood glucose found to be 269 on admission. -Start patient on sliding scale plus basal insulin and monitor every 6 hours. Goal blood glucose 140-180. Qualifiers: Qualified Code(s): E11.9 - Type 2 diabetes mellitus without complications (5) HTN (hypertension) Current Visit: No Status: Acute Assessment and plan: Blood pressure on arrival 174/149. - Hold antihypertensives to allow for permissive hypertension. Qualifiers: Hypertension type: essential hypertension Qualified Code(s): I10 - Essential (primary) hypertension (6) Acute kidney injury Current Visit: Yes Status: Acute Assessment and plan: Patient found to have a creatinine of 1.44 and GFR 35 in the setting of what appears to be stage III chronic kidney disease. Baseline creatinine appears to be closer to 1.2. -We will start patient on gentle hydration and reassess kidney function. -We will hold dose of Lasix today if she is not artery taken it. (7) DVT prophylaxis Current Visit: No Status: Acute Assessment and plan: Subcutaneous heparin - Time Spent With Patient Total time spent is greater than 50% in coordination of care (as documented) at patient's floor/unit and/or counseling patient:
[2019-03-19] MEDS ORDERED: 0.9 % Sodium Chloride 1,000 ML IVC SCH (20:45)
[2019-03-19] MEDS: *HR* Heparin 5,000 UNIT/ML VIAL SQ SCH (22:39)
[2019-03-19] MEDS ORDERED: Acetaminophen 650 MG RECTAL SUPP RC PRN (22:49)
[2019-03-19] MEDS ORDERED: Trolamine Salicylate/Aloe Vera 35.4 GM TUBE TP PRN (22:49)
[2019-03-19] MEDS ORDERED: Acetaminophen 325 MG TABLET PO PRN (22:49)
[2019-03-20] MEDS: Insulin LISPRO 300 UNITS/3 ML VIAL SQ SCH ×4 (00:06→18:46)
[2019-03-20 01:39] LABS: Hematocrit 32.4 % (35.3-44.9); Hemoglobin 10.4 g/dL (11.5-15.4); Mean Corpuscular HGB Conc 32.1 g/dL (31.6-35.5); Mean Corpuscular Hemoglobin 31.2 pg (28.0-33.3); Mean Corpuscular Volume 97.3 fL (83.0-100.0); Mean Platelet Volume 10.3 fL (9.4-12.4); Platelet Count 213 K/mcL (140-400); Red Blood Count 3.33 M/mcL (3.82-4.97); Red Cell Distribution Width 12.5 % (11.5-14.5); White Blood Count 7.1 K/mcL (4.3-11.1)
[2019-03-20 01:52] LABS: Prothrombin Time 11.2 Seconds (9.4-12.1)
[2019-03-20 01:56] LABS: Alanine Aminotransferase 16 Units/L (7-52); Albumin 3.4 g/dL (3.5-5.7); Albumin/Globulin Ratio 1.1 (1.1-2.2); Alkaline Phosphatase 69 Units/L (34-104); Aspartate Amino Transferase 14 Units/L (13-39); BUN/Creatinine Ratio 20 (6-26); Bilirubin,Total 0.5 mg/dL (0.3-1.0); Blood Urea Nitrogen 25 mg/dL (8-23); Calcium 8.9 mg/dL (8.6-10.3); Carbon Dioxide 27 mEq/L (23-29); Chloride 108 mEq/L (98-107); Chol/HDL Ratio 3.3 (0-4.9); Cholesterol 147 mg/dL (< 200); Glucose 66 mg/dL (70-105); HDL Cholesterol 44 mg/dL (40-59); LDL Cholesterol,Calculated 79 mg/dL (0-99); Osmolality,Calculated 295 (280-300); Potassium 4.1 mEq/L (3.5-5.1); Sodium 141 mEq/L (136-145); Total Protein 6.4 g/dL (6.4-8.9); Triglycerides 121 mg/dL (< 150); Troponin I < 0.03 ng/mL (< 0.04); eGFR For African Americans 51 (> 60); eGFR For Non-African Americans 42 (> 60)
[2019-03-20] MEDS: Artificial Tears SOLN 15 ML BOTTLE OP PRN ×2 (02:39→10:02)
[2019-03-20 02:44] LABS: Estimated Average Glucose 194 mg/dl
[2019-03-20] MEDS: *HR* Heparin 5,000 UNIT/ML VIAL SQ SCH ×3 (05:06→20:39)
--- NOTE | 2019-03-20 08:59 | Internal Med Progress Note ---
Hospitalist Progress Note - Encounter Date of Encounter: 03/20/19 Time of Encounter: 08:59 - Subjective Interval History: Recent was seen and examined at bedside. Patient still exhibiting dysarthria she also has right sided facial droop discussed results of CAT scan awaiting neurology's recommendations - Exam Vitals: Temp Pulse Resp BP Pulse Ox 98.2 F 77 16 158/69 99 03/20/19 07:05 03/20/19 07:05 03/20/19 07:05 03/20/19 07:05 03/20/19 07:05 Exam: General: Alert and oriented 1 however unable to assess person or place due to dysarthria Skin:Normal color, no rash, no lesions. HEENT:EOM, pupils equal, round and reactive. Cardiovascular:Normal S1 & S2, no rubs, murmurs or gallops. No JVD. Pulse regular. Lungs:Normal breath sounds, no wheezes or crackles. Abdomen:Soft, non-tender, no rigidity. Extremities:No deformity, no edema or tenderness, no joint swelling or clubbing. Neurological: Patient able to follow commands. Pupils sluggish to react. Right-sided facial paresis. Remainder of cranial nerves intact. Sensation intact. Muscle strength in the upper extremities 5 out of 5 bilaterally. Muscle strength lower extremities 4 out of 5 bilaterally. No dysmetria Pulses:Carotid and radial pulses normal +2. Rest of the physical exam is non contributory - Assessment and Plan (1) CVA (cerebral vascular accident) Current Visit: Yes Status: Acute Assessment and Plan: 83-year-old female with a past medical history of diabetes and hypertension presenting from [facility] with stroke like symptoms concerning for CVA. Noted to have significant dysarthria and right-sided facial paresis. Baseline according to detention is a patient with is able to speak normally. Pupils were sluggish to react to light. Reports of pronator drift appreciated in the ED was not noted. No evidence of unilateral weakness. Laboratory workup notable for hyperglycemia and mild acute kidney injury. CT of the head showing nothing of acute however small prior infarcts are suggested in the cerebellum as well as mild small vessel ischemic changes in the white matter. CTA of the head/neck showing no focal significant arterial narrowing. -Telemetry -Hold antihypertensives to allow for permissive hypertension -Neurochecks -Bedside swallow evaluation completed -Obtain echo and carotid duplex pending -PT/OT consult -MRI without contrast i-pending -Neurology consult -Continue with aspirin and statin Check lipid profile (2) CAD (coronary artery disease) Current Visit: No Status: Acute Assessment and Plan: History of coronary artery disease. -Hold evening dose of metoprolol and resume after 24 hours. Continue with statin patient able to take by mouth. (3) Diabetes mellitus Current Visit: No Status: Acute Assessment and Plan: History of type 2 diabetes. Blood glucose found to be 269 on admission. -Start patient on sliding scale plus basal insulin and monitor before meals at bedtime Goal blood glucose 140-180. (4) HTN (hypertension) Current Visit: No Status: Acute Assessment and Plan: Blood pressure on arrival 174/149. - Hold antihypertensives to allow for permissive hypertension. (5) DVT prophylaxis Current Visit: No Status: Acute Assessment and Plan: Subcutaneous heparin (6) Congestive heart failure Current Visit: No Status: Acute Assessment and Plan: History of congestive heart failure documented in patient's PMH. Patient does not appear to be volume overloaded at this time. -Monitor I's and O's; daily weights -We will hold tonight's Lasix due to mild elevation in patient's creatinine. Creatinine at baseline -Follow up echocardiogram which is pending at this time (7) Acute kidney injury Current Visit: Yes Status: Acute Assessment and Plan: Patient found to have a creatinine of 1.44 and GFR 35 in the setting of what appears to be stage III chronic kidney disease. Baseline creatinine appears to be closer to 1.2. -We will start patient on gentle hydration and reassess kidney function. -We will hold dose of Lasix today if she is not artery taken it. 03/20 Patient has seemed to return to baseline Continue to monitor closely (8) Conjunctivitis Current Visit: Yes Status: Acute Assessment and Plan: Patient has been experiencing matting of eyes bilaterally as well as slight redness we will place on Cipro eyedrops - Time Spent with Patient Total time spent is greater than 50% in coordination of care (as documented) at patient's floor/unit and/or counseling patient: Internal Medicine: Result - Labs CBC & Chem 7: 03/20/19 00:50 03/20/19 00:50 Labs: Short CBC 03/19/19 03/20/19 Range/Units 16:34 00:50 WBC 8.3 7.1 (4.3-11.1) K/mcL Hgb 11.5 10.4 L (11.5-15.4) g/dL Hct 36.1 32.4 L (35.3-44.9) % Plt Count 230 213 (140-400) K/mcL BMP 03/19/19 03/20/19 16:34 00:50 Sodium 140 141 Potassium 4.6 4.1 Chloride 104 108 H Carbon Dioxide 26 27 BUN 28 H 25 H Creatinine 1.44 H 1.22 H Glucose 269 H 66 L Calcium 9.3 8.9 Cardiac Enzymes 03/19/19 03/20/19 Range/Units 16:34 00:50 Troponin I < 0.03 < 0.03 (< 0.04) ng/mL Liver Function 03/20/19 Range/Units 00:50 Total Bilirubin 0.5 (0.3-1.0) mg/dL AST 14 (13-39) Units/L ALT 16 (7-52) Units/L Alkaline Phosphatase 69 (34-104) Units/L Albumin 3.4 L (3.5-5.7) g/dL - ABG Interpretation ABG results: PT/INR, D-dimer PT 11.2 Seconds (9.4-12.1) 03/20/19 00:50 - Impressions Impressions Chest X-Ray 03/19/19 16:29 IMPRESSION: No acute cardiopulmonary disease. D/ / Kristi Kate MD / Kristi Kate MD Interpreting Provider: Kristi Kate MD Head CT 03/19/19 16:29 IMPRESSION: No findings diagnostic of an acute infarct Small prior infarcts are suggested in the cerebellum Mild small vessel ischemic changes in the white matter. Critical results were called by Dr. Willian Villanueva to Patricia Moffett on 03/19/2019 at 16:56. D/ / Willian Villanueva / Willian Villanueva Interpreting Provider: Willian Villanueva Head CTA 03/19/19 16:51 IMPRESSION: No focal significant arterial narrowing in the neck No focal significant arterial narrowing in the head Low-density and high density small thyroid lesions are likely benign. No follow-up imaging is recommended Small upper lung zone nodules as described. RECOMMENDATIONS: Fleischner Society guidelines for follow-up and management of incidentally detected pulmonary nodules: Multiple Solid Nodules: Nodule size less than 6 mm In a low-risk patient, no routine follow-up. In a high-risk patient, optional CT at 12 months. Nodule size equals 6-8 mm In a low-risk patient, CT at 3-6 months, then consider CT at 18-24 months. In a high-risk patient, CT at 3-6 months, then CT at 18-24 months. Nodule size greater than 8 mm In a low-risk patient, CT at 3-6 months, then consider CT at 18-24 months. In a high-risk patient, CT at 3-6 months, then CT at 18-24 months. - Low risk patients include individuals with minimal or absent history of smoking and other known risk factors. - High risk patients include individuals with a history or smoking or known risk factors. Radiology 2017 http://pubs.rsna.org/doi/full/10.1148/radiol.[email or web address] D/ / Willian Villanueva / Willian Villanueva Interpreting Provider: Willian Villanueva Neck CTA 03/19/19 16:51 IMPRESSION: No focal significant arterial narrowing in the neck No focal significant arterial narrowing in the head Low-density and high density small thyroid lesions are likely benign. No follow-up imaging is recommended Small upper lung zone nodules as described. RECOMMENDATIONS: Fleischner Society guidelines for follow-up and management of incidentally detected pulmonary nodules: Multiple Solid Nodules: Nodule size less than 6 mm In a low-risk patient, no routine follow-up. In a high-risk patient, optional CT at 12 months. Nodule size equals 6-8 mm In a low-risk patient, CT at 3-6 months, then consider CT at 18-24 months. In a high-risk patient, CT at 3-6 months, then CT at 18-24 months. Nodule size greater than 8 mm In a low-risk patient, CT at 3-6 months, then consider CT at 18-24 months. In a high-risk patient, CT at 3-6 months, then CT at 18-24 months. - Low risk patients include individuals with minimal or absent history of smoking and other known risk factors. - High risk patients include individuals with a history or smoking or known risk factors. Radiology 2017 http://pubs.rsna.org/doi/full/10.1148/radiol.1470809166 D/ / Willian Villanueva / Willian Villanueva Interpreting Provider: Willian Villanueva Consult Discharge Plan - Plan Referrals: Yissel Mclean MD [Primary Care Provider] - (1) CVA (cerebral vascular accident) Qualifiers: CVA mechanism: unspecified Qualified Code(s): I63.9 - Cerebral infarction, unspecified (2) CAD (coronary artery disease) Qualifiers: (3) Diabetes mellitus Qualifiers: (4) HTN (hypertension) Qualifiers: (8) Conjunctivitis Qualifiers: Conjunctivitis type: unspecified Laterality: bilateral Qualified Code(s): H10.9 - Unspecified conjunctivitis
--- NOTE | 2019-03-20 16:17 | Neurology - Consult Note ---
Date of Encounter: 03/20/19 Time of Encounter: 16:14 Assessment and Plan (1) CVA (cerebral vascular accident) Current Visit: Yes Status: Acute I presume that this patient is experiencing evidence of acute injury involving the left cerebral hemisphere. Likely ischemic stroke. CT scan of the head revealed no evidence of hemorrhage, mass effect or edema or neoplasm. She does have stroke risk factors. However CTA scan of the head and neck were negative. I am not certain why this patient had not previously been on aspirin but it seems that she is on aspirin 81 mg currently. Stroke workup is still pending which includes echocardiogram, carotid Doppler study as well as MRI scan of the brain. Maintain aspirin currently along with statin therapy and antihypertensives. Patient will also likely need a speech and swallow evaluation further recommendations will be made pending the outcome of tests and how she evolves during her hospital stay. Qualifiers: CVA mechanism: unspecified Qualified Code(s): I63.9 - Cerebral infarction, unspecified History of Present Illness HPI: The chart was reviewed, the patient was seen and examined. Ms. Sanchez is a 83 year old female who is being seen for neurologic consultation at the request of the hospitalist secondary to concern of dysarthria and weakness. Patient arrived here from the [facility] secondary to strokelike symptoms. I the patient has significant dysarthria and is really unable to give her own medical account. According to the medical record past medical history is positive for hypertension, diabetes mellitus, coronary artery disease and dementia. She is able to follow commands however. Her blood pressure has been labile since admission being elevated as high as 188/80. CTA scans of the head and neck were negative for evidence of any occlusive lesions. MRI scan of the brain at this time is yet pending. CT scan of the brain reveals significant cortical atrophy along with questionable small infarct in the right cerebellar hemisphere. Past Med Surg Social Fam HX - Past Medical History Medical history: coronary artery disease, diabetes, hypertension, other Additional medical history: Anemia Psychiatric history: no psych history - Past Surgical History Surgical History: cholecystectomy, hysterectomy, knee replacement Additional surgical history: knee - Social History Smoking Status: Never smoker Smokeless Tobacco Status: No Alcohol use: none Drug use: none Medications and Allergies Acetaminophen [Tylenol] 650 mg PO Q4H PRN 03/12/17 [History] Glimepiride [Amaryl] 4 mg PO BID 03/12/17 [History] Insulin LISPRO [HumaLOG] 2 - 12 units SQ ACHS 03/12/17 [History] Metoprolol [Lopressor] 25 mg PO BID 03/12/17 [History] Furosemide [Lasix] 20 mg PO DAILY #30 tablet 03/18/17 [Rx] Lisinopril 2.5 mg PO DAILY #30 tablet 03/18/17 [Rx] Omeprazole [PriLOSEC] 20 mg PO BID #60 capsule. 03/18/17 [Rx] Acetaminophen [Tylenol 650mg SUPP] 650 mg RC Q4H PRN 03/19/19 [History] Insulin Glargine [Lantus] 26 unit SQ QAM 03/19/19 [History] Lidocaine HCl [Aspercreme] 1 gm TP Q6H PRN 03/19/19 [History] Polyvinyl Alcohol [Artificial Tears] 1 drop OP BID PRN 03/19/19 [History] Allergy/AdvReac Type Severity Reaction Status Date / Time sulfamethoxazole AdvReac See Verified 03/12/17 18:49 [From Bactrim] Comments trimethoprim [From Bactrim] AdvReac See Verified 03/12/17 18:49 Comments ROS unobtainable: other (Speech is extremely dysarthric.) All Systems: The remainder of the systems were reviewed and are negative Physical Examination - Vital Signs Vital Signs: Initial Vital Signs Temp Pulse Resp BP Pulse Ox 98.1 F 76 18 174/149 100 03/19/19 16:24 03/19/19 16:24 03/19/19 16:24 03/19/19 16:24 03/19/19 16:24 - Exam Exam: General Examination: *CONSTITUTIONAL: normal *GENERAL APPEARANCE OF PATIENT appears healthy and well groomed *EYES: pupils equal, round, reactive to light and accommodation, conjunctiva clear without masses or ulcerations, fundi normal. *CARDIOVASCULAR no peripheral edema, distal temperature normal, dorsalis pedis pulses normal. Refer to vital signs Musculoskeletal: *GAIT AND STATION -not assessed *ASSESSMENT OF MUSCLE STRENGTH IN THE UPPER AND LOWER EXTREMITIES patient does have 4/5 strength of the right upper extremity along muscles. She has normal strength of the left upper extremity. She appears to have normal strength of both lower extremities in all muscle groups. *MUSCLE TONE IN THE UPPER AND LOWER EXTREMITIES normal. No abnormal movements, fasciculations or atrophy identified. Neurological: *ORIENTATION to place *RECURRENT AND REMOTE MEMORY both seem to be impaired. *ATTENTION AND CONCENTRATION are impaired. Patient is somnolent. However arouses to voice. *LANGUAGE FUNCTION patient speech is severely dysarthric. Apparently this is new. She is able to follow commands however. *FUND OF KNOWLEDGE difficult to assess due to dysarthria *MENTAL attention span is diminished as she is somnolent however is arousable. *CN II optic fundi were normal, no papilledema noted. *CN III,IV, PERRLA extraocular eye movements were full, no nystagmus and no ptosis noted. *CN V shows normal sensation and jaw opens symmetrically. *CN VII shows significant right facial droop. *CN VIII shows no significant hearing loss on examination in the office. *CN IX,,X palate elevated symmetrically and normal gag reflex was noted. *CN XI normal strength in the sternocleidomastoid muscles, symmetrical shoulder shrugging. *CN XII tongue protruded in the midline, with normal strength and movement. *SENSORY EXAMINATION difficult to assess in the patient with significant dysarthria. *REFLEXES: deep tendon reflexes were normal and symmetrical , grade 1/4 diffusely, Achilles reflexes are absent symmetrically *CEREBELLAR TESTING not assessed Results - Laboratory Findings CBC and BMP: 03/20/19 00:50 03/20/19 00:50 Abnormal lab findings: Abnormal lab results RBC 3.33 M/mcL (3.82-4.97) L 03/20/19 00:50 Hgb 10.4 g/dL (11.5-15.4) L 03/20/19 00:50 Hct 32.4 % (35.3-44.9) L 03/20/19 00:50 APTT 36.5 Seconds (26.0-36.0) H 03/19/19 16:34 Chloride 108 mEq/L (98-107) H 03/20/19 00:50 BUN 25 mg/dL (8-23) H 03/20/19 00:50 1.22 mg/dL (0.60-1.20) H 03/20/19 00:50 Est GFR ( Amer) 51 (> 60) L 03/20/19 00:50 Est GFR (Non-Af Amer) 42 (> 60) L 03/20/19 00:50 Glucose 66 mg/dL (70-105) L 03/20/19 00:50 POC Glucose 260 mg/dL (70-99) H 03/19/19 16:24 8.4 % (-5.6) H 03/20/19 00:50 305 (280-300) H 03/19/19 16:34 3.4 g/dL (3.5-5.7) L 03/20/19 00:50 Consult Discharge Plan - Plan Referrals: Yissel Mclean MD [Primary Care Provider] -
[2019-03-20] MEDS: Ciprofloxacin HCL Soln 5 ML BOTTLE LEFT EYE SCH ×3 (16:55→23:59)
[2019-03-20] MEDS: Ciprofloxacin HCL Soln 5 ML BOTTLE RIGHT EYE SCH ×3 (16:55→23:59)
[2019-03-20 22:40] LABS: Bilirubin,Urine Negative (Negative); Blood,Urine Trace (Negative); Clarity,Urine Cloudy (Clear); Color,Urine Yellow (Yellow); Glucose,Urine (UA) Normal (Normal); Ketones,Urine Negative (Negative); Leukocyte Esterase,Urine Large (Negative); Nitrite,Urine Positive (Negative); PH,Urine 5.5 pH Units (5.0-8.0); Protein,Urine 100 mg/dL (Neg-Trace); Specific Gravity,Urine 1.012 (1.010-1.025); Urobilinogen,Urine Normal (Normal)
[2019-03-20 22:43] LABS: WBC,Urine TNTC per hpf (0-3)
[2019-03-20 22:44] LABS: Bacteria,Urine Present per hpf (None-Few)
[2019-03-21] MEDS: Insulin LISPRO 300 UNITS/3 ML VIAL SQ SCH ×4 (00:02→18:48)
[2019-03-21 01:56] LABS: Basophils % 0.6 %; Eosinophils # 0.3 K/mcL (0.0-0.6); Eosinophils % 3.8 %; Hematocrit 32.8 % (35.3-44.9); Hemoglobin 10.5 g/dL (11.5-15.4); Immature Granulocytes % 0.1 % (0-4); Lymphocytes # 2.9 K/mcL (0.6-4.6); Lymphocytes % 40.7 %; Mean Corpuscular Hemoglobin 31.3 pg (28.0-33.3); Mean Corpuscular Volume 97.9 fL (83.0-100.0); Monocytes # 0.6 K/mcL (0.0-1.3); Monocytes % 8.4 %; Neutrophils # 3.3 K/mcL (1.6-8.9); Platelet Count 207 K/mcL (140-400); Red Blood Count 3.35 M/mcL (3.82-4.97); Red Cell Distribution Width 12.6 % (11.5-14.5); Segmented Neutrophils % 46.4 %; White Blood Count 7.2 K/mcL (4.3-11.1)
[2019-03-21 02:18] LABS: Potassium 4.7 mEq/L (3.5-5.1)
[2019-03-21] MEDS: Ciprofloxacin HCL Soln 5 ML BOTTLE RIGHT EYE SCH ×6 (03:11→21:49)
[2019-03-21] MEDS: Ciprofloxacin HCL Soln 5 ML BOTTLE LEFT EYE SCH ×6 (03:11→21:49)
[2019-03-21] MEDS: *HR* Heparin 5,000 UNIT/ML VIAL SQ SCH ×3 (05:07→21:50)
--- NOTE | 2019-03-21 08:47 | Internal Med Progress Note ---
Hospitalist Progress Note - Encounter Date of Encounter: 03/22/19 Time of Encounter: 08:47 - Subjective Interval History: Recent was seen and examined at bedside continues to experience dysarthria attempts to follow commands and attempts to answer questions - Exam Vitals: Temp Pulse Resp BP Pulse Ox 97.9 F 78 16 168/63 98 03/21/19 07:03 03/21/19 07:03 03/21/19 07:03 03/21/19 07:03 03/21/19 07:03 Exam: General: Alert and oriented 1 however unable to assess person or place due to dysarthria Skin:Normal color, no rash, no lesions. HEENT:EOM, pupils equal, round and reactive. Cardiovascular:Normal S1 & S2, no rubs, murmurs or gallops. No JVD. Pulse regular. Lungs:Normal breath sounds, no wheezes or crackles. Abdomen:Soft, non-tender, no rigidity. Extremities:No deformity, no edema or tenderness, no joint swelling or clubbing. Neurological: Patient able to follow commands. Pupils sluggish to react. Right-sided facial paresis. Remainder of cranial nerves intact. Sensation intact. Muscle strength in the upper extremities 5 out of 5 bilaterally. Mus cindy strength lower extremities 4 out of 5 bilaterally. No dysmetria Pulses:Carotid and radial pulses normal +2. Rest of the physical exam is non contributory - Assessment and Plan (1) CAD (coronary artery disease) Current Visit: No Status: Acute Assessment and Plan: History of coronary artery disease. - Continue with statin patient able to take by mouth (2) Diabetes mellitus Current Visit: No Status: Acute Assessment and Plan: History of type 2 diabetes. -Start patient on sliding scale plus basal insulin and monitor every 6 hours. Goal blood glucose 140-180. (3) HTN (hypertension) Current Visit: No Status: Acute Assessment and Plan: Blood pressure on arrival 174/149. - Hold antihypertensives to allow for permissive hypertension. (4) DVT prophylaxis Current Visit: No Status: Acute Assessment and Plan: Subcutaneous heparin (5) Congestive heart failure Current Visit: No Status: Acute Assessment and Plan: History of congestive heart failure documented in patient's PMH. Patient does not appear to be volume overloaded at this time. -Monitor I's and O's; daily weights -Continue monitor creatinine -Follow up echocardiogram (6) CVA (cerebral vascular accident) Current Visit: Yes Status: Acute Assessment and Plan: 83-year-old female with a past medical history of diabetes and hypertension [facility] concerning for CVA. Noted to have significant dysarthria and right-sided facial paresis. Baseline according to [facility] is a patient with is able to speak normally. Pupils were sluggish to react to light. Reports of pronator drift appreciated in the ED was not noted. No evidence of unilateral weakness. Laboratory workup nota ble for hyperglycemia and mild acute kidney injury. CT of the head showing nothing of acute however small prior infarcts are suggested in the cerebellum as well as mild small vessel ischemic changes in the white matter. CTA of the head/neck showing no focal significant arterial narrowing. -Telemetry -Hold antihypertensives to allow for permissive hypertension -Neurochecks -Bedside swallow evaluation to follow -Obtain echo and carotid duplex in the morning -PT/OT consult -MRI -Neurology consult (7) Acute kidney injury Current Visit: Yes Status: Acute Assessment and Plan: Patient found to have a creatinine of 1.44 and GFR 35 in the setting of what appears to be stage III chronic kidney disease. Baseline creatinine appears to be closer to 1.2. This has improved after receiving IV fluids We will continue to monitor closely Avoid nephrotoxins - Time Spent with Patient Total time spent is greater than 50% in coordination of care (as documented) at patient's floor/unit and/or counseling patient: Internal Medicine: Result - Labs CBC & Chem 7: 03/21/19 01:35 03/22/19 12:25 Labs: Short CBC 03/21/19 Range/Units 01:35 WBC 7.2 (4.3-11.1) K/mcL Hgb 10.5 L (11.5-15.4) g/dL Hct 32.8 L (35.3-44.9) % Plt Count 207 (140-400) K/mcL Neutrophils # 3.3 (1.6-8.9) K/mcL BMP 03/21/19 01:35 Sodium 142 Potassium 4.7 Chloride 110 H Carbon Dioxide 26 BUN 20 Creatinine 1.16 Glucose 147 H Calcium 9.0 Urine 03/20/19 Range/Units 22:12 Urine Color Yellow (Yellow) Urine Clarity Cloudy A (Clear) Urine pH 5.5 (5.0-8.0) pH Units Ur Specific [place] 1.012 (1.010-1.025) Urine Protein 100 H (Neg-Trace) mg/dL Urine Glucose (UA) Normal (Normal) mg/dL - ABG Interpretation ABG results: PT/INR, D-dimer PT 11.2 Seconds (9.4-12.1) 03/20/19 00:50 - Impressions Impressions Brain MRI 03/19/19 20:21 IMPRESSION: Scattered small acute infarctions in the posterior left frontal lobe, in the left MCA territory. Tiny old infarctions in the bilateral cerebellar hemispheres. Tiny old lacunar infarcts in the bilateral periventricular white matter. Mild parenchymal volume loss. Mild chronic microvascular disease. The results were reported to nurse practitioner Ely Joy at 6:21 p.m. on March 20, 2019. D/ / Daron Wyatt MD / Daron Wyatt MD Interpreting Provider: Daron Wyatt MD Consult Discharge Plan - Plan Referrals: Yissel Mclean MD [Primary Care Provider] - (Physician will see patient when she returns to facility. ) ___ (1) CAD (coronary artery disease) Qualifiers: Coronary Disease-Associated Artery/Lesion type: [place] artery [place] vs. transplanted heart: [place] heart Associated angina: angina presence unspecified Qualified Code(s): I25.10 - Atherosclerotic heart disease of [place] coronary artery without angina pectoris (2) Diabetes mellitus Qualifiers: Diabetes mellitus type: type 2 Diabetes mellitus fpc insulin use: with fpc use Diabetes mellitus complication status: without complication Qualified Code(s): E11.9 - Type 2 diabetes mellitus without complications; Z79.4 - longterm (current) use of insulin (3) HTN (hypertension) Qualifiers: Hypertension type: essential hypertension Qualified Code(s): I10 - Essential (primary) hypertension (5) Congestive heart failure Qualifiers: Heart failure chronicity: unspecified Qualified Code(s): I50.9 - Heart failure, unspecified (6) CVA (cerebral vascular accident) Qualifiers: CVA mechanism: unspecified Qualified Code(s): I63.9 - Cerebral infarction, unspecified
[2019-03-21] MEDS: Aspirin 81 MG TAB.CHEW PO SCH (10:23)
--- NOTE | 2019-03-21 13:46 | Neurology Progress Note ---
<Yobany Hogan J - Last Filed: 03/21/19 13:40> Date of Encounter: 03/21/19 Time of Encounter: 13:40 Assessment and Plan (1) CVA (cerebral vascular accident) Current Visit: Yes Status: Acute Presented with severe dysarthria and right arm weakness CT head negative for acute infarct Risk for stroke with h/o age, obesity, CAD, HTN, DM Given risk factors and deficits on exam a full stroke workup was implemented CT angiogram of the head and neck showed no significant narrowing in the head or neck MRI of the brain reveals scattered small acute infarctions in the posterior left frontal lobe and the left MCA territory. Tiny old infarcts in the bilateral cerebellar hemispheres, tiny old lacunar infarcts and bilateral periventricular white matter and chronic microvascular disease. MRI findings are concerning for embolic etiology No h/o A-fib, heart RRR on exam She continues to have severe dysarthria on exam today otherwise no new focal neurological deficits were found PLAN: Echocardiogram pending; Consider BRENDA pending results of TTE Patient was aspirin naive previously, continue 81 mg ASA daily continue with statin medications given concerns for embolic etiology I suspect that she will likely need anticoagulation however, the rest of the workup is pending continue with neurological assessments per protocol She will need aggressive risk factor modification recommend PT/OT consultation, as well as social services counselor consultation Speech therapy seeing in consultation; barium swallow study pending Okay to resume antihypertensive meds Continue with medical and supportive care Neurology will continue to follow Qualifiers: CVA mechanism: unspecified Qualified Code(s): I63.9 - Cerebral infarction, unspecified Subjective Principal diagnosis: acute CVA Interval history: In brief, Ms. Sanchez is an 83 F who presented with severe dysarthria and right arm weakness. She has a confirmed acute CVA on MRI imaging. She remains stable overnight but continues to be severely dysarthric, her RUE weakness is improving but persists nonetheless. I discussed the MRI findings with the patient and discussed the plan of care. Her only concerns today are in regards to her missing dentures. Objective - Constitutional Vitals: Temp Pulse Resp BP Pulse Ox 98.2 F 85 16 182/82 97 03/21/19 11:59 03/21/19 11:59 03/21/19 11:59 03/21/19 11:59 03/21/19 11:59 Exam: General Examination: *CONSTITUTIONAL: normal *GENERAL APPEARANCE OF PATIENT Generally ill obese female *EYES: pupils equal, round, reactive to light and accommodation, conjunctiva clear without masses or ulcerations, fundi normal. *CARDIOVASCULAR no peripheral edema, distal temperature normal, dorsalis pedis pulses normal. See vital signs Musculoskeletal: *GAIT AND STATION deferred d/t chronic b/l leg weakness; wheelchair dependant at baseline *ASSESSMENT OF MUSCLE STRENGTH IN THE UPPER AND LOWER EXTREMITIES Right deltoid, bicep, tricep and multilith operator strength 4/5, left deltoid, bicep, tricep and multilith operator strength. She appears to have 3/5 strength of both lower extremities in all muscle groups. *MUSCLE TONE IN THE UPPER AND LOWER EXTREMITIES normal. No abnormal movements, fasciculations or atrophy identified. Neurological: *ORIENTATION to place *RECURRENT AND REMOTE MEMORY both seem to be impaired. *ATTENTION AND CONCENTRATION abnormal and she is requiring redirection *LANGUAGE FUNCTION speech remains severely dysarthric which is acute with new CVA. She is able to follow commands however and does not appear to have expressive aphsia *FUND OF KNOWLEDGE severely dysarthric and unable to assess *MENTAL unable to maintain attention without prompting and redirection; baseline unclear *CN II optic fundi were normal, no papilledema noted. *CN III,IV, PERRLA extraocular eye movements were full, no nystagmus and no ptosis noted. *CN V shows normal sensation and jaw opens symmetrically. *CN VII continues to have significant right facial droop. *CN VIII shows no significant hearing loss on examination in the office. *CN IX,,X palate elevated symmetrically and normal gag reflex was noted. *CN XI normal strength in the sternocleidomastoid muscles, symmetrical shoulder shrugging. *CN XII tongue protruded in the midline, with normal strength and movement. *SENSORY EXAMINATION difficult to assess in the patient with significant dysarthria. *REFLEXES: deep tendon reflexes were normal and symmetrical , grade 1/4 diffusely, Achilles reflexes are absent symmetrically *CEREBELLAR TESTING not assessed Results - Laboratory Findings CBC and BMP: 03/21/19 01:35 03/21/19 01:35 Abnormal lab findings: Abnormal lab results RBC 3.35 M/mcL (3.82-4.97) L 03/21/19 01:35 Hgb 10.5 g/dL (11.5-15.4) L 03/21/19 01:35 Hct 32.8 % (35.3-44.9) L 03/21/19 01:35 APTT 36.5 Seconds (26.0-36.0) H 03/19/19 16:34 Chloride 110 mEq/L (98-107) H 03/21/19 01:35 BUN 25 mg/dL (8-23) H 03/20/19 00:50 1.22 mg/dL (0.60-1.20) H 03/20/19 00:50 Est GFR ( Amer) 54 (> 60) L 03/21/19 01:35 Est GFR (Non-Af Amer) 44 (> 60) L 03/21/19 01:35 Glucose 147 mg/dL (70-105) H 03/21/19 01:35 POC Glucose 108 mg/dL (70-99) H 03/21/19 05:58 8.4 % (-5.6) H 03/20/19 00:50 305 (280-300) H 03/19/19 16:34 3.4 g/dL (3.5-5.7) L 03/20/19 00:50 Cloudy (Clear) A 03/20/19 22:12 100 mg/dL (Neg-Trace) H 03/20/19 22:12 Trace (Negative) H 03/20/19 22:12 Positive (Negative) A 03/20/19 22:12 Ur Leukocyte Esterase Large (Negative) H 03/20/19 22:12 TNTC per hpf (0-3) H 03/20/19 22:12 Ur Culture Indicated? YES (NO) A 03/20/19 22:12 - Diagnostic Findings Additional findings: MR/MR head/brain wo con IMPRESSION: Scattered small acute infarctions in the posterior left frontal lobe, in the left MCA territory. Tiny old infarctions in the bilateral cerebellar hemispheres. Tiny old lacunar infarcts in the bilateral periventricular white matter. Mild parenchymal volume loss. Mild chronic microvascular disease. Consult Discharge Plan - Plan Referrals: Yissel Mclean MD [Primary Care Provider] - (Physician will see patient when she returns to facility. ) <Sumeet Rivero - Last Filed: 03/21/19 19:43> Date of Encounter: 03/21/19 Assessment and Plan (1) CVA (cerebral vascular accident) Current Visit: Yes Status: Acute I have personally performed a [id number] assessment of the patient and have reviewed the PA/STRAW HAT BRIM CUTTER OPERATOR note. My impressions are as follows: I agree with the assessment and plan as documented above by the ARMHOLE BASTER HAND. Possibility of an embolic event is high on the differential. Further recommendations will be made pending the outcome of the echocardiogram. Qualifiers: CVA mechanism: unspecified Qualified Code(s): I63.9 - Cerebral infarction, unspecified Subjective Interval history: Chart was reviewed, patient was seen and examined independently. Case was discussed with the ARMHOLE BASTER HAND. I agree with his assessment as stated above. Patient unfortunately has complete expressive aphasia. However, she is able to follow commands and is able to write. MRI scan did reveal several scattered acute infarcts in the territory of the left middle cerebral artery one is notably in the region of Broca's area. Objective - Constitutional Vitals: Temp Pulse Resp BP Pulse Ox 98.6 F 83 16 179/75 96 03/21/19 15:09 03/21/19 15:09 03/21/19 15:09 03/21/19 15:09 03/21/19 15:09 Exam: I have personally performed a [id number] assessment of the patient and have reviewed the PA/STRAW HAT BRIM CUTTER OPERATOR note. My impressions are as follows: I have performed a complete neurologic examination. I agree with the documentation of the neurologic examination as stated above. Results - Laboratory Findings CBC and BMP: 03/21/19 01:35 03/21/19 01:35 Abnormal lab findings: Abnormal lab results RBC 3.35 M/mcL (3.82-4.97) L 03/21/19 01:35 Hgb 10.5 g/dL (11.5-15.4) L 03/21/19 01:35 Hct 32.8 % (35.3-44.9) L 03/21/19 01:35 APTT 36.5 Seconds (26.0-36.0) H 03/19/19 16:34 Chloride 110 mEq/L (98-107) H 03/21/19 01:35 BUN 25 mg/dL (8-23) H 03/20/19 00:50 1.22 mg/dL (0.60-1.20) H 03/20/19 00:50 Est GFR ( Amer) 54 (> 60) L 03/21/19 01:35 Est GFR (Non-Af Amer) 44 (> 60) L 03/21/19 01:35 Glucose 147 mg/dL (70-105) H 03/21/19 01:35 POC Glucose 130 mg/dL (70-99) H 03/21/19 16:28 8.4 % (-5.6) H 03/20/19 00:50 305 (280-300) H 03/19/19 16:34 3.4 g/dL (3.5-5.7) L 03/20/19 00:50 Cloudy (Clear) A 03/20/19 22:12 100 mg/dL (Neg-Trace) H 03/20/19 22:12 Trace (Negative) H 03/20/19 22:12 Positive (Negative) A 03/20/19 22:12 Ur Leukocyte Esterase Large (Negative) H 03/20/19 22:12 TNTC per hpf (0-3) H 03/20/19 22:12 Ur Culture Indicated? YES (NO) A 03/20/19 22:12
[2019-03-21] MEDS ORDERED: Perflutren Lipid Microsphere 1.3 ML in 0.9 % Sodium Chloride 8.7 ML IVP ONE (14:59)
[2019-03-22] MEDS: Ciprofloxacin HCL Soln 5 ML BOTTLE LEFT EYE SCH ×6 (00:27→20:56)
[2019-03-22] MEDS: Ciprofloxacin HCL Soln 5 ML BOTTLE RIGHT EYE SCH ×6 (00:27→20:58)
[2019-03-22] MEDS: *HR* Heparin 5,000 UNIT/ML VIAL SQ SCH ×3 (05:40→21:00)
[2019-03-22] MEDS ORDERED: Insulin LISPRO 300 UNITS/3 ML VIAL SQ SCH (07:30)
[2019-03-22] MEDS: Aspirin 81 MG TAB.CHEW PO SCH (08:29)
[2019-03-22] MEDS: Insulin LISPRO 300 UNITS/3 ML VIAL SQ SCH ×5 (08:30→20:59)
--- NOTE | 2019-03-22 09:27 | Internal Med Progress Note ---
Hospitalist Progress Note - Encounter Date of Encounter: 03/22/19 Time of Encounter: 09:27 - Subjective Interval History: Patient was seen and examined at bedside. Patient demonstrates some frustration due to her inability to talk. Encouraged patient to participate with physical therapy as well as speech therapy. - Exam Vitals: Temp Pulse Resp BP Pulse Ox 98.6 F 97 16 135/80 96 03/22/19 08:05 03/22/19 08:05 03/22/19 08:05 03/22/19 08:05 03/22/19 08:05 Exam: General: Alert and oriented 1 however unable to assess person or place due to dysarthria Skin:Normal color, no rash, no lesions. HEENT:EOM, pupils equal, round and reactive. Cardiovascular:Normal S1 & S2, no rubs, murmurs or gallops. No JVD. Pulse regular. Lungs:Normal breath sounds, no wheezes or crackles. Abdomen:Soft, non-tender, no rigidity. Extremities:No deformity, no edema or tenderness, no joint swelling or clubbing. Neurological: Patient able to follow commands. Pupils sluggish to react. Right-sided facial paresis. Remainder of cranial nerves intact. Sensation intact. Muscle strength in the upper extremities 5 out of 5 bilaterally. Muscle strength lower extremities 4 out of 5 bilaterally. No dysmetria Pulses:Carotid and radial pulses normal +2. Rest of the physical exam is non contributory - Assessment and Plan (1) CAD (coronary artery disease) Current Visit: No Status: Acute Assessment and Plan: History of coronary artery disease. - Continue with statin patient able to take by mouth (2) Diabetes mellitus Current Visit: No Status: Acute Assessment and Plan: History of type 2 diabetes. -Start patient on sliding scale plus insulin and monitor every 6 hours. Goal blood glucose 140-180. Monitor glucoses closely since patient has unpredictable oral intake (3) HTN (hypertension) Current Visit: No Status: Acute Assessment and Plan: Will resume home medications lisinopril metoprolol and Lasix (4) DVT prophylaxis Current Visit: No Status: Acute Assessment and Plan: Subcutaneous heparin (5) Congestive heart failure Current Visit: No Status: Acute Assessment and Plan: History of congestive heart failure documented in patient's PMH. Patient does not appear to be volume overloaded at this time. -Monitor I's and O's; daily weights -Continue monitor creatinine -Follow up echocardiogram-she was not cooperative with echocardiogram we will attempt to repeat -Continue with Lasix (6) CVA (cerebral vascular accident) Current Visit: Yes Status: Acute Assessment and Plan: 83-year-old female with a past medical history of diabetes and hypertension presenting from assisted with stroke like symptoms concerning for CVA. Noted to have significant dysarthria and right-sided facial paresis. Baseline according to assisted is a patient with is able to speak normally. Pupils were sluggish to react to light. Reports of pronator drift appreciated in the ED was not noted. No evidence of unilateral weakness. Laboratory workup notable for hyperglycemia and mild acute kidney injury. CT of the head showing nothing of acute however small prior infarcts are suggested in the cerebellum as well as mild small vessel ischemic changes in the white matter. CTA of the head/neck showing no focal significant arterial narrowing. -Telemetry -Hold antihypertensives to allow for permissive hypertension -Neurochecks -Bedside swallow evaluation to follow -Cardiac echo-patient was not cooperative we will need to repeat Carotid duplex -WNL -PT/OT consult -MRI -scattered small acute infarctions in the posterior left frontal lobe, in the left MCA territory -Neurology consult Continue with aspirin (7) Acute kidney injury Current Visit: Yes Status: Acute Assessment and Plan: Patient found to have a creatinine of 1.44 and GFR 35 in the setting of what appears to be stage III chronic kidney disease. Baseline creatinine appears to be closer to 1.2. This has improved after receiving IV fluids We will continue to monitor closely Avoid nephrotoxins 03/22 This appears to have resolved We will continue to monitor and avoid nephrotoxins (8) UTI (urinary tract infection) Current Visit: Yes Status: Acute Assessment and Plan: Urinalysis indicative of UTI preliminary sensitivity shows gram-negative rods placed on Rocephin pending final culture results - Time Spent with Patient Total time spent is greater than 50% in coordination of care (as documented) at patient's floor/unit and/or counseling patient: Internal Medicine: Result - Labs CBC & Chem 7: 03/21/19 01:35 03/22/19 12:25 - ABG Interpretation ABG results: PT/INR, D-dimer PT 11.2 Seconds (9.4-12.1) 03/20/19 00:50 Consult Discharge Plan - Plan Referrals: Yissel Mclean MD [Primary Care Provider] - (Physician will see patient when she returns to facility. ) (1) CAD (coronary artery disease) Qualifiers: Coronary Disease-Associated Artery/Lesion type: [place] artery [place] vs. transplanted heart: [place] heart Associated angina: angina presence unspecified Qualified Code(s): I25.10 - Atherosclerotic heart disease of [place] coronary artery without angina pectoris (2) Diabetes mellitus Qualifiers: Diabetes mellitus type: type 2 Diabetes mellitus exterminator helper insulin use: with intermediate use Diabetes mellitus complication status: without complication (3) HTN (hypertension) Qualifiers: Hypertension type: essential hypertension Qualified Code(s): I10 - Essential (primary) hypertension (5) Congestive heart failure Qualifiers: Heart failure chronicity: unspecified Qualified Code(s): I50.9 - Heart failure, unspecified (6) CVA (cerebral vascular accident) Qualifiers: CVA mechanism: unspecified Qualified Code(s): I63.9 - Cerebral infarction, unspecified (8) UTI (urinary tract infection) Qualifiers: Urinary tract infection type: site unspecified Hematuria presence: without hematuria Qualified Code(s): N39.0 - Urinary tract infection, site not specified
[2019-03-22 13:10] LABS: Potassium 4.4 mEq/L (3.5-5.1)
[2019-03-22] MEDS ORDERED: cefTRIAXone 1,000 MG in Water for inj. (sterile) 10 ML IVP SCH (15:00)
--- NOTE | 2019-03-22 17:06 | Neurology Progress Note ---
Date of Encounter: 03/22/19 Time of Encounter: 17:02 Assessment and Plan (1) CVA (cerebral vascular accident) Current Visit: Yes Status: Acute I am concerned about the possibility of a cardioembolic phenomenon here. Unfortunately the transthoracic echocardiogram was a poor technical study. I would recommend cardiology consultation to determine whether not to get the best yield out of repeating the transthoracic echocardiogram only thing onto a joe sesophageal echocardiogram. I do believe that anticoagulation would be warranted in this patient if we discover cardioembolic source. I will sign this patient out to Dr. Zamora and Yobany for tomorrow. Qualifiers: CVA mechanism: unspecified Qualified Code(s): I63.9 - Cerebral infarction, unspecified Subjective Principal diagnosis: acute CVA Interval history: The chart was reviewed, patient was seen and examined. Case was discussed with the hospitalist. Patient is increasingly more alert and attentive. Although she is still significantly dysarthric, she is increasingly more verbal. CTA of the head and neck were negative. The standard transthoracic echocardiogram was a poor technical study. However, generally speaking strokes of this nature resulting in aphasia without weakness I generally felt to be due to embolic phenomena to proven otherwise. The MRI scan reveals a scattered foci of infarct in the left anterior temporal region. Patient has been on aspirin since admission. Objective - Constitutional Vitals: Temp Pulse Resp BP Pulse Ox 98.6 F 79 16 173/89 97 03/22/19 12:50 03/22/19 12:50 03/22/19 12:50 03/22/19 12:50 03/22/19 12:50 Exam: Exam: General Examination: *CONSTITUTIONAL: normal *GENERAL APPEARANCE OF PATIENT Generally ill obese female *EYES: pupils equal, round, reactive to light and accommodation, conjunctiva clear without masses or ulcerations, fundi normal. *CARDIOVASCULAR no peripheral edema, distal temperature normal, dorsalis pedis pulses normal. See vital signs Musculoskeletal: *GAIT AND STATION deferred d/t chronic b/l leg weakness; wheelchair dependant at baseline *ASSESSMENT OF MUSCLE STRENGTH IN THE UPPER AND LOWER EXTREMITIES Right deltoid, bicep, tricep and addiction therapist strength 4/5, left deltoid, bicep, tricep and addiction therapist strength. She appears to have 3/5 strength of both lower extremities in all muscle groups. *MUSCLE TONE IN THE UPPER AND LOWER EXTREMITIES normal. No abnormal movements, fasciculations or atrophy identified. Neurological: *ORIENTATION to place *RECURRENT AND REMOTE MEMORY both seem to be impaired. *ATTENTION AND CONCENTRATION abnormal and she is requiring redirection *LANGUAGE FUNCTION speech remains severely dysarthric which is acute with new CVA. She is able to follow commands however and does not appear to have expressive aphsia *FUND OF KNOWLEDGE severely dysarthric and unable to assess *MENTAL unable to maintain attention without prompting and redirection; baseline unclear *CN II optic fundi were normal, no papilledema noted. *CN III,IV, PERRLA extraocular eye movements were full, no nystagmus and no ptosis noted. *CN V shows normal sensation and jaw opens symmetrically. *CN VII continues to have significant right facial droop. *CN VIII shows no significant hearing loss on examination in the office. *CN IX,,X palate elevated symmetrically and normal gag reflex was noted. *CN XI normal strength in the sternocleidomastoid muscles, symmetrical shoulder shrugging. *CN XII tongue protruded in the midline, with normal strength and movement. *SENSORY EXAMINATION difficult to assess in the patient with significant dysarthria. *REFLEXES: deep tendon reflexes were normal and symmetrical , grade 1/4 diffusely, Achilles reflexes are absent symmetrically *CEREBELLAR TESTING not assessed Results - Laboratory Findings CBC and BMP: 03/21/19 01:35 03/22/19 12:25 Abnormal lab findings: Abnormal lab results RBC 3.35 M/mcL (3.82-4.97) L 03/21/19 01:35 Hgb 10.5 g/dL (11.5-15.4) L 03/21/19 01:35 Hct 32.8 % (35.3-44.9) L 03/21/19 01:35 APTT 36.5 Seconds (26.0-36.0) H 03/19/19 16:34 Chloride 110 mEq/L (98-107) H 03/21/19 01:35 BUN 25 mg/dL (8-23) H 03/20/19 00:50 1.22 mg/dL (0.60-1.20) H 03/20/19 00:50 Est GFR ( Amer) 54 (> 60) L 03/22/19 12:25 Est GFR (Non-Af Amer) 45 (> 60) L 03/22/19 12:25 Glucose 174 mg/dL (70-105) H 03/22/19 12:25 POC Glucose 236 mg/dL (70-99) H 03/21/19 20:28 8.4 % (-5.6) H 03/20/19 00:50 305 (280-300) H 03/19/19 16:34 3.4 g/dL (3.5-5.7) L 03/20/19 00:50 Cloudy (Clear) A 03/20/19 22:12 100 mg/dL (Neg-Trace) H 03/20/19 22:12 Trace (Negative) H 03/20/19 22:12 Positive (Negative) A 03/20/19 22:12 Ur Leukocyte Esterase Large (Negative) H 03/20/19 22:12 TNTC per hpf (0-3) H 03/20/19 22:12 Ur Culture Indicated? YES (NO) A 03/20/19 22:12 Consult Discharge Plan - Plan Referrals: Yissel Mclean MD [Primary Care Provider] - (Physician will see patient when she returns to facility. )
[2019-03-22] MEDS: Furosemide 20 MG TABLET PO SCH (17:07)
[2019-03-22] MEDS ORDERED: Ondansetron 4 MG/2 ML VIAL IVP ONE (21:14)
[2019-03-23] MEDS ORDERED: Ondansetron ODT 4 MG TAB.RAPDIS SL ONE (04:40)
[2019-03-23 04:42] LABS: Basophils % 0.3 %; Eosinophils # 0.2 K/mcL (0.0-0.6); Eosinophils % 2.6 %; Hematocrit 32.4 % (35.3-44.9); Hemoglobin 10.6 g/dL (11.5-15.4); Immature Granulocytes % 0.3 % (0-4); Lymphocytes # 2.5 K/mcL (0.6-4.6); Lymphocytes % 34.3 %; Mean Corpuscular HGB Conc 32.7 g/dL (31.6-35.5); Mean Corpuscular Hemoglobin 31.8 pg (28.0-33.3); Mean Corpuscular Volume 97.3 fL (83.0-100.0); Mean Platelet Volume 9.9 fL (9.4-12.4); Monocytes # 0.6 K/mcL (0.0-1.3); Monocytes % 8.7 %; Platelet Count 210 K/mcL (140-400); Red Blood Count 3.33 M/mcL (3.82-4.97); Red Cell Distribution Width 12.4 % (11.5-14.5); Segmented Neutrophils % 53.8 %; White Blood Count 7.4 K/mcL (4.3-11.1)
[2019-03-23] MEDS: *HR* Heparin 5,000 UNIT/ML VIAL SQ SCH ×3 (04:51→20:22)
[2019-03-23] MEDS: Ciprofloxacin HCL Soln 5 ML BOTTLE RIGHT EYE SCH ×6 (04:51→20:22)
[2019-03-23] MEDS: Ciprofloxacin HCL Soln 5 ML BOTTLE LEFT EYE SCH ×6 (04:51→20:22)
[2019-03-23 05:04] LABS: Calcium 9.3 mg/dL (8.6-10.3); Potassium 4.4 mEq/L (3.5-5.1)
[2019-03-23] MEDS: Aspirin 81 MG TAB.CHEW PO SCH (07:20)
[2019-03-23] MEDS: Furosemide 20 MG TABLET PO SCH (07:20)
[2019-03-23] MEDS: Artificial Tears SOLN 15 ML BOTTLE OP PRN (07:25)
[2019-03-23] MEDS: Insulin LISPRO 300 UNITS/3 ML VIAL SQ SCH ×4 (08:39→20:22)
[2019-03-23] MEDS ORDERED: levoFLOXacin 500 MG TABLET PO SCH (09:00)
--- NOTE | 2019-03-23 10:10 | Neurology Progress Note ---
<Yobany Hogan - Last Filed: 03/23/19 10:20> Date of Encounter: 03/23/19 Time of Encounter: 10:08 Assessment and Plan (1) CVA (cerebral vascular accident) Current Visit: Yes Status: Acute Clinically, the patient remains stable and there are no new neurological deficits found on examination this morning. She continues to have severe dysa rthria but her verbal functioning is improving since my assessment of her on Thursday. Review of the MRI reveals what appears to be an embolic infarct in the bronchus area which would explain the severe dysarthria. Given the concerns for a cardioembolic phenomena the patient will most likely need oral anticoagulation for future stroke prevention. Unfortunately the transthoracic echocardiogram was a poor study and we are unable to fully exclude an intracardiac thrombus. At this juncture we are recommending cardio consultation determine whether or not we would need to repeat the transthoracic echocardiogram or if a transesophageal would be a more appropriate study. In the interim period and continuing with the stroke assessment per protocol, continue with aspirin therapy and we recommend adding a statin medication. Further, I discussed aggressive risk factor modifications with the patient for future stroke prevention. Neurology will continue to follow. Qualifiers: CVA mechanism: unspecified Qualified Code(s): I63.9 - Cerebral infarction, unspecified Subjective Principal diagnosis: acute CVA Interval history: The chart was reviewed, the patient was seen and examined at the bedside this morning. At the time of my assessment this morning she was sleeping but arousable to gentle verbal stimulus and afterwards was alert and attentive and able to follow commands appropriately. The severe dysarthria persists but as previously noted she was increasingly more verbal than my assessment on Thursday. I discussed CTA imaging of the head and neck findings and TTE findings with the patient. Further, I noted that given the fact that the CVA appears to be emb olic we will most likely need a BRENDA for further evaluation of an intracardiac thrombus. The patient agrees to the further workup. Again, I noted that she may need oral anticoagulation future for future stroke prevention and again she agrees and denies any further questions. Objective - Constitutional Vitals: Temp Pulse Resp BP Pulse Ox 97.8 F 76 16 145/67 97 03/23/19 08:00 03/23/19 08:00 03/23/19 08:00 03/23/19 08:00 03/23/19 08:00 Exam: General Examination: *CONSTITUTIONAL: Alert and oriented times *GENERAL APPEARANCE OF PATIENT Generally ill obese female *EYES: pupils equal, round, reactive to light and accommodation, conjunctiva clear without masses or ulcerations, fundi normal. *CARDIOVASCULAR no peripheral edema, distal temperature normal, dorsalis pedis pulses normal. See vital signs Musculoskeletal: *GAIT AND STATION deferred d/t chronic b/l leg weakness; wheelchair dependant at baseline *ASSESSMENT OF MUSCLE STRENGTH IN THE UPPER AND LOWER EXTREMITIES Right deltoid, bicep, tricep and drum tender strength 4/5, left deltoid, bicep, tricep and drum tender strength. She appears to have 3/5 strength of both lower extremities in all muscle groups. *MUSCLE TONE IN THE UPPER AND LOWER EXTREMITIES normal. No abnormal movements, fasciculations or atrophy identified. Neurological: *ORIENTATION to place *RECURRENT AND REMOTE MEMORY both seem to be impaired. *ATTENTION AND CONCENTRATION have improved since admission. She is able to maintain attention and concentration unable to follow commands without difficulty. *LANGUAGE FUNCTION persistent dysarthria but patient's verbal function is improving. There is no component of receptive aphasia present *FUND OF KNOWLEDGE severe dysarthria is persistent but verbal functioning is improving *MENTAL attention and concentration are appropriate and she is able to follow commands and maintain attention without interruption for the need for redirection *CN II optic fundi were normal, no papilledema noted. *CN III,IV, PERRLA extraocular eye movements were full, no nystagmus and no ptosis noted. *CN V shows normal sensation and jaw opens asymmetrically with right facial droop *CN VII continues to have significant right facial droop. *CN VIII shows no significant hearing loss on examination in the office. *CN IX,,X palate elevated symmetrically and normal gag reflex was noted. *CN XI normal strength in the sternocleidomastoid muscles, symmetrical shoulder shrugging. *CN XII tongue protruded in the midline, with normal strength and movement. *SENSORY EXAMINATION light touch intact *REFLEXES: deep tendon reflexes were normal and symmetrical , grade 1/4 diffusely, Achilles reflexes are absent symmetrically *CEREBELLAR TESTING not assessed Results - Laboratory Findings CBC and BMP: 03/23/19 03:34 03/23/19 03:34 Abnormal lab findings: Abnormal lab results RBC 3.33 M/mcL (3.82-4.97) L 03/23/19 03:34 Hgb 10.6 g/dL (11.5-15.4) L 03/23/19 03:34 Hct 32.4 % (35.3-44.9) L 03/23/19 03:34 APTT 36.5 Seconds (26.0-36.0) H 03/19/19 16:34 Chloride 110 mEq/L (98-107) H 03/21/19 01:35 BUN 25 mg/dL (8-23) H 03/20/19 00:50 1.37 mg/dL (0.60-1.20) H 03/23/19 03:34 Est GFR ( Amer) 44 (> 60) L 03/23/19 03:34 Est GFR (Non-Af Amer) 37 (> 60) L 03/23/19 03:34 Glucose 153 mg/dL (70-105) H 03/23/19 03:34 POC Glucose 278 mg/dL (70-99) H 03/22/19 20:42 8.4 % (-5.6) H 03/20/19 00:50 305 (280-300) H 03/23/19 03:34 3.4 g/dL (3.5-5.7) L 03/20/19 00:50 Cloudy (Clear) A 03/20/19 22:12 100 mg/dL (Neg-Trace) H 03/20/19 22:12 Trace (Negative) H 03/20/19 22:12 Positive (Negative) A 03/20/19 22:12 Ur Leukocyte Esterase Large (Negative) H 03/20/19 22:12 TNTC per hpf (0-3) H 03/20/19 22:12 Ur Culture Indicated? YES (NO) A 03/20/19 22:12 Consult Discharge Plan - Plan Referrals: Yissel Mclean MD [Primary Care Provider] - (Physician will see patient when she returns to facility. ) <Marck Zamora I - Last Filed: 03/23/19 13:26> Date of Encounter: 03/23/19 Assessment and Plan (1) CVA (cerebral vascular accident) Current Visit: Yes Status: Acute I have personally performed a face to face diagnostic evaluation, including HPI, EXAM, which is included in the Assesment and plan, which was discussed with Yobany Hogan CNP, I agree with the above outlined documentation. Marck Zamora MD. NeurologyI Qualifiers: CVA mechanism: unspecified Qualified Code(s): I63.9 - Cerebral infarction, unspecified Objective - Constitutional Vitals: Temp Pulse Resp BP Pulse Ox 98.4 F 66 14 127/76 93 03/23/19 10:53 03/23/19 10:53 03/23/19 10:53 03/23/19 10:53 03/23/19 10:53 Results - Laboratory Findings CBC and BMP: 03/23/19 03:34 03/23/19 03:34 Abnormal lab findings: Abnormal lab results RBC 3.33 M/mcL (3.82-4.97) L 03/23/19 03:34 Hgb 10.6 g/dL (11.5-15.4) L 03/23/19 03:34 Hct 32.4 % (35.3-44.9) L 03/23/19 03:34 APTT 36.5 Seconds (26.0-36.0) H 03/19/19 16:34 Chloride 110 mEq/L (98-107) H 03/21/19 01:35 BUN 25 mg/dL (8-23) H 03/20/19 00:50 1.37 mg/dL (0.60-1.20) H 03/23/19 03:34 Est GFR ( Amer) 44 (> 60) L 03/23/19 03:34 Est GFR (Non-Af Amer) 37 (> 60) L 03/23/19 03:34 Glucose 153 mg/dL (70-105) H 03/23/19 03:34 POC Glucose 278 mg/dL (70-99) H 03/22/19 20:42 8.4 % (-5.6) H 03/20/19 00:50 305 (280-300) H 03/23/19 03:34 3.4 g/dL (3.5-5.7) L 03/20/19 00:50 Cloudy (Clear) A 03/20/19 22:12 100 mg/dL (Neg-Trace) H 03/20/19 22:12 Trace (Negative) H 03/20/19 22:12 Positive (Negative) A 03/20/19 22:12 Ur Leukocyte Esterase Large (Negative) H 03/20/19 22:12 TNTC per hpf (0-3) H 03/20/19 22:12 Ur Culture Indicated? YES (NO) A 03/20/19 22:12
--- NOTE | 2019-03-23 10:49 | Internal Med Progress Note ---
Hospitalist Progress Note - Encounter Date of Encounter: 03/23/19 Time of Encounter: 10:47 - Subjective Interval History: Pt seen and examined in the room. She had profound aphasia and have severe difficulty expressing herself. She is very upset and frustrated. Diet has changed to pureed per ST. Overnight, she pulled out IV and does not want to be inserted another IV. Denies fever, chills, or night sweats. No urinary symptoms. - Exam Vitals: Temp Pulse Resp BP Pulse Ox 97.8 F 76 16 145/67 97 03/23/19 08:00 03/23/19 08:00 03/23/19 08:00 03/23/19 08:00 03/23/19 08:00 Exam: General: Alert and oriented 1 however unable to assess person or place due to dysarthria Skin:Normal color, no rash, no lesions. HEENT:EOM, pupils equal, round and reactive. Cardiovascular:Normal S1 & S2, no rubs, murmurs or gallops. No JVD. Pulse regular. Lungs:Normal breath sounds, no wheezes or crackles. Abdomen:Soft, non-tender, no rigidity. Extremities:No deformity, no edema or tenderness, no joint swelling or clubbing. Neurological: Patient able to follow commands. Pupils sluggish to react. Right-sided facial paresis. Remainder of cranial nerves intact. Sensation intact. Muscle strength in the upper extremities 5 out of 5 bilaterally. Muscle strength lower extremities 4 out of 5 bilaterally. No dysmetria Pulses:Carotid and radial pulses normal +2. Rest of the physical exam is non contributory - Assessment and Plan (1) CVA (cerebral vascular accident) Current Visit: Yes Status: Acute Assessment and Plan: 03/22 83-year-old female with a past medical history of diabetes and hypertension presenting from long-term with stroke like symptoms concerning for CVA. Noted to have significant dysarthria and right-sided facial paresis. Baseline according to long-term is a patient with is able to speak normally. Pupils were sluggish to react to light. Reports of pronator drift appreciated in the ED was not noted. No evidence of unilateral weakness. Laboratory workup notable for hyperglycemia and mild acute kidney injury. CT of the head showing nothing of acute however small prior infarcts are suggested in the cerebellum as well as mild small vessel ischemic changes in the white matter. CTA of the head/neck showing no focal significant arterial narrowing. -Telemetry -Hold antihypertensives to allow for permissive hypertension -Neurochecks -Bedside swallow evaluation to follow -Cardiac echo-patient was not cooperative we will need to repeat Carotid duplex -WNL -PT/OT consult -MRI -scattered small acute infarctions in the posterior left frontal lobe, in the left MCA territory -Neurology consult Continue with aspirin. 03/23 Multiple punctuated stroke at the left MCA territory involving posterior left frontal lobe, likely affected the language area. Neurology was consulted, and embolic stroke was suspected, however, echocardiogram results was sub-optimal because pt dis not cooperate. BRENDA was ordered per neurology. Continue aspirin. Plan for discharge ECF. (2) CAD (coronary artery disease) Current Visit: No Status: Acute Assessment and Plan: History of coronary artery disease. Continue with statin patient able to take by mouth. (3) Diabetes mellitus Current Visit: No Status: Acute Assessment and Plan: History of type 2 diabetes. Start patient on sliding scale plus insulin and monitor every 6 hours. Goal blood glucose 140-180. Monitor glucoses closely since patient has unpredictable oral intake (4) HTN (hypertension) Current Visit: No Status: Acute Assessment and Plan: continue home medications lisinopril metoprolol and Lasix (5) Congestive heart failure Current Visit: No Status: Acute Assessment and Plan: History of congestive heart failure documented in patient's PMH. Patient does not appear to be volume overloaded at this time. -Monitor I's and O's; daily weights -Continue monitor creatinine -Follow up echocardiogram-she was not cooperative. -Continue with Lasix (6) UTI (urinary tract infection) Current Visit: Yes Status: Acute Assessment and Plan: Urine cx showed E. coli and sensitive to Levaquin. IV abx changed to oral Levaquin. (7) CKD (chronic kidney disease) stage 3, GFR 30-59 ml/min Current Visit: No Status: Chronic Assessment and Plan: Cr at baseline, continue current treatment. (8) DVT prophylaxis Current Visit: Yes Status: Acute Assessment and Plan: Subcutaneous heparin - Time Spent with Patient Total time spent is greater than 50% in coordination of care (as documented) at patient's floor/unit and/or counseling patient: Greater than 35 minutes Plan of Care Discussed with: patient Internal Medicine: Result - Labs CBC & Chem 7: 03/23/19 03:34 03/23/19 03:34 Labs: Short CBC 03/23/19 Range/Units 03:34 WBC 7.4 (4.3-11.1) K/mcL Hgb 10.6 L (11.5-15.4) g/dL Hct 32.4 L (35.3-44.9) % Plt Count 210 (140-400) K/mcL Neutrophils # 4.0 (1.6-8.9) K/mcL BMP 03/22/19 03/23/19 12:25 03:34 Sodium 142 144 Potassium 4.4 4.4 Chloride 107 107 Carbon Dioxide 28 26 BUN 18 23 Creatinine 1.15 1.37 H Glucose 174 H 153 H Calcium 9.0 9.3 - ABG Interpretation ABG results: PT/INR, D-dimer PT 11.2 Seconds (9.4-12.1) 03/20/19 00:50 - Impressions Impressions Head CTA 03/19/19 16:51 IMPRESSION: No focal significant arterial narrowing in the neck No focal significant arterial narrowing in the head Low-density and high density small thyroid lesions are likely benign. No follow-up imaging is recommended Small upper lung zone nodules as described. RECOMMENDATIONS: Fleischner Society guidelines for follow-up and management of incidentally detected pulmonary nodules: Multiple Solid Nodules: Nodule size less than 6 mm In a low-risk patient, no routine follow-up. In a high-risk patient, optional CT at 12 months. Nodule size equals 6-8 mm In a low-risk patient, CT at 3-6 months, then consider CT at 18-24 months. In a high-risk patient, CT at 3-6 months, then CT at 18-24 months. Nodule size greater than 8 mm In a low-risk patient, CT at 3-6 months, then consider CT at 18-24 months. In a high-risk patient, CT at 3-6 months, then CT at 18-24 months. - Low risk patients include individuals with minimal or absent history of smoking and other known risk factors. - High risk patients include individuals with a history or smoking or known risk factors. Radiology 2017 http://pubs.rsna.org/doi/full/10.1148/radiol.[email or web address] D/ / Willian Villanueva / Willian Villanueva Interpreting Provider: Willian Villanueva Neck CTA 03/19/19 16:51 IMPRESSION: No focal significant arterial narrowing in the neck No focal significant arterial narrowing in the head Low-density and high density small thyroid lesions are likely benign. No follow-up imaging is recommended Small upper lung zone nodules as described. RECOMMENDATIONS: Fleischner Society guidelines for follow-up and management of incidentally detected pulmonary nodules: Multiple Solid Nodules: Nodule size less than 6 mm In a low-risk patient, no routine follow-up. In a high-risk patient, optional CT at 12 months. Nodule size equals 6-8 mm In a low-risk patient, CT at 3-6 months, then consider CT at 18-24 months. In a high-risk patient, CT at 3-6 months, then CT at 18-24 months. Nodule size greater than 8 mm In a low-risk patient, CT at 3-6 months, then consider CT at 18-24 months. In a high-risk patient, CT at 3-6 months, then CT at 18-24 months. - Low risk patients include individuals with minimal or absent history of smoking and other known risk factors. - High risk patients include individuals with a history or smoking or known risk factors. Radiology 2017 http://pubs.rsna.org/doi/full/10.1148/radiol.[email or web address] D/ / Willian Villanueva / Willian Villanueva Interpreting Provider: Willian Villanueva Echocardiogram 03/19/19 20:33 Impressions: Unable to accurately determine LVEF due to technical quality. Recommend a repeat limited study with contrast enhancement. Mild concentric left ventricular hypertrophy. Atypical septal motion consistent with bundle branch block. Grossly normal right ventricular structure and function. Unable to estimate RVSP due to lack of TR jet. No obvious significant valvular dysfunction. Findings: Study Quality * Technically sub-optimal due to clinical status. ECG Findings * Sinus rhythm with BBB. Left Ventricle * Unable to accurately determine LVEF due to technical quality. Recommend a repeat limited study with contrast enhancement. * Mild concentric left ventricular hypertrophy. * Atypical septal motion consistent with bundle branch block. Right Ventricle * Grossly normal right ventricular structure and function. Left Atrium * Mildly dilated left atrium. Right Atrium * Normal right atrial size. Interatrial Septum * Interatrial septum not well evaluated. Aortic Valve * Trileaflet aortic valve. * Mildly sclerotic aortic valve leaflets. * No aortic regurgitation. * No aortic stenosis. Mitral Valve * Mild mitral annular calcification * Trace mitral regurgitation. * No mitral stenosis. Tricuspid Valve * Normal tricuspid valve structure and function. * No tricuspid regurgitation. * Unable to estimate RVSP due to lack of TR jet. Pulmonic Valve * Pulmonic valve not well visualized. Aorta * Normally sized aortic root. Pericardium * There is a trivial pericardial effusion present. IVC * The IVC is not well evaluated. Pulmonary Artery * Pulmonary artery not well visualized. Videofluoroscopic Swallow 03/22/19 11:27 IMPRESSION: Deep penetration with nectar consistency barium. No aspiration. Please see separate speech pathology report for full discussion of findings and recommendations. D/ / Omar Mata MD / Omar Mata MD Interpreting Provider: Omar Mata MD Consult Discharge Plan - Plan Referrals: Yissel Mclean MD [Primary Care Provider] - (Physician will see patient when she returns to facility. ) (1) CVA (cerebral vascular accident) Qualifiers: CVA mechanism: unspecified Qualified Code(s): I63.9 - Cerebral infarction, unspecified (2) CAD (coronary artery disease) Qualifiers: Coronary Disease-Associated Artery/Lesion type: [place] artery [place] vs. transplanted heart: [place] heart Associated angina: angina presence unspecified Qualified Code(s): I25.10 - Atherosclerotic heart disease of [place] coronary artery without angina pectoris (3) Diabetes mellitus Qualifiers: Diabetes mellitus type: type 2 Diabetes mellitus care home insulin use: with care home use Diabetes mellitus complication status: without complication (4) HTN (hypertension) Qualifiers: Hypertension type: essential hypertension Qualified Code(s): I10 - Essential (primary) hypertension (5) Congestive heart failure Qualifiers: Heart failure chronicity: unspecified Qualified Code(s): I50.9 - Heart failure, unspecified (6) UTI (urinary tract infection) Qualifiers: Urinary tract infection type: site unspecified Hematuria presence: without hematuria Qualified Code(s): N39.0 - Urinary tract infection, site not specified
--- NOTE | 2019-03-23 12:54 | Electrocardiograph Report ---
[place] [id number] Test Date: 2019-03-19 Pat Name: Latonya Sanchez Department: EXAM9 Room: 3B23 Gender: F [employer]: : [id number] Requested By: Josue Tavera Order Number: [id number] Reading MD: Katarzyna Bhandari Measurements Intervals [place] Rate: 76 P: 51 IN: 192 QRS: 3 QRSD: 157 T: 204 QT: 421 QTc: 474 Interpretive Statements Sinus rhythm Left bundle branch block Artifact Electronically Signed On 03-23-2019 12:52:35 EDT by Katarzyna Bhandari
[2019-03-24] MEDS: Ciprofloxacin HCL Soln 5 ML BOTTLE LEFT EYE SCH ×7 (01:14→23:36)
[2019-03-24] MEDS: Ciprofloxacin HCL Soln 5 ML BOTTLE RIGHT EYE SCH ×7 (01:14→23:36)
[2019-03-24 05:22] LABS: Basophils % 0.4 %; Eosinophils # 0.2 K/mcL (0.0-0.6); Hematocrit 34.6 % (35.3-44.9); Hemoglobin 10.9 g/dL (11.5-15.4); Immature Granulocytes % 0.4 % (0-4); Lymphocytes # 3.1 K/mcL (0.6-4.6); Lymphocytes % 38.2 %; Mean Corpuscular HGB Conc 31.5 g/dL (31.6-35.5); Mean Corpuscular Hemoglobin 31.4 pg (28.0-33.3); Mean Corpuscular Volume 99.7 fL (83.0-100.0); Mean Platelet Volume 10.1 fL (9.4-12.4); Monocytes # 0.6 K/mcL (0.0-1.3); Monocytes % 7.4 %; Neutrophils # 4.1 K/mcL (1.6-8.9); Platelet Count 214 K/mcL (140-400); Red Blood Count 3.47 M/mcL (3.82-4.97); Red Cell Distribution Width 12.6 % (11.5-14.5); Segmented Neutrophils % 50.6 %
[2019-03-24 05:33] LABS: Calcium 9.1 mg/dL (8.6-10.3); Potassium 4.2 mEq/L (3.5-5.1)
[2019-03-24] MEDS: *HR* Heparin 5,000 UNIT/ML VIAL SQ SCH ×3 (05:34→21:16)
[2019-03-24] MEDS: Insulin LISPRO 300 UNITS/3 ML VIAL SQ SCH ×4 (08:26→21:16)
[2019-03-24] MEDS ORDERED: Ondansetron 4 MG/2 ML VIAL IVP PRN ×2 (08:42→17:23)
--- NOTE | 2019-03-24 09:10 | Internal Med Progress Note ---
Hospitalist Progress Note - Encounter Date of Encounter: 03/24/19 Time of Encounter: 09:08 - Subjective Interval History: Pt seen and examined in the room. She is non-verbal and very frustrated that she cannot speak. She is trying to pull out IV. - Exam Vitals: Temp Pulse Resp BP Pulse Ox 98.5 F 66 16 152/63 100 03/24/19 07:27 03/24/19 07:27 03/24/19 07:27 03/24/19 07:03/24/19 07:27 Exam: General: Alert and oriented 1 however unable to assess person or place due to dysarthria Skin:Normal color, no rash, no lesions. HEENT:EOM, pupils equal, round and reactive. Cardiovascular:Normal S1 & S2, no rubs, murmurs or gallops. No JVD. Pulse regular. Lungs:Normal breath sounds, no wheezes or crackles. Abdomen:Soft, non-tender, no rigidity. Extremities:No deformity, no edema or tenderness, no joint swelling or clubbing. Neurological: Patient able to follow commands. Pupils sluggish to react. Right-sided facial paresis. Remainder of cranial nerves intact. Sensation intact. Muscle strength in the upper extremities 5 out of 5 bilaterally. Muscle strength lower extremities 4 out of 5 bilaterally. No dysmetria Pulses:Carotid and radial pulses normal +2. Rest of the physical exam is non contributory - Assessment and Plan (1) CVA (cerebral vascular accident) Current Visit: Yes Status: Acute Assessment and Plan: 03/22 83-year-old female with a past medical history of diabetes and hypertension presenting from alf with stroke like symptoms concerning for CVA. Noted to have significant dysarthria and right-sided facial paresis. Baseline according to alf is a patient with is able to speak normally. Pupils w ere sluggish to react to light. Reports of pronator drift appreciated in the ED was not noted. No evidence of unilateral weakness. Laboratory workup notable for hyperglycemia and mild acute kidney injury. CT of the head showing nothing of acute however small prior infarcts are suggested in the cerebellum as well as mild small vessel ischemic changes in the white matter. CTA of the head/neck s howing no focal significant arterial narrowing. -Telemetry -Hold antihypertensives to allow for permissive hypertension -Neurochecks -Bedside swallow evaluation to follow -Cardiac echo-patient was not cooperative we will need to repeat Carotid duplex -WNL -PT/OT consult -MRI -scattered small acute infarctions in the posterior left frontal lobe, in the left MCA territory -Neurology consult Continue with aspirin. 03/23 Multiple punctuated stroke at the left MCA territory involving posterior left frontal lobe, likely affected the language area. Neurology was consulted, and embolic stroke was suspected, however, echocardiogram results was sub-optimal because pt dis not cooperate. BRENDA was ordered per neurology. Continue aspirin. Plan for discharge ECF. 03/24 BRENDA planned today. Neuro following. (2) CAD (coronary artery disease) Current Visit: No Status: Acute Assessment and Plan: History of coronary artery disease. Continue with statin patient able to take by mouth. (3) Diabetes mellitus Current Visit: No Status: Acute Assessment and Plan: History of type 2 diabetes. Start patient on sliding scale plus insulin and monitor every 6 hours. Goal blood glucose 140-180. Monitor glucoses closely since patient has unpredictable oral intake (4) HTN (hypertension) Current Visit: No Status: Acute Assessment and Plan: continue home medications lisinopril metoprolol and Lasix (5) Congestive heart failure Current Visit: No Status: Acute Assessment and Plan: Pt seems dry and Cr is rising above the baseline 1.15->1.37->1.63. It could be caused by poor po intake due to dysphargia. Lasix hold and IV fluid started. Continue monitoring renal function. (6) UTI (urinary tract infection) Current Visit: Yes Status: Acute Assessment and Plan: Urine cx showed E. coli and sensitive to Levaquin. IV abx changed to oral Levaquin. (7) CKD (chronic kidney disease) stage 3, GFR 30-59 ml/min Current Visit: No Status: Chronic Assessment and Plan: Cr 1.67, lasix oh hold and IVF started. (8) DVT prophylaxis Current Visit: Yes Status: Acute Assessment and Plan: Subcutaneous heparin DVT Prophylaxis: Heparin sq. - Time Spent with Patient Total time spent is greater than 50% in coordination of care (as documented) at patient's floor/unit and/or counseling patient: Greater than 35 minutes Plan of Care Discussed with: patient Internal Medicine: Result - Labs CBC & Chem 7: 03/24/19 04:18 03/24/19 04:18 Labs: Short CBC 03/24/19 Range/Units 04:18 WBC 8.0 (4.3-11.1) K/mcL Hgb 10.9 L (11.5-15.4) g/dL Hct 34.6 L (35.3-44.9) % Plt Count 214 (140-400) K/mcL Neutrophils # 4.1 (1.6-8.9) K/mcL BMP 03/24/19 04:18 Sodium 144 Potassium 4.2 Chloride 108 H Carbon Dioxide 28 BUN 25 H Creatinine 1.63 H Glucose 195 H Calcium 9.1 - ABG Interpretation ABG results: PT/INR, D-dimer PT 11.2 Seconds (9.4-12.1) 03/20/19 00:50 Consult Discharge Plan - Plan Referrals: Yissel Mclean MD [Primary Care Provider] - (Physician will see patient when she returns to facility. ) (1) CVA (cerebral vascular accident) Qualifiers: CVA mechanism: unspecified Qualified Code(s): I63.9 - Cerebral infarction, unspecified (2) CAD (coronary artery disease) Qualifiers: Coronary Disease-Associated Artery/Lesion type: [place] artery [place] vs. transplanted heart: [place] heart Associated angina: angina presence unspecified Qualified Code(s): I25.10 - Atherosclerotic heart disease of [place] coronary artery without angina pectoris (3) Diabetes mellitus Qualifiers: Diabetes mellitus type: type 2 Diabetes mellitus retirement insulin use: with retirement use Diabetes mellitus complication status: without complication (4) HTN (hypertension) Qualifiers: Hypertension type: essential hypertension Qualified Code(s): I10 - Essential (primary) hypertension (5) Congestive heart failure Qualifiers: Heart failure chronicity: unspecified Qualified Code(s): I50.9 - Heart failu re, unspecified (6) UTI (urinary tract infection) Qualifiers: Urinary tract infection type: site unspecified Hematuria presence: without hematuria Qualified Code(s): N39.0 - Urinary tract infection, site not specified
--- NOTE | 2019-03-24 09:14 | Neurology Progress Note ---
<Yobany Hogan J - Last Filed: 03/24/19 09:10> Date of Encounter: 03/24/19 Time of Encounter: 09:10 Assessment and Plan (1) CVA (cerebral vascular accident) Current Visit: Yes Status: Acute The patient was seen in f/u for an acute CVA in [facility]. She is having persistent severe dysarthria but her verbal functioning is improving. There are no new neurological deficits found on exam today. She has already had a suboptimal TTE which did not identify any obvious cardioembolic source. Given the concerns for a cerdioembolic phenomena she is supposed to undergo a BRENDA this morning. In the meantime c/w ASA and statin therapy. Further recommendations regarding oral anticoagulation are pending the BRENDA. Again I discussed aggressive risk factor modifications and strict medication compliance. Neurology will continue to follow. Subjective Principal diagnosis: acute CVA Interval history: The chart was reviewed, the patient the patient's case was discussed with the primary team. She was seen and examined at the bedside this morning and was found to be sleeping but was arousable to gentle verbal stimulus, A and O 3, aware of current events and able to follow commands appropriately. In brief this is an unfortunate 83-year-old female who has had an acute CVA and [facility]. It appears that the etiology was likely embolic. This was discussed with the patient. The TTE was suboptimal and therefore she will be getting a BRENDA to evaluate for an embolic source. Objective - Constitutional Vitals: Temp Pulse Resp BP Pulse Ox 98.5 F 66 16 152/63 100 03/24/19 07:27 03/24/19 07:27 03/24/19 07:27 03/24/19 07:27 03/24/19 07:27 Exam: General Examination: *CONSTITUTIONAL: Alert and oriented x3 *GENERAL APPEARANCE OF PATIENT Generally ill obese female *EYES: pupils equal, round, reactive to light and accommodation, conjunctiva clear *CARDIOVASCULAR no peripheral edema, distal temperature normal, dorsalis pedis pulses normal. See vital signs Musculoskeletal: *GAIT AND STATION deferred d/t chronic b/l leg weakness; wheelchair dependant at baseline *ASSESSMENT OF MUSCLE STRENGTH IN THE UPPER AND LOWER EXTREMITIES Right deltoid, bicep, tricep and assistant plant controller strength 4/5, left deltoid, bicep, tricep and assistant plant controller strength. She appears to have 3/5 strength of both lower extremities in all muscle groups. *MUSCLE TONE IN THE UPPER AND LOWER EXTREMITIES normal. No abnormal movements, fasciculations or atrophy identified. Neurological: *ORIENTATION to place, person, situation, date and current President *RECURRENT AND REMOTE MEMORY intact *ATTENTION AND CONCENTRATION maintains attention and concentration and able to follow commands without difficulty. *LANGUAGE FUNCTION persistent dysarthria but verbal function is improving. There is no component of receptive aphasia present *FUND OF KNOWLEDGE severe dysarthria is persistent but verbal functioning has improving *MENTAL attention and concentration are appropriate and she is able to follow commands and maintain attention without interruption for the need for redirection *CN II optic fundi were normal, no papilledema noted. *CN III,IV, PERRLA extraocular eye movements were full, no nystagmus and no ptosis noted. *CN V shows normal sensation and jaw opens asymmetrically with right facial droop *CN VII continues to have significant right facial droop. *CN VIII shows no significant hearing loss on examination in the office. *CN IX,,X palate elevated symmetrically and normal gag reflex was noted. *CN XI normal strength in the sternocleidomastoid muscles, symmetrical shoulder shrugging. *CN XII tongue protruded in the midline, with normal strength and movement. *SENSORY EXAMINATION light touch intact *REFLEXES: deep tendon reflexes were normal and symmetrical , grade 1/4 diffusely, Achilles reflexes are absent symmetrically *CEREBELLAR TESTING normal finger to nose Results - Laboratory Findings CBC and BMP: 03/24/19 04:18 03/24/19 04:18 Abnormal lab findings: Abnormal lab results RBC 3.47 M/mcL (3.82-4.97) L 03/24/19 04:18 Hgb 10.9 g/dL (11.5-15.4) L 03/24/19 04:18 Hct 34.6 % (35.3-44.9) L 03/24/19 04:18 MCHC 31.5 g/dL (31.6-35.5) L 03/24/19 04:18 APTT 36.5 Seconds (26.0-36.0) H 03/19/19 16:34 Chloride 108 mEq/L (98-107) H 03/24/19 04:18 BUN 25 mg/dL (8-23) H 03/24/19 04:18 1.63 mg/dL (0.60-1.20) H 03/24/19 04:18 Est GFR ( Amer) 36 (> 60) L 03/24/19 04:18 Est GFR (Non-Af Amer) 30 (> 60) L 03/24/19 04:18 Glucose 195 mg/dL (70-105) H 03/24/19 04:18 POC Glucose 182 mg/dL (70-99) H 03/23/19 20:21 8.4 % (-5.6) H 03/20/19 00:50 308 (280-300) H 03/24/19 04:18 3.4 g/dL (3.5-5.7) L 03/20/19 00:50 Cloudy (Clear) A 03/20/19 22:12 100 mg/dL (Neg-Trace) H 03/20/19 22:12 Trace (Negative) H 03/20/19 22:12 Positive (Negative) A 03/20/19 22:12 Ur Leukocyte Esterase Large (Negative) H 03/20/19 22:12 TNTC per hpf (0-3) H 03/20/19 22:12 Ur Culture Indicated? YES (NO) A 03/20/19 22:12 Consult Discharge Plan - Plan Referrals: Yissel Mclean MD [Primary Care Provider] - (Physician will see patient when she returns to facility. ) <Marck Zamora I - Last Filed: 03/24/19 15:24> Date of Encounter: 03/24/19 Assessment and Plan (1) CVA (cerebral vascular accident) Current Visit: Yes Status: Acute I have personally performed a face to face diagnostic evaluation, including HPI, EXAM, which is included in the Assesment and plan, which was discussed with Yobany Hogan CNP, I agree with the above outlined documentation. Overall remained stable as she may not be able to get BRENDA perhaps could repeat transthoracic echocardiogram to look for any embolic source in the meantime continue on antiplatelet therapy Marck Zamora MD. NeurologyI Qualifiers: CVA mechanism: unspecified Qualified Code(s): I63.9 - Cerebral infarction, unspecified Objective - Constitutional Vitals: Temp Pulse Resp BP Pulse Ox 97.9 F 78 12 180/84 97 03/24/19 12:42 03/24/19 12:42 03/24/19 12:42 03/24/19 12:42 03/24/19 12:42 Results - Laboratory Findings CBC and BMP: 03/24/19 04:18 03/24/19 04:18 Abnormal lab findings: Abnormal lab results RBC 3.47 M/mcL (3.82-4.97) L 03/24/19 04:18 Hgb 10.9 g/dL (11.5-15.4) L 03/24/19 04:18 Hct 34.6 % (35.3-44.9) L 03/24/19 04:18 MCHC 31.5 g/dL (31.6-35.5) L 03/24/19 04:18 APTT 36.5 Seconds (26.0-36.0) H 03/19/19 16:34 Chloride 108 mEq/L (98-107) H 03/24/19 04:18 BUN 25 mg/dL (8-23) H 03/24/19 04:18 1.63 mg/dL (0.60-1.20) H 03/24/19 04:18 Est GFR ( Amer) 36 (> 60) L 03/24/19 04:18 Est GFR (Non-Af Amer) 30 (> 60) L 03/24/19 04:18 Glucose 195 mg/dL (70-105) H 03/24/19 04:18 POC Glucose 182 mg/dL (70-99) H 03/23/19 20:21 8.4 % (-5.6) H 03/20/19 00:50 308 (280-300) H 03/24/19 04:18 3.4 g/dL (3.5-5.7) L 03/20/19 00:50 Cloudy (Clear) A 03/20/19 22:12 100 mg/dL (Neg-Trace) H 03/20/19 22:12 Trace (Negative) H 03/20/19 22:12 Positive (Negative) A 03/20/19 22:12 Ur Leukocyte Esterase Large (Negative) H 03/20/19 22:12 TNTC per hpf (0-3) H 03/20/19 22:12 Ur Culture Indicated? YES (NO) A 03/20/19 22:12
[2019-03-24] MEDS: 0.9 % Sodium Chloride 1,000 ML IVC SCH ×2 (09:30→21:14)
[2019-03-24] MEDS ORDERED: 0.9 % Sodium Chloride 500 ML IVC ONE (12:15)
[2019-03-24] MEDS: *HR* Midazolam HCl 5 MG/5 ML VIAL IVP PRN ×2 (13:10→13:15)
[2019-03-24] MEDS: *HR* FentaNYL (PF) 100 MCG/2 ML VIAL IVP PRN ×2 (13:10→13:20)
[2019-03-24] MEDS: levoFLOXacin 250 MG TABLET PO SCH (15:23)
[2019-03-24] MEDS: Aspirin 81 MG TAB.CHEW PO SCH (15:24)
[2019-03-25] MEDS: Ciprofloxacin HCL Soln 5 ML BOTTLE LEFT EYE SCH ×3 (03:11→12:08)
[2019-03-25] MEDS: Ciprofloxacin HCL Soln 5 ML BOTTLE RIGHT EYE SCH ×3 (03:11→12:08)
[2019-03-25 04:52] LABS: Hematocrit 30.8 % (35.3-44.9); Hemoglobin 9.9 g/dL (11.5-15.4); Mean Corpuscular HGB Conc 32.1 g/dL (31.6-35.5); Mean Corpuscular Hemoglobin 31.9 pg (28.0-33.3); Mean Corpuscular Volume 99.4 fL (83.0-100.0); Mean Platelet Volume 9.9 fL (9.4-12.4); Platelet Count 196 K/mcL (140-400); Red Cell Distribution Width 12.6 % (11.5-14.5); White Blood Count 8.5 K/mcL (4.3-11.1)
[2019-03-25] MEDS: *HR* Heparin 5,000 UNIT/ML VIAL SQ SCH (05:08)
[2019-03-25 05:10] LABS: Calcium 8.4 mg/dL (8.6-10.3); Potassium 4.7 mEq/L (3.5-5.1)
[2019-03-25] MEDS: Insulin LISPRO 300 UNITS/3 ML VIAL SQ SCH ×2 (08:45→12:27)
--- NOTE | 2019-03-25 08:48 | Neurology Progress Note ---
<Yobany Hogan - Last Filed: 03/25/19 08:45> Date of Encounter: 03/25/19 Time of Encounter: 08:45 Assessment and Plan (1) CVA (cerebral vascular accident) Current Visit: Yes Status: Acute This is an unfortunate 83-year-old female who suffered an acute CVA and broke his area. She was seen in follow-up this morning, there are no new neurological deficits found on today's exam however, she continues to have persistent dysarthria. Again, the infarct pattern on the MRI suggestive of an embolic event. 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 As such we are recommending the addition of oral anticoagulation due to recurrent secondary stroke prevention therapy of antiplatelet and statin drugs. Unfortunately, I do not suspect that she would be a candidate for an intervention regarding the findings of Lambl's excrescence, therefore medical management as stated above is appropriate. In addition to this she will need aggressive risk factor modifications. Continue with PT/OT and speech therapy. Otherwise, continue medical and supportive care. Qualifiers: CVA mechanism: unspecified Qualified Code(s): I63.9 - Cerebral infarction, unspecified Subjective Principal diagnosis: acute CVA Interval history: The chart was reviewed, BRENDA results reviewed as well with concerns for Lambl's excrescence. The patient was seen and examined at the bedside this morning was alert and oriented 3, in no acute distress and able to follow commands appropriately. In brief this is an unfortunate 83-year-old female who has had an acute CVA and Brocha's area. As such she is left with significant dysphagia and atrophy of the right tongue as well as right facial droop. There have been no acute changes to her neurological status overnight and there are no new or logical deficits found on exam this morning. I discussed the BRENDA findings with the patient and stated that this was most likely what caused the embolic event resulting in the acute CVA. I further discussed the need for adding an oral anticoagulant to her medication profile for secondary stroke prevention in the setting of an embolic event. The patient was able to nod her head in agreement and not in that she understood these findings. My recommendations will be dis cussed with the primary team. Objective - Constitutional Vitals: Temp Pulse Resp BP Pulse Ox 97.8 F 80 16 145/79 96 03/25/19 08:12 03/25/19 08:12 03/25/19 08:12 03/25/19 08:12 03/25/19 08:12 Exam: General Examination: *CONSTITUTIONAL: Awake, alert and oriented x3 *GENERAL APPEARANCE OF PATIENT Generally ill elderly obese female *EYES: pupils equal, round, reactive to light and accommodation, conjunctiva clear *CARDIOVASCULAR no peripheral edema, distal temperature normal, dorsalis pedis pulses normal. See vital signs Musculoskeletal: *GAIT AND STATION deferred d/t chronic b/l leg weakness; wheelchair dependant at baseline *ASSESSMENT OF MUSCLE STRENGTH IN THE UPPER AND LOWER EXTREMITIES Right deltoid, bicep, tricep and score caller strength 4/5, left deltoid, bicep, tricep and score caller strength. She appears to have 3/5 strength of both lower extremities in all muscle groups. *MUSCLE TONE IN THE UPPER AND LOWER EXTREMITIES normal. No abnormal movements, fasciculations or atrophy identified. Neurological: *ORIENTATION to place, person, situation, date and current President *RECURRENT AND REMOTE MEMORY intact *ATTENTION AND CONCENTRATION maintains attention and concentration and able to follow commands without difficulty. *LANGUAGE FUNCTION persistent dysarthria but verbal function is improving. There is no component of receptive aphasia present *FUND OF KNOWLEDGE severe dysarthria is persistent but verbal functioning has improving *MENTAL attention and concentration are appropriate and she is able to follow commands and maintain attention without interruption for the need for redirection *CN II optic fundi were normal, no papilledema noted. *CN III,IV, PERRLA extraocular eye movements were full, no nystagmus and no ptosis noted. *CN V shows normal sensation and jaw opens asymmetrically with right facial droop *CN VII continues to have significant right facial droop. *CN VIII shows no significant hearing loss on examination in the office. *CN IX,,X palate elevated symmetrically and normal gag reflex was noted. *CN XI normal strength in the sternocleidomastoid muscles, symmetrical shoulder shrugging. *CN XII tongue protruded in the midline, with atrophy to the right tongue *SENSORY EXAMINATION light touch intact *REFLEXES: deep tendon reflexes were normal and symmetrical , grade 1/4 diffusely, Achilles reflexes are absent symmetrically *CEREBELLAR TESTING normal finger to nose Results - Laboratory Findings CBC and BMP: 03/25/19 03:45 03/25/19 03:45 Abnormal lab findings: Abnormal lab results RBC 3.10 M/mcL (3.82-4.97) L 03/25/19 03:45 Hgb 9.9 g/dL (11.5-15.4) L 03/25/19 03:45 Hct 30.8 % (35.3-44.9) L 03/25/19 03:45 MCHC 31.5 g/dL (31.6-35.5) L 03/24/19 04:18 APTT 36.5 Seconds (26.0-36.0) H 03/19/19 16:34 Chloride 110 mEq/L (98-107) H 03/25/19 03:45 BUN 36 mg/dL (8-23) H 03/25/19 03:45 1.50 mg/dL (0.60-1.20) H 03/25/19 03:45 Est GFR ( Amer) 40 (> 60) L 03/25/19 03:45 Est GFR (Non-Af Amer) 33 (> 60) L 03/25/19 03:45 Glucose 206 mg/dL (70-105) H 03/25/19 03:45 POC Glucose 278 mg/dL (70-99) H 03/24/19 20:24 8.4 % (-5.6) H 03/20/19 00:50 312 (280-300) H 03/25/19 03:45 Calcium 8.4 mg/dL (8.6-10.3) L 03/25/19 03:45 3.4 g/dL (3.5-5.7) L 03/20/19 00:50 Cloudy (Clear) A 03/20/19 22:12 100 mg/dL (Neg-Trace) H 03/20/19 22:12 Trace (Negative) H 03/20/19 22:12 Positive (Negative) A 03/20/19 22:12 Ur Leukocyte Esterase Large (Negative) H 03/20/19 22:12 TNTC per hpf (0-3) H 03/20/19 22:12 Ur Culture Indicated? YES (NO) A 03/20/19 22:12 - Diagnostic Findings Additional findings: Impressions: No evidence of inter-atrial shunting noted with saline contrast. Small, mobile, filamentous echo densities observed on the tips of the aortic valve leaflets may represent Lambl's excrescence. Normal LV and RV systolic function. Consult Discharge Plan - Plan Referrals: Yissel Mclean MD [Primary Care Provider] - (Physician will see patient when she returns to facility. ) Prescriptions: Apixaban [Eliquis] 2.5 mg PO BID #60 tablet Insulin Glargine [Lantus] 30 unit SQ HS #10 mls levoFLOXacin [Levaquin] 250 mg PO DAILY #7 tablet <Marck Zamora I - Last Filed: 03/25/19 10:55> Date of Encounter: 03/25/19 Assessment and Plan (1) CVA (cerebral vascular accident) Current Visit: Yes Status: Acute I have personally performed a face to face diagnostic evaluation, including HPI, EXAM, which is included in the Assesment and plan, which was discussed with Yobany Hogan CNP, I agree with the above outlined documentation. Marck Zamora MD. NeurologyI Qualifiers: Qualified Code(s): I63.9 - Cerebral infarction, unspecified Objective - Constitutional Vitals: Temp Pulse Resp BP Pulse Ox 97.8 F 80 16 145/79 96 03/25/19 08:12 03/25/19 08:12 03/25/19 08:12 03/25/19 08:12 03/25/19 08:12 Results - Laboratory Findings CBC and BMP: 03/25/19 03:45 03/25/19 03:45 Abnormal lab findings: Abnormal lab results RBC 3.10 M/mcL (3.82-4.97) L 03/25/19 03:45 Hgb 9.9 g/dL (11.5-15.4) L 03/25/19 03:45 Hct 30.8 % (35.3-44.9) L 03/25/19 03:45 MCHC 31.5 g/dL (31.6-35.5) L 03/24/19 04:18 APTT 36.5 Seconds (26.0-36.0) H 03/19/19 16:34 Chloride 110 mEq/L (98-107) H 03/25/19 03:45 BUN 36 mg/dL (8-23) H 03/25/19 03:45 1.50 mg/dL (0.60-1.20) H 03/25/19 03:45 Est GFR ( Amer) 40 (> 60) L 03/25/19 03:45 Est GFR (Non-Af Amer) 33 (> 60) L 03/25/19 03:45 Glucose 206 mg/dL (70-105) H 03/25/19 03:45 POC Glucose 278 mg/dL (70-99) H 03/24/19 20:24 8.4 % (-5.6) H 03/20/19 00:50 312 (280-300) H 03/25/19 03:45 Calcium 8.4 mg/dL (8.6-10.3) L 03/25/19 03:45 3.4 g/dL (3.5-5.7) L 03/20/19 00:50 Cloudy (Clear) A 03/20/19 22:12 100 mg/dL (Neg-Trace) H 03/20/19 22:12 Trace (Negative) H 03/20/19 22:12 Positive (Negative) A 03/20/19 22:12 Ur Leukocyte Esterase Large (Negative) H 03/20/19 22:12 TNTC per hpf (0-3) H 03/20/19 22:12 Ur Culture Indicated? YES (NO) A 03/20/19 22:12
[2019-03-25] MEDS: 0.9 % Sodium Chloride 1,000 ML IVC SCH (10:12)
[2019-03-25] MEDS: Aspirin 81 MG TAB.CHEW PO SCH (10:14)
[2019-03-25] MEDS: levoFLOXacin 250 MG TABLET PO SCH (10:15)
[2019-03-25] MEDS ORDERED: Apixaban 5 MG TABLET PO SCH (10:45)
--- NOTE | 2019-03-25 10:45 | Physician Discharge Referral ---
ExtendedCare Referral Info Transfer To: ECF Provider in Charge after Transfer: Other Institutional Level of Care: Skilled - Diagnosis (1) CVA (cerebral vascular accident) Priority: Primary Status: Acute (2) CAD (coronary artery disease) Priority: Secondary Status: Acute (3) Diabetes mellitus Priority: Secondary Status: Acute (4) HTN (hypertension) Priority: Secondary Status: Acute (5) Congestive heart failure Priority: Secondary Status: Acute (6) UTI (urinary tract infection) Priority: Primary Status: Acute (7) CKD (chronic kidney disease) stage 3, GFR 30-59 ml/min Priority: Secondary Status: Chronic (8) DVT prophylaxis Priority: Primary Status: Acute - Transfer Medications Home Medications: Acetaminophen [Tylenol] 650 mg PO Q4H PRN 03/12/17 [History] Glimepiride [Amaryl] 4 mg PO BID 03/12/17 [History] Insulin LISPRO [HumaLOG] 2 - 12 units SQ ACHS 03/12/17 [History] Metoprolol [Lopressor] 25 mg PO BID 03/12/17 [History] Furosemide [Lasix] 20 mg PO DAILY #30 tablet 03/18/17 [Rx] Lisinopril 2.5 mg PO DAILY #30 tablet 03/18/17 [Rx] Omeprazole [PriLOSEC] 20 mg PO BID #60 capsule. 03/18/17 [Rx] Acetaminophen [Tylenol 650mg SUPP] 650 mg RC Q4H PRN 03/19/19 [History] Insulin Glargine [Lantus] 26 unit SQ QAM 03/19/19 [History] Lidocaine HCl [Aspercreme] 1 gm TP Q6H PRN 03/19/19 [History] Polyvinyl Alcohol [Artificial Tears] 1 drop OP BID PRN 03/19/19 [History] Allergies/Adverse Reactions: Allergy/AdvReac Type Severity Reaction Status Date / Time sulfamethoxazole AdvReac See Verified 03/12/17 18:49 [From Bactrim] Comments trimethoprim [From Bactrim] AdvReac See Verified 03/12/17 18:49 Comments - Respiratory Orders Smoking Cessation: Smoking cessation has been advised. For more information, call the [place] Tobacco Quit Line at 7-234-FFGJ-NOW. - Advance Directives Code Status: DNR-Arrest/Don't Intubate - Mobility Orders Bedrest CERTIFICATION: I certify that the transfer of the above named patient to an Extended Care Facility is necessary for the continuing treatment of the diagnosis listed. The above information is true and accurate reflection of patient's current condit ion. Confidential - Redisclosure prohibited without a patient's written consent.
--- NOTE | 2019-03-25 10:46 | Discharge Summary ---
- NOTES TO OUTPATIENT PROVIDER Notes to Outpatient Provider: f/u with PCP within 2 weeks. f/u with Neurology within a month. Date of Encounter: 03/25/19 Time of Encounter: 10:46 - Discharge Diagnosis (1) CVA (cerebral vascular accident) Priority: Primary Status: Acute Qualifiers: CVA mechanism: unspecified Qualified Code(s): I63.9 - Cerebral infarction, unspecified (2) CAD (coronary artery disease) Priority: Secondary Status: Acute Qualifiers: Coronary Disease-Associated Artery/Lesion type: [place] artery [place] vs. transplanted heart: [place] heart Associated angina: angina presence u nspecified Qualified Code(s): I25.10 - Atherosclerotic heart disease of [place] coronary artery without angina pectoris (3) Diabetes mellitus Priority: Secondary Status: Chronic Qualifiers: Diabetes mellitus type: type 2 Diabetes mellitus vermin exterminator insulin use: with vermin exterminator use Diabetes mellitus complication status: without complication Qualified Code(s): E11.9 - Type 2 diabetes mellitus without complications; Z79.4 - long term care social worker (current) use of insulin (4) HTN (hypertension) Priority: Secondary Status: Chronic Qualifiers: Hypertension type: essential hypertension Qualified Code(s): I10 - Essential (primary) hypertension (5) Congestive heart failure Priority: Secondary Status: Chronic Qualifiers: Heart failure chronicity: unspecified Qualified Code(s): I50.9 - Heart failure, unspecified (6) UTI (urinary tract infection) Priority: Primary Status: Acute Qualifiers: Urinary tract infection type: site unspecified Hematuria presence: without hematuria Qualified Code(s): N39.0 - Urinary tract infection, site not specified (7) CKD (chronic kidney disease) stage 3, GFR 30-59 ml/min Priority: Secondary Status: Chronic (8) DVT prophylaxis Priority: Primary Status: Acute Hospital course: Ms. Sanchez is a 83 year old female with past medical history of coronary artery disease, hypertension, dementia, diabetes, and DVT who presented from [facility] due to concern for stroke-like symptoms. Information obtained from medical records patient is a poor historian and has significant dysarthria on current presentation. Per EMS patient was last seen well at 7 AM earlier today. Reports of dysarthria and weakness on the left side. Stroke alert was called shortly after arrival. Workup including CT of the head and CTA of the head and neck was unremarkable for any acute findings. Laboratory workup was also relatively benign aside for mild elevation in patient's creatinine. On arrival patient was hypertensive with a blood pressure 174/149. Patient will be admitted for CVA workup. MRI of brain showed scattered small acute infarctions in the posterior left frontal lobe, and the left MCA territory, tiny old infarctions in the bilateral cerebellar hemispheres, tiny old lacunar infarctions in the bilateral periventricular white matter. Neurology was consulted, embolic stroke was suspected. An initial trans-thoracic echocardiogram failed to reveal any cardiac related embolus. A transesophageal echocardiogram was performed which showed no evidence of intraoral atrial shunting, small, mobile, filamentous echo densities observed on the tips of aortic valve leaflets may represent Lambl's excrescence, normal LV and RV systolic function. Neurology recommended anticoagulation, patient was started on Eliquis with modified a dose due to age and impaired renal function. While in the hospital, patient urine culture grew E. coli. She was started on IV Rocephin and later was switched to oral Levaquin. After admission, her oral intake was poor, creatinine was elevated, she requires IV fluid. Patient was educated and encouraged to take oral. She may also need assistance in feeding at times. She passed a swallow evaluation was placed on diabetic/cardiac diet. Patient will be discharged back to [facility] today, she was instructed to continue taking oral antibiotics, continue taking Eliquis as prescribed, take more fluid to avoid dehydration. She will also f/u with PCP and neurology as scheduled. Discharge discussed with: patient, family Time spent discussing smoking cessation with patient: more than 10 minutes - Time Spent with Patient Total time spent providing and/or coordinating discharge services: Time spent: Greater than 30 minutes - Discharge Medications Prescriptions: New Apixaban [Eliquis] 2.5 mg PO BID #60 tablet Insulin Glargine [Lantus] 30 unit SQ HS #10 mls levoFLOXacin [Levaquin] 250 mg PO DAILY #7 tablet Continued Insulin LISPRO [HumaLOG] 2 - 12 units SQ ACHS Acetaminophen [Tylenol] 650 mg PO Q4H PRN PRN Reason: Mild Pain Metoprolol [Lopressor] 25 mg PO BID Omeprazole [PriLOSEC] 20 mg PO BID #60 capsule. Lisinopril 2.5 mg PO DAILY #30 tablet Acetaminophen [Tylenol 650mg SUPP] 650 mg RC Q4H PRN PRN Reason: T>100 Lidocaine HCl [Aspercreme] 1 gm TP Q6H PRN PRN Reason: LEFT KNEE PAIN Polyvinyl Alcohol [Artificial Tears] 1 drop OP BID PRN PRN Reason: Dry Eyes Discontinued Glimepiride [Amaryl] 4 mg PO BID Furosemide [Lasix] 20 mg PO DAILY #30 tablet Insulin Glargine [Lantus] 26 unit SQ QAM Home Medications: Acetaminophen [Tylenol] 650 mg PO Q4H PRN 03/12/17 [History] Insulin LISPRO [HumaLOG] 2 - 12 units SQ ACHS 03/12/17 [History] Metoprolol [Lopressor] 25 mg PO BID 03/12/17 [History] Lisinopril 2.5 mg PO DAILY #30 tablet 03/18/17 [Rx] Omeprazole [PriLOSEC] 20 mg PO BID #60 capsule. 03/18/17 [Rx] Acetaminophen [Tylenol 650mg SUPP] 650 mg RC Q4H PRN 03/19/19 [History] Lidocaine HCl [Aspercreme] 1 gm TP Q6H PRN 03/19/19 [History] Polyvinyl Alcohol [Artificial Tears] 1 drop OP BID PRN 03/19/19 [History] Apixaban [Eliquis] 2.5 mg PO BID #60 tablet 03/25/19 [Rx] Insulin Glargine [Lantus] 30 unit SQ HS #10 mls 03/25/19 [Rx] levoFLOXacin [Levaquin] 250 mg PO DAILY #7 tablet 03/25/19 [Rx] Allergies/Adverse Reactions: Allergy/AdvReac Type Severity Reaction Status Date / Time sulfamethoxazole AdvReac See Verified 03/12/17 18:49 [From Bactrim] Comments trimethoprim [From Bactrim] AdvReac See Verified 03/12/17 18:49 Comments Date of admission: 03/21/19 08:52 Primary care physician: Yissel Mclean MD Consults: 03/19/19 20:21 Consult to Neurology [CONS] Routine Consulting Provider: Neurology [facility] Reason for Consult: CVA Call Completed: No Consult to Occupational Therapy [CONS] Routine Comment: Evaluate, develop and implement POC Reason for Consult: CVA Does patient have active BEDREST order?: Yes Is patient medically & hemodynamically stable?: Yes Consult to Physical Therapy [CONS] Routine Comment: Evaluate, develop and implement POC Reason for Consult: CVA Does patient have active BEDREST order?: Yes Is patient medically & hemodynamically stable?: Yes Patient assessed for mobility or mobilized this visit?: No Consult to Electrotyper Helper [CONS] Routine Reason for SW Consult: CVA 03/20/19 18:23 Consult to Speech Therapy [CONS] Routine Comment: Evaluate, develop and implement POC Reason for Consult: cva Time Notified: 18:24 Call Completed: No Anticipated date of discharge: 03/25/19 - Constitutional Vitals: Temp Pulse Resp BP Pulse Ox 97.8 F 80 16 145/79 96 03/25/19 08:12 03/25/19 08:12 03/25/19 08:12 03/25/19 08:12 03/25/19 08:12 General appearance: Present: A&O X 3 Exam: General: Alert and oriented 1 however unable to assess person or place due to dysarthria Skin:Normal color, no rash, no lesions. HEENT:EOM, pupils equal, round and reactive. Cardiovascular:Normal S1 & S2, no rubs, murmurs or gallops. No JVD. Pulse regular. Lungs:Normal breath sounds, no wheezes or crackles. Abdomen:Soft, non-tender, no rigidity. Extremities:No deformity, no edema or tenderness, no joint swelling or clubbing. Neurological: Patient able to follow commands. Pupils sluggish to react. Right-sided facial paresis. Remainder of cranial nerves intact. Sensation intact. Muscle strength in the upper extremities 5 out of 5 bilaterally. Muscle strength lower extremities 4 out of 5 bilaterally. No dysmetria Pulses:Carotid and radial pulses normal +2. Rest of the physical exam is non contributory - Patient Status Disposition: Transfer SNF Condition: Fair Functional capacity at discharge: bed bound Overall status at discharge: patient is not back to baseline - Discharge Instructions Follow Up With: Yissel Mclean MD [Primary Care Provider] - (Physician will see patient when she returns to facility. ) - Diet and Activity Activity: resume usual activities as tolerated Diet: diabetic diet, low fat, low cholesterol, low salt diet
[2019-03-25 11:14] VITALS: BP 143/79
[2019-03-25] MEDS ORDERED: Insulin DETEMIR 100 UNIT/ML X5UNITS SQ SCH (21:00)
== END 2019-03-25 15:49 | DRG 65 ==
LOC: 3BNU 16:22 → EMEROOARM 16:22 → 3BNU 21:40
PROVIDERS: ADMIT Internal Medicine Nephrology; ATTEND Internal Medicine Nephrology

== ENCOUNTER 2020-05-28 07:48 | Observation (INO) ==
[2020-05-28] MEDS ORDERED: Ondansetron 4 MG/2 ML VIAL IVP ONE (08:03)
[2020-05-28] MEDS ORDERED: Pantoprazole 40 MG VIAL IVP ONE (08:05)
[2020-05-28] MEDS ORDERED: 0.9 % Sodium Chloride 1,000 ML IVC ONE (08:05)
[2020-05-28] MEDS ORDERED: Isovue-370 500 ML BOTTLE IVP ONE (08:05)
[2020-05-28 09:03] LABS: Basophils % 0.2 %; Eosinophils # 0.1 K/mcL (0.0-0.6); Hematocrit 35.5 % (35.3-44.9); INR 1.2; Immature Granulocytes % 0.7 % (0-4); Lymphocytes # 1.5 K/mcL (0.6-4.6); Lymphocytes % 16.6 %; Mean Corpuscular Hemoglobin 30.1 pg (28.0-33.3); Mean Corpuscular Volume 97.3 fL (83.0-100.0); Mean Platelet Volume 10.3 fL (9.4-12.4); Monocytes # 0.4 K/mcL (0.0-1.3); Monocytes % 4.3 %; Neutrophils # 6.8 K/mcL (1.6-8.9); Platelet Count 191 K/mcL (140-400); Prothrombin Time 13.1 Seconds (9.4-12.1); Red Blood Count 3.65 M/mcL (3.82-4.97); Segmented Neutrophils % 77.2 %; White Blood Count 8.8 K/mcL (4.3-11.1)
[2020-05-28 09:17] LABS: Albumin 3.3 g/dL (3.5-5.7); Bilirubin,Total 0.5 mg/dL (0.3-1.0); Calcium 9.1 mg/dL (8.6-10.3); Globulin 3.3 g/dL (2.4-3.5); Potassium 4.4 mEq/L (3.5-5.1); Total Protein 6.6 g/dL (6.4-8.9)
[2020-05-28 09:47] LABS: Adenovirus Not Detected (Not Detect); Bordetella Pertussis Not Detected (Not Detect); Chlamydophila pneumoniae Not Detected (Not Detect); Coronavirus 229E Not Detected (Not Detect); Coronavirus HKU1 Not Detected (Not Detect); Coronavirus NL63 Not Detected (Not Detect); Coronavirus OC43 Not Detected (Not Detect); Human Metapneumovirus Not Detected (Not Detect); Human Rhinovirus/Enterovirus Not Detected (Not Detect); Influenza A Subtype 2009 H1 Not Detected (Not Detect); Influenza B Not Detected (Not Detect); Mycoplasma pneumoniae Not Detected (Not Detect); Parainfluenza Virus 1 Not Detected (Not Detect); Parainfluenza Virus 2 Not Detected (Not Detect); Parainfluenza Virus 3 Not Detected (Not Detect); Parainfluenza Virus 4 Not Detected (Not Detect); Respiratory Syncytial Virus Not Detected (Not Detect)
[2020-05-28] MEDS ORDERED: *HR* Promethazine 25 MG/ML VIAL IVP ONE (11:26)
[2020-05-28] MEDS ORDERED: Naloxone 0.4 MG/ML INJ IVP PRN (15:15)
[2020-05-28] MEDS ORDERED: Ondansetron 4 MG/2 ML VIAL IVP PRN (15:15)
[2020-05-28] MEDS ORDERED: Acetaminophen 325 MG TABLET PO PRN (15:20)
[2020-05-28] MEDS ORDERED: *HR* Dextrose 50 % in Water (Vial) 50 ML VIAL IVP PRN (15:57)
[2020-05-28] MEDS ORDERED: D5% in Water 1,000 ML IVC PRN (15:57)
[2020-05-28] MEDS ORDERED: Dextrose Gel 15 GM/37.5 ML TUBE PO PRN ×2 (15:57)
[2020-05-28] MEDS: Ringers Solution, Lactated 1,000 ML IVC SCH (16:25)
[2020-05-28 17:23] LABS: Hematocrit 31.6 % (35.3-44.9); Hemoglobin 9.9 g/dL (11.5-15.4)
[2020-05-28] MEDS: Pantoprazole 40 MG VIAL IVP SCH (17:26)
[2020-05-28] MEDS: Insulin LISPRO 300 UNITS/3 ML VIAL SQ SCH (17:28)
[2020-05-28] MEDS ORDERED: Trolamine Salicylate/Aloe Vera 85 APPL/85 GM TUBE TP PRN (17:28)
[2020-05-29] MEDS: Pantoprazole 40 MG VIAL IVP SCH (05:12)
[2020-05-29] MEDS: Ringers Solution, Lactated 1,000 ML IVC SCH (07:24)
[2020-05-29] MEDS: Insulin LISPRO 300 UNITS/3 ML VIAL SQ SCH ×2 (07:48→11:43)
[2020-05-29] MEDS ORDERED: lisinopriL 5 MG TABLET PO SCH (09:00)
[2020-05-29 10:10] LABS: Hematocrit 30.9 % (35.3-44.9); Hemoglobin 10.5 g/dL (11.5-15.4)
[2020-05-29 11:54] VITALS: BP 116/54
== END 2020-05-29 14:59 ==
LOC: EMEROOARM 07:48 → 2NENU 07:48 → SUATTDRO 13:33 → 2NENU 16:32
PROVIDERS: ADMIT Family Medicine; ATTEND Family Medicine